=== PATIENT | male | born 1965 | race Caucasian/White ===

== ENCOUNTER 2022-01-20 07:43 | Outpatient (REF) | payer MEDICAID, SELFPAY ==
--- NOTE | 2022-01-20 07:58 | EEG_ITS ---
The waking background activity consists of a moderate voltage, 7 hertz, diffuse theta intermixed with low voltage fast frequencies anteriorly. Photic stimulation is without activation. Hyperventilation was omitted. No sleep stages identified. No focal, lateralizing, or paroxysmal discharges seen. IMPRESSION: This is an abnormal EEG due to mild diffuse background slowing consistent with a diffuse encephalopathic process. No epileptiform discharges or focal abnormalities are seen. MD GARRET Conley/CAIO / [id number]
== END 2022-01-20 07:44 | disposition home or self-care (01) ==
LOC: HO.NEURO 07:43
PROVIDERS: PCP Hospitalist; Visit Provider Hospitalist
DX: S06.5X9S Traumatic subdural hemorrhage with loss of consciousness of unspecified duration, sequela (principal); S06.2X9S Diffuse traumatic brain injury with loss of consciousness of unspecified duration, sequela
CPT/HCPCS: 95816

== ENCOUNTER 2023-03-09 11:24 | Outpatient (AMB) | payer OTHER, SELFPAY ==
--- NOTE | 2023-03-09 11:26 | MHC.OFFVIS ---
Intake Vital Signs 03/09/23 11:28 Height 5 ft 11 in Weight 231 lb 7.766 oz BMI 32.3 BP 108/68 Blood Pressure Location Lt brachial Position Sitting Pulse 62 Intake Visit Reasons: Colonoscopy Screening Intake Note: Raymond presents in the office as a new patient colonoscopy screening. CC: He is not having any concerns today just nervous for the colonoscopy. Allergies No Known Allergies Allergy (Verified 03/09/23 11:28) HPI Colonoscopy Screening HPI Details 57 year old? 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 Patient is here from [facility] accompanied by staff. Patient was sent to us by his PCP.? This is his first colonoscopy screening.? Patient denies any gastrointestinal symptoms in the past or at present.? Patient is alert and oriented for the most part. Able to answer questions. Denies any personal or family history of gastrointestinal disease, colon polyps, or cancer.? Denies history of difficulty with sedation or anesthesia in the past.? Negative for history of sleep apnea.? Denies any history of cardiac, renal, pulmonary, or hepatic disease.?? No history of infectious? diseases like hepatitis A, B, C, HIV or tuberculosis.? Patient is not on any anticoagulation therapy. COUNT INCLUDES [facility] Medical History (Updated 03/09/23 @ 14:22 by Zakia Monreal [facility]) Traumatic subdural hematoma with loss of consciousness BPH (benign prostatic hyperplasia) Hypothyroidism (acquired) Schizophrenia Diffuse traumatic brain injury Social History (Updated 03/09/23 @ 11:29 by DAYTON Mayorga) Household Members: None and Other Alcohol intake: current Alcohol intake frequency: does not drink Tobacco use type: Cigarette Cigarette Packs Per Day: 0.5 Use of substances other than those prescribed or required for medical reasons: No Review of Systems Const Denies weight gain and Denies weight loss ENT Reports no additional complaints, Denies dysphagia and Denies odynophagia Card Reports no additional complaints Resp Reports no additional complaints GI Denies abdominal pain, Denies belching, Denies melena, Denies bloating, Denies change in bowel habits, Denies dysphagia, Denies excessive flatus, Denies dyspepsia, Denies heartburn, Denies diarrhea, Denies loose stools, Denies nausea, Denies odynophagia and Denies vomiting Reports no additional complaints Musc Reports no additional complaints Neuro Reports no additional complaints Psych Reports no additional complaints Endo Reports no additional complaints Physical Exam Vital Signs: Last Vital Signs Pulse 62 03/09/23 11:28 BP 108/68 03/09/23 11:28 BMI result Body Mass Index 32.3 Const General: healthy appearing, no acute distress and well developed Nutritional Appearance: well nourished Orientation/consciousness: oriented to person and oriented to place Limitations: behavioral limitations HEENT Head: Yes normal to inspection, Yes normocephalic and Yes atraumatic Face and sinus: Yes normal facial exam Mouth: Normal oral and palatal mucosa present Throat: Yes posterior oropharynx normal, Yes tonsils normal and Yes uvula midline Eyes General: appearance normal, both eyes and all related structures Neck Neck: Yes normal visual inspection, Yes full ROM and Yes trachea midline Thyroid: Thyroid normal Resp Effort & Inspection: normal respiratory effort, able to speak in complete sentences, no tracheal deviation and symmetric chest movement Auscultation: clear to auscultation bilaterally Cardio Rate: regular rate Heart sounds: S1 normal heart sound present and S2 normal heart sound present GI Inspection: Yes normal to inspection, No distended and Yes obesity Palpation (GI): Soft to palpation, not firm, nontender and No hepatosplenomegaly present Auscultation: normal bowel sounds General: Yes no CVA tenderness Back/Spine/Pelvis Back: no CVA tenderness Skin General skin exam: elasticity normal, turgor normal and dry skin Neuro General: oriented to person and oriented to place Psych Appearance: grossly normal Mental Status: mental status grossly normal Speech and movement: Clear speech present Assessment & Plan Assessment & Plan (1) Screen for colon cancer: Code(s): Z12.11 - Encounter for screening for malignant neoplasm of colon Plan: Patient denies any GI, cardiac or respiratory symptoms.? Denies any issues with anesthesia in the past.? Denies any history of sleep apnea.? No history infectious diseases in the past or present.? Not on any anticoagulation therapy.? No family or personal history of colon cancer or polyps.? Patient denies melena, hematochezia, unintentional weight loss or ribbon like stools.? Discussed at length the pre-procedure,? prep, diet & medications as well as what to expect prior, during and after the procedure.?? Stressed the importance of good bowel prep. ?Recommended the use of Vaseline or Calmoseptine OTC & baby wipes with bowel movements to promote comfort.? ?Patient verbalizes understanding and agrees to plan of care.? He was given the opportunity to ask questions and all questions answered.? We will see him after the procedure.? Medications: New polyethylene glycol 3350 (Miralax) As directed by gastroenterology department at [facility] 238 grams PO ONCE 238 grams 0RF Z12.11 - Encounter for screening for malignant neoplasm of colon bisacodyl (Dulcolax (bisacodyl)) take 2 tabs at noon the day before your colonoscopy 10 mg (2 x 5 mg) PO ONCE 1 day 2 tabs 0RF Z12.11 - Encounter for screening for malignant neoplasm of colon Coding Level of Care Code New Pt Level 3 (24190) Diagnoses Screen for colon cancer Z12.11 Time Spent (min) 40 Comment 30 minutes spent with patient and additional 10 minutes spent reviewing his records
[2023-03-09 11:28] VITALS: BP 108/68; PULSE 62; BMI 32.3
== END 2023-03-09 12:52 | disposition home or self-care (01) ==
PROVIDERS: PCP Hospitalist; Visit Provider Nurse Practitioner Family
DX: Z12.11 Encounter for screening for malignant neoplasm of colon (principal); Z01.818 Encounter for other preprocedural examination
CPT/HCPCS: 99203

== ENCOUNTER → 2023-03-09 11:24 | Outpatient (BNVA) | payer MEDICAID, SELFPAY | PROVIDERS: PCP Hospitalist; Visit Provider Nurse Practitioner Family | DX: Z01.818 Encounter for other preprocedural examination (principal) | CPT/HCPCS: 99202 ==

== ENCOUNTER 2023-06-16 06:27 | Day surgery (SDC) | payer MEDICAID, SELFPAY ==
[2023-06-14 12:56] VITALS: BMI 32.2
--- NOTE | 2023-06-15 11:49 | HO.ANESPROP2 ---
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, schizophrenia [facility] Past Medical History Medical History Personal history of COVID-19 Presbyopia Dysphagia Zygomatic fracture, left side, sequela Zygomatic fracture, right side, sequela Opioid abuse Insomnia Constipation Traumatic subdural hematoma with loss of consciousness BPH (benign prostatic hyperplasia) Hypothyroidism (acquired) Schizophrenia Diffuse traumatic brain injury Social History Social History Household Members: None and Other Alcohol intake: current Alcohol intake frequency: former alcohol drinker Patient Tobacco Use Status: Former Tobacco user Tobacco use type: Cigarette Cigarette Packs Per Day: 0.5 Are you DNR?: No Advance Directives: No Advance Directives Information Provided: Yes Nutrition Risks: No Nutritional Risk Meds Allergies Allergy/AdvReac Type Severity Reaction Status Date / Time No Known Allergies Allergy Verified 03/09/23 11:28 Home Medications Medication Instructions Recorded Confirmed Last Taken Type acetaminophen 325 mg tablet 325 mg PO QID PRN Pain 03/09/23 06/14/23 Unknown History benztropine 1 mg tablet 1 mg PO BEDTIME 03/09/23 06/14/23 Unknown History clonazepam 0.5 mg tablet 0.5 mg PO BID 03/09/23 06/14/23 Unknown History clozapine 25 mg tablet 75 mg PO BEDTIME 03/09/23 06/14/23 Unknown History ibuprofen 600 mg tablet 600 mg PO Q6H PRN Back Pain 03/09/23 06/14/23 Unknown History lactulose 10 gram/15 mL oral 30 ml PO BID 03/09/23 06/14/23 Unknown History solution propranolol 20 mg tablet 20 mg PO DAILY 03/09/23 06/14/23 Unknown History divalproex 250 mg tablet,extended 250 mg PO DAILY 06/14/23 06/14/23 Unknown History release 24 hr divalproex 500 mg tablet,extended 500 mg PO BEDTIME 06/14/23 06/14/23 Unknown History release 24 hr docusate sodium 100 mg capsule 100 mg PO DAILY 06/14/23 06/14/23 Unknown History guaifenesin 200 mg/5 mL oral liquid 400 mg PO Q4H PRN Congestion 06/14/23 06/14/23 Unknown History levothyroxine 50 mcg tablet 50 mcg PO DAILY 06/14/23 06/14/23 Unknown History lithium carbonate 300 mg tablet 300 mg PO BID 06/14/23 06/14/23 Unknown History polyethylene glycol 3350 17 238 g PO ONCE 06/14/23 06/14/23 Unknown History gram/dose oral powder (Miralax) sennosides 8.6 mg tablet (senna) 8.6 mg PO DAILY PRN Constipation 06/14/23 06/14/23 Unknown History sodium phosphates 19 gram-[address] DAILY PRN Constipation 06/14/23 06/14/23 Unknown History gram/118 mL enema (Fleet Enema) tamsulosin 0.4 mg capsule 0.4 mg PO BEDTIME 06/14/23 06/14/23 Unknown History Exam Height,Weight and Vital Signs: Height 5 ft 11 in Weight 104.78 kg Assessment and Plan Assessment Anesthesia Assessment: Chart Reviewed Documented by User: Caron Lemon MD 06/16/23 07:46 PMF[facility] Past Medical History Medical History Personal history of COVID-19 Presbyopia Dysphagia Zygomatic fracture, left side, sequela Zygomatic fracture, right side, sequela Opioid abuse Insomnia Constipation Traumatic subdural hematoma with loss of consciousness BPH (benign prostatic hyperplasia) Hypothyroidism (acquired) Schizophrenia Diffuse traumatic brain injury Family History Family history of problems with anesthesia: No Surgical History History of Problems with Anesthesia: Yes Social History Social History Household Members: None and Other Alcohol intake: current Alcohol intake frequency: former alcohol drinker Patient Tobacco Use Status: Former Tobacco user Tobacco use type: Cigarette Cigarette Packs Per Day: 0.5 Are you DNR?: No Advance Directives: No Advance Directives Information Provided: Yes Nutrition Risks: No Nutritional Risk Meds Allergies Allergy/AdvReac Type Severity Reaction Status Date / Time No Known Allergies Allergy Verified 03/09/23 11:28 Home Medications Medication Instructions Recorded Confirmed Last Taken Type acetaminophen 325 mg tablet 325 mg PO QID PRN Pain 03/09/23 06/14/23 Unknown History benztropine 1 mg tablet 1 mg PO BEDTIME 03/09/23 06/14/23 Unknown History clonazepam 0.5 mg tablet 0.5 mg PO BID 03/09/23 06/14/23 Unknown History clozapine 25 mg tablet 75 mg PO BEDTIME 03/09/23 06/14/23 Unknown History ibuprofen 600 mg tablet 600 mg PO Q6H PRN Back Pain 03/09/23 06/14/23 Unknown History lactulose 10 gram/15 mL oral 30 ml PO BID 03/09/23 06/14/23 Unknown History solution propranolol 20 mg tablet 20 mg PO DAILY 03/09/23 06/14/23 Unknown History divalproex 250 mg tablet,extended 250 mg PO DAILY 06/14/23 06/14/23 Unknown History release 24 hr divalproex 500 mg tablet,extended 500 mg PO BEDTIME 06/14/23 06/14/23 Unknown History release 24 hr docusate sodium 100 mg capsule 100 mg PO DAILY 06/14/23 06/14/23 Unknown History guaifenesin 200 mg/5 mL oral liquid 400 mg PO Q4H PRN Congestion 06/14/23 06/14/23 Unknown History levothyroxine 50 mcg tablet 50 mcg PO DAILY 06/14/23 06/14/23 Unknown History lithium carbonate 300 mg tablet 300 mg PO BID 06/14/23 06/14/23 Unknown History polyethylene glycol 3350 17 238 g PO ONCE 06/14/23 06/14/23 Unknown History gram/dose oral powder (Miralax) sennosides 8.6 mg tablet (senna) 8.6 mg PO DAILY PRN Constipation 06/14/23 06/14/23 Unknown History sodium phosphates 19 gram-[address] DAILY PRN Constipation 06/14/23 06/14/23 Unknown History gram/118 mL enema (Fleet Enema) tamsulosin 0.4 mg capsule 0.4 mg PO BEDTIME 06/14/23 06/14/23 Unknown History Exam Airway Mallampati Class: III TM Dist: <=3cm Neck ROM: Limited Heart: rrr Lungs: cta Assessment and Plan Assessment Anesthesia Assessment: Anesthesia Plan Discussed (telephone consent) Final Anesthetic Review Family History of Problems with Anesthesia: No History of Problems with Anesthesia: Yes NPO: Yes ASA Class: III Final Preanesthetic Review: No Changes in Pt Med Stat, Meds/Allgs Chart Reviewed, Consent Obtained/Reviewed and Anes Risks/Benef Reviewed Patient Risk: Intermediate Procedure Risk: Low Anesthetic Plan Anesthetic Plan: MAC: Disposition: Standard PACU Documented by User: Sneha Emery MD 06/16/23 09:05 [facility] Past Medical History Medical History Personal history of COVID-19 Presbyopia Dysphagia Zygomatic fracture, left side, sequela Zygomatic fracture, right side, sequela Opioid abuse Insomnia Constipation Traumatic subdural hematoma with loss of consciousness BPH (benign prostatic hyperplasia) Hypothyroidism (acquired) Schizophrenia Diffuse traumatic brain injury Social History Social History Household Members: None and Other Alcohol intake: current Alcohol intake frequency: former alcohol drinker Patient Tobacco Use Status: Former Tobacco user Tobacco use type: Cigarette Cigarette Packs Per Day: 0.5 Are you DNR?: No Advance Directives: No Advance Directives Information Provided: Yes Nutrition Risks: No Nutritional Risk Meds Allergies Allergy/AdvReac Type Severity Reaction Status Date / Time No Known Allergies Allergy Verified 03/09/23 11:28 Home Medications Medication Instructions Recorded Confirmed Last Taken Type acetaminophen 325 mg tablet 325 mg PO QID PRN Pain 03/09/23 06/14/23 Unknown History benztropine 1 mg tablet 1 mg PO BEDTIME 03/09/23 06/14/23 Unknown History clonazepam 0.5 mg tablet 0.5 mg PO BID 03/09/23 06/14/23 Unknown History clozapine 25 mg tablet 75 mg PO BEDTIME 03/09/23 06/14/23 Unknown History ibuprofen 600 mg tablet 600 mg PO Q6H PRN Back Pain 03/09/23 06/14/23 Unknown History lactulose 10 gram/15 mL oral 30 ml PO BID 03/09/23 06/14/23 Unknown History solution propranolol 20 mg tablet 20 mg PO DAILY 03/09/23 06/14/23 Unknown History divalproex 250 mg tablet,extended 250 mg PO DAILY 06/14/23 06/14/23 Unknown History release 24 hr divalproex 500 mg tablet,extended 500 mg PO BEDTIME 06/14/23 06/14/23 Unknown History release 24 hr docusate sodium 100 mg capsule 100 mg PO DAILY 06/14/23 06/14/23 Unknown History guaifenesin 200 mg/5 mL oral liquid 400 mg PO Q4H PRN Congestion 06/14/23 06/14/23 Unknown History levothyroxine 50 mcg tablet 50 mcg PO DAILY 06/14/23 06/14/23 Unknown History lithium carbonate 300 mg tablet 300 mg PO BID 06/14/23 06/14/23 Unknown History polyethylene glycol 3350 17 238 g PO ONCE 06/14/23 06/14/23 Unknown History gram/dose oral powder (Miralax) sennosides 8.6 mg tablet (senna) 8.6 mg PO DAILY PRN Constipation 06/14/23 06/14/23 Unknown History sodium phosphates 19 gram-[address] DAILY PRN Constipation 06/14/23 06/14/23 Unknown History gram/118 mL enema (Fleet Enema) tamsulosin 0.4 mg capsule 0.4 mg PO BEDTIME 06/14/23 06/14/23 Unknown History Exam Airway Denture: Upper and Lower
--- NOTE | 2023-06-16 06:54 | P.HPSUR_ITS ---
Pre-Procedural Eval Section A Date of Service: 06/16/23 Section B Chief Complaint: screening Relevant Family History (Specify if Yes): No Relevant Social History: Tobacco Use Present Medications: see Short Stay Collaborative assessment Medical History: Significant History (Traumatic subdural hematoma with loss of consciousness BPH (benign prostatic hyperplasia) Hypothyroidism (acquired) Schizophrenia Diffuse traumatic brain injury) History of Previous Operations: No relevant previous surgery Allergies: Allergies Allergy/AdvReac Type Severity Reaction Status Date / Time No Known Allergies Allergy Verified 03/09/23 11:28 Review of Systems Sugical H&P ROS: Negative: Constitution, Cardiovascular, Respiratory, Neurological, Psychiatric, Hem-Onc, Allergic/Immunologic, Gastrointestinal, Genitourinary, Musculoskeletal, Integumentary, Endocrine and Eyes/Ea rs/Nose/Throat Exam Surgical H&P Exam: Normal: HEENT, Normal: Heart, Normal: Lungs, Normal: Extremities, Normal: Abdomen, Normal: Skin and Normal: Neurological Plan Diagnosis/Plan: Unchanged I have reviewed the history and physical and performed a pertinent physical examination on my patient. No changes have occurred unless specified. Time Spent With Patient Time: Total time managing care of this patient today ____ minutes.
[2023-06-16 07:05] VITALS: BP 136/76; PULSE 76; RESP 20; TEMP 36.3; O2SAT 97
[2023-06-16 07:22] VITALS: BMI 29.4
[2023-06-16] MEDS: Lactated Ringers 1,000 ML 100 ML IVCONT (07:38)
--- NOTE | 2023-06-16 08:58 | W.PM.OPN ---
Operative Note Operative Note Date of Service: 06/16/23 Narrative: Operative Information Procedure Description: Colonoscopy Indication: screening Anesthesia: MAC COLONOSCOPY Instrument: Olympus variable stiffness ADULT scope 190L Colonoscopy Monitoring: Vital signs and clinical assessment, continuous EKG monitoring, Pulse oximetry, Carbon Dioxide monitoring and blood pressure monitoring were done throughout the procedure. Colon withdrawal time was 7 minutes. Procedure: The patient was placed in the left lateral decubitis position and pre-procedure medications were administered. After a digital rectal examination of the ano-rectum, the video colonoscope was inserted into the rectum and advanced through the colon to the cecum/TI. The colonoscope was slowly withdrawn in a retrograde panoramic fashion and the colon mucosa was carefully examined including a retroflexed view of the rectum. Findings and interventions are described below. Procedure Difficulty: v difficult--appears to have right inguinal hernia and scope was looping--external hemorrhoid noted Findings: Terminal Ileum-not reached Cecum:not reached Ascending Colon: distal --normal Transverse Colon - 6-8 mm sessile polyp removed with cold snare Descending Colon: moderate diverticulosis Sigmoid Colon: moderate severe diverticulosis- 10 mm sessile polyp removed with cold snare Rectum: Retroflexion with small internal hemorrhoids, grade 1 Anorectum - normal Colon preparation: Gillett Bowel Preparation Scale Right colon; 2 Transverse colon: 2 Left colon; 2 (0 = Unprepared colon segment with mucosa not seen due to solid stool that cannot be cleared. 1 = Portion of mucosa of the colon segment seen, but other areas of the colon segment not well seen due to staining, residual stool and/or opaque liquid. 2 = Minor amount of residual staining, small fragments of stool and/or opaque liquid, but mucosa of colon segment seen well. 3 = Entire mucosa of colon segment seen well with no residual staining, small fragments of stool or opaque liquid) Impression and Post Procedure Diagnosis: incomplete colonoscopy external hemorrhoid polyps internal hemorrhoids diverticular disease Plan: High fiber diet leaflet Avoid straining at stool, epsom salts and sitz bath, anusol supps or cream Repeat Colonoscopy in 6-12 months or earlier if clinically indicated--refer to surgery for hernia assessment Above findings were reviewed with the patient and relevant handouts were provided if indicated.
[2023-06-16 09:51] VITALS: BP 97/63; PULSE 67; RESP 16; TEMP 36.1; O2SAT 96
[2023-06-16 10:07] VITALS: BP 126/87; PULSE 75; RESP 18; TEMP 36.1; O2SAT 97
== END 2023-06-16 10:36 | disposition home or self-care (01) ==
PROVIDERS: PCP Hospitalist; Visit Provider Internal Medicine Gastroenterology
PROC: 0DJD8ZZ Inspection of Lower Intestinal Tract, Via Natural or Artificial Opening Endoscopic (ICD-10-PCS; CPT 45378; principal; 2023-06-16 09:20)
DX: Z12.11 Encounter for screening for malignant neoplasm of colon (principal); D12.5 Benign neoplasm of sigmoid colon; K63.5 Polyp of colon; K57.30 Diverticulosis of large intestine without perforation or abscess without bleeding; K64.0 First degree hemorrhoids; K64.4 Residual hemorrhoidal skin tags; K40.90 Unilateral inguinal hernia, without obstruction or gangrene, not specified as recurrent; N40.0 Benign prostatic hyperplasia without lower urinary tract symptoms; Z87.820 Personal history of traumatic brain injury; F20.9 Schizophrenia, unspecified; E03.9 Hypothyroidism, unspecified; Z79.899 Other long term (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; Z79.1 Long term (current) use of non-steroidal anti-inflammatories (NSAID); Z86.16 Personal history of COVID-19; Z87.19 Personal history of other diseases of the digestive system
CPT/HCPCS: 45385; 88305; J2704

== ENCOUNTER → 2023-06-16 06:27 | Outpatient (BNV) | payer OTHER, SELFPAY | PROVIDERS: PCP Hospitalist; Visit Provider Internal Medicine Gastroenterology | DX: Z12.11 Encounter for screening for malignant neoplasm of colon (principal); D12.3 Benign neoplasm of transverse colon; D12.5 Benign neoplasm of sigmoid colon; K57.30 Diverticulosis of large intestine without perforation or abscess without bleeding; K64.0 First degree hemorrhoids; Z91.198 Patient's noncompliance with other medical treatment and regimen for other reason | CPT/HCPCS: 45385 ==

== ENCOUNTER 2023-06-30 09:40 | Outpatient (AMB) | payer OTHER, SELFPAY ==
--- NOTE | 2023-06-30 09:48 | MHC.OFFVIS ---
Intake Vital Signs 06/30/23 09:49 Height 5 ft 11 in Weight 208 lb BMI 29.0 BP 95/56 L Blood Pressure Location Lt brachial Position Sitting Pulse 64 Intake Visit Reasons: S/p colon Intake Note: Raymond presents in the office as a follow up colonoscopy. CC: He states that he does not remember having a colonoscopy. 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 Denies any issues with anesthesia in the past.? Denies any history of sleep apnea.? No history infectious diseases in the past or present.? Not on any anticoagulation therapy.? No family or personal history of colon cancer or polyps.? Patient denies melena, hematochezia, unintentional weight loss or ribbon like stools.? Discussed at length the pre-procedure,? prep, diet & medications as well as what to expect prior, during and after the procedure.?? Stressed the importance of good bowel prep. ?Recommended the use of Vaseline or Calmoseptine OTC & baby wipes with bowel movements to promote comfort.? ?Patient verbalizes understanding and agrees to plan of care.? He was given the opportunity to ask questions and all questions answered.? We will see him after the procedure.? Plan Medications New polyethylene glycol 3350 (Miralax) As directed by gastroenterology department at [facility] 238 grams PO ONCE 238 grams 0RF Z12.11 bisacodyl (Dulcolax (bisacodyl)) take 2 tabs at noon the day before your colonoscopy 10 mg (2 x 5 mg) PO ONCE 1 day 2 tabs 0RF Z12.11 COLONOSCOPY Findings: Terminal Ileum-not reached Cecum:not reached Ascending Colon: distal --normal Transverse Colon - 6-8 mm sessile polyp removed with cold snare Descending Colon: moderate diverticulosis Sigmoid Colon: moderate severe diverticulosis- 10 mm sessile polyp removed with cold snare Rectum: Retroflexion with small internal hemorrhoids, grade 1 Anorectum - normal Colon preparation: [place] Bowel Preparation Scale Right colon; 2 Transverse colon: 2 Left colon; 2 (0 = Unprepared colon segment with mucosa not seen due to solid stool that cannot be cleared. 1 = Portion of mucosa of the colon segment seen, but other areas of the colon segment not well seen due to staining, residual stool and/or opaque liquid. 2 = Minor amount of residual staining, small fragments of stool and/or opaque liquid, but mucosa of colon segment seen well. 3 = Entire mucosa of colon segment seen well with no residual staining, small fragments of stool or opaque liquid) Impression and Post Procedure Diagnosis: incomplete colonoscopy external hemorrhoid polyps internal hemorrhoids diverticular disease Plan: High fiber diet leaflet Avoid straining at stool, epsom salts and sitz bath, anusol supps or cream Repeat Colonoscopy in 6-12 months or earlier if clinically indicated--refer to surgery for hernia assessment PATHOLOGY RESULTS: Diagnosis A. Colon, transverse, polypectomy: Small fragments of food; no colonic epithelium identified. B. Colon, sigmoid, polypectomy: Tubular adenoma; negative for high-grade dysplasia or carcinoma TODAY'S VISIT: Patient is here today for follow-up and to discuss colonoscopy results. Patient denies any ill effects from the prep, anesthesia or procedure itself. Patient is from [facility] and is accompanied by staff. Patient is able to answer questions, however during the visit he is talking about government and conspiracy. Colonoscopy results and biopsy results as well as recommendation discussed with patient. As mentioned above unable to reach cecum due to possible right inguinal hernia. Patient was referred to surgery and has an appointment on July 14.. Patient denies any melena, hematochezia, unintentional weight loss or ribbon like stools. Patient reports that he is moving his bowels well without any issues. Denies any dyspepsia, dysphagia or odynophagia. No GI concerns today is [facility] Medical History (Updated 06/30/23 @ 17:26 by VASU AlvaradoP-BC) Tubular adenoma Personal history of COVID-19 Presbyopia Dysphagia Zygomatic fracture, left side, sequela Zygomatic fracture, right side, sequela Opioid abuse Insomnia Constipation Traumatic subdural hematoma with loss of consciousness BPH (benign prostatic hyperplasia) Hypothyroidism (acquired) Schizophrenia Diffuse traumatic brain injury Surgical History (Updated 06/30/23 @ 09:50 by DAYTON Mayorga) Hx of colonoscopy Social History Household Members: None and Other Alcohol intake: current Alcohol intake frequency: former alcohol drinker Patient Tobacco Use Status: Former Tobacco user Tobacco use type: Cigarette Cigarette Packs Per Day: 0.5 Review of Systems Const Denies weight gain and Denies weight loss ENT Reports no additional complaints, Denies dysphagia and Denies odynophagia Card Reports no additional complaints Resp Reports no additional complaints GI Denies abdominal pain, Denies belching, Denies melena, Denies bloating, Denies change in bowel habits, Denies dysphagia, Denies excessive flatus, Denies dyspepsia, Denies heartburn, Denies diarrhea, Denies loose stools, Denies nausea, Denies odynophagia and Denies vomiting Reports no additional complaints Musc Reports no additional complaints Neuro Reports no additional complaints Psych Reports no additional complaints Endo Reports no additional complaints Physical Exam Vital Signs: Last Vital Signs Pulse 64 06/30/23 09:49 BP 95/56 L 06/30/23 09:49 BMI result Body Mass Index 29.0 Const General: healthy appearing, no acute distress and well developed Nutritional Appearance: well nourished Orientation/consciousness: oriented to person Limitations: behavioral limitations HEENT Head: Yes normal to inspection, Yes normocephalic and Yes atraumatic Face and sinus: Yes normal facial exam Mouth: Normal oral and palatal mucosa present Throat: Yes posterior oropharynx normal, Yes tonsils normal and Yes uvula midline Eyes General: appearance normal, both eyes and all related structures Neck Neck: Yes normal visual inspection, Yes full ROM and Yes trachea midline Thyroid: Thyroid normal Resp Effort & Inspection: normal respiratory effort, able to speak in complete sentences, no tracheal deviation and symmetric chest movement Auscultation: clear to auscultation bilaterally Cardio Rate: regular rate GI Inspection: Yes normal to inspection, No distended and Yes obesity Palpation (GI): Soft to palpation, not firm, nontender and No hepatosplenomegaly present Auscultation: normal bowel sounds General: Yes no CVA tenderness Back/Spine/Pelvis Back: no CVA tenderness Skin General skin exam: elasticity normal, turgor normal and dry skin Neuro General: oriented to person Psych Appearance: grossly normal Speech and movement: Clear speech present Assessment & Plan Assessment & Plan (1) Hernia: Code(s): K46.9 - Unspecified abdominal hernia without obstruction or gangrene (2) Hemorrhoid: Code(s): K64.9 - Unspecified hemorrhoids Qualifiers: Hemorrhoid type: unspecified Qualified Code(s): K64.9 - Unspecified hemorrhoids (3) Tubular adenoma: Code(s): D36.9 - Benign neoplasm, unspecified site (4) Status post colonoscopy: Code(s): Z98.890 - Other specified postprocedural states Plan Tubular adenoma found. Incomplete colonoscopy due to possible right inguinal hernia. Patient has appointment with Dr. Tony on July 14. Recommendation was made for patient to return for colorectal screening 6-12 months. Patient will need to have surgery done before going for colonoscopy. Recommendations send with staff to call our office after hernia repair when he feels better so we can discuss going for another colonoscopy to check right side of the colon. Thank you for allowing me to participate in his care Coding Level of Care Code Est Pt Level 3 (56177) Diagnoses Hernia K46.9 Hemorrhoids, unspecified hemorrhoid type K64.9 Hemorrhoid type: unspecified Tubular adenoma D36.9 Status post colonoscopy Z98.890 Time Spent (min) 25 Comment 15 minutes spent with patient and additional 10 minutes spent reviewing his records
[2023-06-30 09:49] VITALS: BP 95/56; PULSE 64; BMI 29.0
== END 2023-06-30 10:47 | disposition home or self-care (01) ==
PROVIDERS: PCP Hospitalist; Visit Provider Nurse Practitioner Family
DX: K46.9 Unspecified abdominal hernia without obstruction or gangrene (principal); K64.9 Unspecified hemorrhoids; D36.9 Benign neoplasm, unspecified site; Z98.890 Other specified postprocedural states
CPT/HCPCS: 99213

== ENCOUNTER → 2023-06-30 09:40 | Outpatient (BNVA) | payer MEDICAID, SELFPAY | PROVIDERS: PCP Hospitalist; Visit Provider Nurse Practitioner Family | DX: K64.9 Unspecified hemorrhoids (principal); K46.9 Unspecified abdominal hernia without obstruction or gangrene; D36.9 Benign neoplasm, unspecified site; Z98.890 Other specified postprocedural states | CPT/HCPCS: 99212 ==

== ENCOUNTER 2023-07-14 10:51 | Outpatient (AMB) | payer OTHER, SELFPAY ==
[2023-07-14 10:52] VITALS: BP 134/80; PULSE 68; BMI 29.6
--- NOTE | 2023-07-14 10:52 | MHC.OFFVIS ---
Intake Vital Signs 07/14/23 10:52 Height 5 ft 11 in Weight 212 lb BMI 29.6 BP 134/80 Blood Pressure Location Rt brachial Position Sitting Pulse 68 Intake Visit Reasons: RIH Intake Note: This patient presents for an assessment for right inguinal hernia. Patient c/o; reports no bulge, reports no pain. 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 Accompanied by: Other Relationship Allergies No Known Allergies Allergy (Verified 07/14/23 11:02) Medication List - Last Reconciled 07/14/23 by Westley Tony MD acetaminophen 325 mg PO QID PRN benztropine 1 mg PO BEDTIME bisacodyl (Dulcolax (bisacodyl)) 10 mg (2 x 5 mg) PO ONCE 1 day clonazepam 0.5 mg PO BID clozapine 75 mg PO BEDTIME divalproex ER 250 mg PO DAILY divalproex ER 500 mg PO BEDTIME docusate sodium 100 mg PO DAILY guaifenesin 400 mg PO Q4H PRN ibuprofen 600 mg PO Q6H PRN lactulose 30 mL PO BID levothyroxine 50 mcg PO DAILY lithium carbonate 300 mg PO BID polyethylene glycol 3350 (Miralax) 238 grams PO ONCE propranolol 20 mg PO DAILY sennosides (senna) 8.6 mg PO DAILY PRN sodium phosphates 19-7 gram/118 mL (Fleet Enema) 118 mL [place] DAILY PRN tamsulosin 0.4 mg PO BEDTIME HPI RIH HPI Details 57-year-old male referred for a right inguinal hernia as well as hemorrhoid issues. He has a resident of [facility]. The patient is not a good historian. He has a history of traumatic brain injury and schizophrenia so he does not really provide any significant details. He does state that he felt that he is hemorrhoids were swollen about a month ago. He denies any problems with his left groin. He denies any GI complaints. [facility] Medical History Right groin mass Tubular adenoma Personal history of COVID-19 Presbyopia Dysphagia Zygomatic fracture, left side, sequela Zygomatic fracture, right side, sequela Opioid abuse Insomnia Constipation Traumatic subdural hematoma with loss of consciousness BPH (benign prostatic hyperplasia) Hypothyroidism (acquired) Schizophrenia Diffuse traumatic brain injury Surgical History Hx of colonoscopy Social History Household Members: None and Other Alcohol intake: current Alcohol intake frequency: former alcohol drinker Patient Tobacco Use Status: Former Tobacco user Tobacco use type: Cigarette Cigarette Packs Per Day: 0.5 Review of Systems Const Denies chills and Denies fever(s) Eyes Denies blurry vision Card Denies chest pain, Denies dyspnea and Denies dyspnea on exertion Resp Denies cough, Denies dyspnea and Denies dyspnea on exertion GI Denies hematochezia and Denies change in bowel habits Denies hematuria and Denies difficulty urinating Musc Denies back pain and Denies limited range of motion Neuro Details: Has traumatic brain injury Denies focal weakness and Denies convulsions Psych Details: Known schizophrenia Denies depression and Denies mood swings Physical Exam Const General: comfortable and no acute distress Orientation/consciousness: patient oriented x3 Neck Neck: Yes no lymphadenopathy Resp Auscultation: clear to auscultation bilaterally Cardio Rhythm: regular rhythm GI Other: Partially reducible mass left groin all the way to the scrotum on the left, nontender Rectal exam - small external hemorrhoid on the left, nontender, nonthrombosed Palpation (GI): Soft to palpation, nontender and no guarding Neuro General: patient oriented x3 Assessment & Plan Assessment & Plan (1) Right groin mass: Code(s): R19.09 - Other intra-abdominal and pelvic swelling, mass and lump Plan: He has a partially reducible mass on the left groin all the way to the left scrotum. This appears to be consistent with an inguinal hernia. I am going to order a CT scan to define this so as to allow as to evaluate for surgical approach He says that this does not bother him at all. He denies any pain or tenderness. (2) Hemorrhoid: Code(s): K64.9 - Unspecified hemorrhoids Qualifiers: Hemorrhoid type: unspecified Qualified Code(s): K64.9 - Unspecified hemorrhoids Plan: Exam shows a small external hemorrhoid on the right. He says that this did seem like this was swollen a month ago. He denies any problems at this time. He denies any symptoms. I had not recommend any intervention for this at this time. Orders: Orders CT abdomen pelvis wo IV con Today R19.09 - Other intra-abdominal and pelvic swelling, mass and lump Coding Level of Care Code New Pt Level 3 (19751) Diagnoses Right groin mass R19.09 Hemorrhoids, unspecified hemorrhoid type K64.9 Hemorrhoid type: unspecified
== END 2023-07-14 11:12 | disposition home or self-care (01) ==
PROVIDERS: PCP Hospitalist; Referring Provider Internal Medicine Gastroenterology; Visit Provider Surgery
DX: R19.09 Other intra-abdominal and pelvic swelling, mass and lump (principal); K64.9 Unspecified hemorrhoids
CPT/HCPCS: 99203

== ENCOUNTER → 2023-07-14 10:51 | Outpatient (BNVA) | payer MEDICAID, SELFPAY | PROVIDERS: PCP Hospitalist; Referring Provider Internal Medicine Gastroenterology; Visit Provider Surgery | DX: R19.09 Other intra-abdominal and pelvic swelling, mass and lump (principal); K64.4 Residual hemorrhoidal skin tags | CPT/HCPCS: 99202 ==

== ENCOUNTER 2023-08-20 12:56 | Outpatient (REF) | payer OTHER, SELFPAY ==
--- NOTE | ~2023-08-20 | CT_ITS ---
EXAMINATION: CT ABDOMEN AND PELVIS WITHOUT CONTRAST CLINICAL INFORMATION: Other intra-abdominal and pelvic swelling, mass and lump. COMPARISON: None available. TECHNIQUE: Multidetector volumetric imaging was performed from the superior aspect of the liver through the pubic symphysis. Sagittal and coronal reformatted images were obtained on the technologist's workstation. This CT examination was performed using dose optimization techniques as appropriate, variously including the following: *Automated exposure control *Adjustment of mA and/or kV according to patient size (this includes techniques or standardized protocols for targeted exams where dose is matched to indication/reason for exam; i.e. extremities or head) *Use of iterative reconstruction technique DLP: 612 mGy-cm FINDINGS: LUNG BASES: The visualized lung bases are unremarkable. LIVER, GALLBLADDER, AND BILIARY TREE: The liver is normal in size, shape, and attenuation. No focal hepatic lesion or biliary ductal dilatation is present. The gallbladder is unremarkable with no evidence of radiopaque gallstones, gallbladder wall thickening, or obvious pericholecystic inflammatory changes. PANCREAS: Unremarkable. SPLEEN: Unremarkable. ADRENAL GLANDS: Unremarkable. KIDNEYS AND URETERS: The kidneys are normal in size, shape, and attenuation. No hydronephrosis, hydroureter, or calculi seen. A benign left upper pole 4.1 cm Bosniak class I renal cyst is noted which requires no additional imaging or followup. No solid renal masses are seen. BLADDER: Unremarkable. GASTROINTESTINAL TRACT: Diverticular changes are present in the colon without evidence of diverticulitis. The proximal sigmoid is within a left inguinal hernia (see below). The small and large bowel are otherwise unremarkable. The appendix is unremarkable. ABDOMINAL WALL: A left inguinal hernia is present. Nonobstructed sigmoid colon is present in the left inguinal hernia. LYMPH NODES: No retroperitoneal lymphadenopathy. VASCULAR: Unremarkable. PELVIC VISCERA: There is mild BPH. Seminal vesicles appear normal. OSSEOUS STRUCTURES: Mild degenerative changes are present in the hips, left greater than right. Degenerative changes are also present in the lower thoracic spine. CT/CT abdomen pelvis wo IV con IMPRESSION: 1. Left inguinal hernia containing nonobstructed sigmoid colon. 2. Incidental note made of colonic diverticulosis, mild BPH and degenerative changes in the hips and spine. Fleischner guidelines were followed.
== END 2023-08-20 12:57 | disposition home or self-care (01) ==
LOC: HO.CT 12:56
PROVIDERS: PCP Hospitalist; Visit Provider Surgery
DX: R19.09 Other intra-abdominal and pelvic swelling, mass and lump (principal)
CPT/HCPCS: 74176

== ENCOUNTER 2023-09-08 09:21 | Outpatient (AMB) | payer OTHER, SELFPAY ==
[2023-09-08 09:27] VITALS: BP 136/75; PULSE 80; BMI 29.8
--- NOTE | 2023-09-08 09:27 | MHC.OFFVIS ---
Intake Vital Signs 09/08/23 09:27 Height 5 ft 11 in Weight 214 lb BMI 29.8 BP 136/75 Blood Pressure Location Rt brachial Position Sitting Pulse 80 Intake Visit Reasons: Discuss CT scan results Intake Note: This patient presents to discuss CT scan results. Patient c/o; reports no changes since last visit. 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: No Accompanied by: ЕЛЕНА Lake Allergies No Known Allergies Allergy (Verified 09/08/23 09:29) Medication List - Last Reconciled 09/08/23 by Westley Tony MD acetaminophen 325 mg PO QID PRN benztropine 1 mg PO BEDTIME bisacodyl (Dulcolax (bisacodyl)) 10 mg (2 x 5 mg) PO ONCE 1 day clonazepam 0.5 mg PO BID clozapine 75 mg PO BEDTIME divalproex ER 250 mg PO DAILY divalproex ER 500 mg PO BEDTIME docusate sodium 100 mg PO DAILY guaifenesin 400 mg PO Q4H PRN ibuprofen 600 mg PO Q6H PRN lactulose 30 mL PO BID levothyroxine 50 mcg PO DAILY lithium carbonate 300 mg PO BID polyethylene glycol 3350 (Miralax) 238 grams PO ONCE propranolol 20 mg PO DAILY sennosides (senna) 8.6 mg PO DAILY PRN sodium phosphates 19-7 gram/118 mL (Fleet Enema) 118 mL [place] DAILY PRN tamsulosin 0.4 mg PO BEDTIME HPI Discuss CT scan results HPI Details 57-year-old male here for follow-up for a left inguin al hernia. I woul d seen him last [facility] 2023 for a l eft inguinal mass consistent with an inguinal hernia. I had sent him fo r a CT scan to def ine this hernia as these appeared to have bowel loops involved. He curr ently denies pain on the hernia. He is a a resident o f [facility]. The patient is not a good his joaquin. He has a history of traumat ic brain injury an d schizophrenia so he does not reall y provide any sign ificant details. He denies any GI complaints. [facility] Medical History (Updated 09/08/23 @ 09:40 by Westley Tony MD) Left inguinal hernia Right groin mass Tubular adenoma Personal history of COVID-19 Presbyopia Dysphagia Zygomatic fracture, left side, sequela Zygomatic fracture, right side, sequela Opioid abuse Insomnia Constipation Traumatic subdural hematoma with loss of consciousness BPH (benign prostatic hyperplasia) Hypothyroidism (acquired) Schizophrenia Diffuse traumatic brain injury Surgical History Hx of colonoscopy Social History Household Members: None and Other Alcohol intake: current Alcohol intake frequency: former alcohol drinker Patient Tobacco Use Status: Former Tobacco user Tobacco use type: Cigarette Cigarette Packs Per Day: 0.5 Review of Systems Const Denies chills and Denies fever(s) Card Denies chest pain, Denies dyspnea and Denies dyspnea on exertion Resp Denies cough, Denies dyspnea and Denies dyspnea on exertion GI Denies hematochezia and Denies change in bowel habits Denies hematuria and Denies difficulty urinating Musc Denies back pain and Denies limited range of motion Neuro Denies focal weakness and Denies convulsions Psych Denies depression and Denies mood swings Physical Exam Vital Signs: Last Vital Signs Pulse 80 09/08/23 09:27 BP 136/75 09/08/23 09:27 BMI result Body Mass Index 29.8 Const General: comfortable and no acute distress Orientation/consciousness: patient oriented x3 Neck Neck: Yes no lymphadenopathy Resp Auscultation: clear to auscultation bilaterally Cardio Rhythm: regular rhythm GI Other: Large left inguinal hernia extended the scrotum, but reducible, mildly tender Palpation (GI): Soft to palpation, nontender and no guarding Neuro General: patient oriented x3 Assessment & Plan Assessment & Plan (1) Left inguinal hernia: Code(s): K40.90 - Unilateral inguinal hernia, without obstruction or gangrene, not specified as recurrent Plan: He has a large left inguinal hernia extending to the scrotum on examination. This reveals a loop of sigmoid involved with the hernia on CT scan. The hernia is actually at least partially reducible on examination . I explained to him the technique of repair of the left inguinal hernia with mesh. I reviewed the risks including but not limited to bleeding, infections, bowel injury, recurrence, postop pain, as well as the benefits and alternatives. However he does appear to have significant cognitive deficiency so he does not seem to have the capability to understand the procedure. I will therefore discuss this option of repair of the left inguinal hernia with his primary care physician Dr. Vega as well as his conservator civil attorney Sandoval Kumar. There is no palpable hernia on the right groin. Coding Level of Care Code Est Pt Level 3 (65754) Diagnoses Left inguinal hernia K40.90
== END 2023-09-08 09:36 | disposition home or self-care (01) ==
PROVIDERS: PCP Hospitalist; Visit Provider Surgery
DX: K40.90 Unilateral inguinal hernia, without obstruction or gangrene, not specified as recurrent (principal)
CPT/HCPCS: 99213

== ENCOUNTER → 2023-09-08 09:21 | Outpatient (BNVA) | payer OTHER, SELFPAY | PROVIDERS: PCP Hospitalist; Visit Provider Surgery | DX: K40.90 Unilateral inguinal hernia, without obstruction or gangrene, not specified as recurrent (principal) | CPT/HCPCS: 99212 ==

== ENCOUNTER 2023-11-02 05:56 | Day surgery (SDC) | payer OTHER, SELFPAY ==
[2023-10-29 14:01] VITALS: BMI 29.8
[2023-11-02] VITALS (9 sets, daily range): BP systolic 113–138; BP diastolic 73–90; PULSE 67–81; RESP 10–17; TEMP 36.5–36.8; O2SAT 94–98; BMI 29.5
[2023-11-02] MEDS: Lactated Ringers 1,000 ML 100 ML IVCONT (06:44)
--- NOTE | 2023-11-02 07:20 | P.CONAN_ITS ---
Documented by User: Claudia Jonas NP 10/29/23 14:17 HPI - Anesthesia Eval Consult details Narrative: 58yo M for Left Hernia Lap Inguinal Reducible with Mesh TBI - [facility] Active Problems Active Problems: All Active Problems Hernia (Acute) Hemorrhoid (Acute) Left inguinal hernia (Acute) Right groin mass (Acute) Tubular adenoma (Acute) Past Medical History Medical History (Updated 09/08/23 @ 09:40 by Westley Tony MD) Resides in nursing home facility Left inguinal hernia Right groin mass Tubular adenoma Personal history of COVID-19 Presbyopia Dysphagia Zygomatic fracture, left side, sequela Zygomatic fracture, right side, sequela Opioid abuse Insomnia Constipation Traumatic subdural hematoma with loss of consciousness BPH (benign prostatic hyperplasia) Hypothyroidism (acquired) Schizophrenia Diffuse traumatic brain injury Family History Family history of problems with anesthesia: No Surgical History Surgical History (Updated 10/29/23 @ 12:16 by Teagan Hubbard RN) Hx of colonoscopy History of Problems with Anesthesia: Yes Social History Social History (Updated 10/29/23 @ 12:45 by Teagan Hubbard RN) Household Members: Other Household Members Other:: [facility] One resident Housing Other:: as above noted Alcohol intake: current Alcohol intake frequency: former alcohol drinker Patient Tobacco Use Status: Current everyday Tobacco user Tobacco use type: Cigarette Cigarette Packs Per Day: 0.5 Cigarettes Per Day: 4 Are you DNR?: No Advance Directives: Yes (conservatorship documentation from [facility]) Advance Directives Information Provided: Yes Advance Directives on File: Yes Advance Directives Date on File: 10/29/23 Meds Allergies Allergy/AdvReac Type Severity Reaction Status Date / Time No Known Allergies Allergy Verified 09/08/23 09:29 Home Medications ?Medication ?Instructions ?Recorded ?Confirmed ?Last Taken ?Type acetaminophen 325 mg tablet 325 mg PO QID PRN Pain 03/09/23 10/29/23 Unknown History benztropine 1 mg tablet 1 mg PO BEDTIME 03/09/23 10/29/23 Unknown History clonazepam 0.5 mg tablet 0.5 mg PO BID 03/09/23 10/29/23 Unknown History clozapine 25 mg tablet 75 mg PO BEDTIME 03/09/23 10/29/23 Unknown History ibuprofen 600 mg tablet 600 mg PO Q6H PRN Back Pain 03/09/23 10/29/23 Unknown History lactulose 10 gram/15 mL oral 30 ml PO BID 03/09/23 10/29/23 Unknown History solution propranolol 20 mg tablet 20 mg PO DAILY 03/09/23 10/29/23 Unknown History divalproex 250 mg tablet,extended 250 mg PO DAILY 06/14/23 10/29/23 Unknown History release 24 hr divalproex 500 mg tablet,extended 500 mg PO BEDTIME 06/14/23 10/29/23 Unknown History release 24 hr docusate sodium 100 mg capsule 100 mg PO DAILY 06/14/23 10/29/23 Unknown History guaifenesin 200 mg/5 mL oral liquid 400 mg PO Q4H PRN Congestion 06/14/23 10/29/23 Unknown History levothyroxine 50 mcg tablet 50 mcg PO DAILY 06/14/23 10/29/23 Unknown History lithium carbonate 300 mg tablet 300 mg PO BID 06/14/23 10/29/23 Unknown History polyethylene glycol 3350 17 238 g PO ONCE 06/14/23 10/29/23 Unknown History gram/dose oral powder (Miralax) sennosides 8.6 mg tablet (senna) 8.6 mg PO DAILY PRN Constipation 06/14/23 10/29/23 Unknown History sodium phosphates 19 gram-7 118 ml AL DAILY PRN Constipation 06/14/23 10/29/23 Unknown History gram/118 mL enema (Fleet Enema) tamsulosin 0.4 mg capsule 0.4 mg PO BEDTIME 06/14/23 10/29/23 Unknown History Exam Height,Weight and Vital Signs: Height 5 ft 11 in Weight 97.069 kg Assessment and Plan Assessment Anesthesia Assessment: Chart Reviewed Final Anesthetic Review Family History of Problems with Anesthesia: No History of Problems with Anesthesia: Yes Documented by User: Joana Parnell DO 11/02/23 07:33 [facility] Past Medical History Medical History (Updated 09/08/23 @ 09:40 by Westley Tony MD) Resides in nursing home facility Left inguinal hernia Right groin mass Tubular adenoma Personal history of COVID-19 Presbyopia Dysphagia Zygomatic fracture, left side, sequela Zygomatic fracture, right side, sequela Opioid abuse Insomnia Constipation Traumatic subdural hematoma with loss of consciousness BPH (benign prostatic hyperplasia) Hypothyroidism (acquired) Schizophrenia Diffuse traumatic brain injury Family History Family history of problems with anesthesia: No Surgical History Surgical History (Updated 10/29/23 @ 12:16 by Teagan Hubbard RN) Hx of colonoscopy History of Problems with Anesthesia: No Social History Social History (Updated 10/29/23 @ 12:45 by Teagan Hubbard RN) Household Members: Other Household Members Other:: [facility] One resident Housing Other:: as above noted Alcohol intake: current Alcohol intake frequency: former alcohol drinker Patient Tobacco Use Status: Current everyday Tobacco user Tobacco use type: Cigarette Cigarette Packs Per Day: 0.5 Cigarettes Per Day: 4 Are you DNR?: No Advance Directives: Yes (conservatorship documentation from [facility]) Advance Directives Information Provided: Yes Advance Directives on File: Yes Advance Directives Date on File: 10/29/23 Meds Allergies Allergy/AdvReac Type Severity Reaction Status Date / Time No Known Allergies Allergy Verified 09/08/23 09:29 Home Medications ?Medication ?Instructions ?Recorded ?Confirmed ?Last Taken ?Type acetaminophen 325 mg tablet 325 mg PO QID PRN Pain 03/09/23 10/29/23 Unknown History benztropine 1 mg tablet 1 mg PO BEDTIME 03/09/23 10/29/23 Unknown History clonazepam 0.5 mg tablet 0.5 mg PO BID 03/09/23 10/29/23 Unknown History clozapine 25 mg tablet 75 mg PO BEDTIME 03/09/23 10/29/23 Unknown History ibuprofen 600 mg tablet 600 mg PO Q6H PRN Back Pain 03/09/23 10/29/23 Unknown History lactulose 10 gram/15 mL oral 30 ml PO BID 03/09/23 10/29/23 Unknown History solution propranolol 20 mg tablet 20 mg PO DAILY 03/09/23 10/29/23 Unknown History divalproex 250 mg tablet,extended 250 mg PO DAILY 06/14/23 10/29/23 Unknown History release 24 hr divalproex 500 mg tablet,extended 500 mg PO BEDTIME 06/14/23 10/29/23 Unknown History release 24 hr docusate sodium 100 mg capsule 100 mg PO DAILY 06/14/23 10/29/23 Unknown History guaifenesin 200 mg/5 mL oral liquid 400 mg PO Q4H PRN Congestion 06/14/23 10/29/23 Unknown History levothyroxine 50 mcg tablet 50 mcg PO DAILY 06/14/23 10/29/23 Unknown History lithium carbonate 300 mg tablet 300 mg PO BID 06/14/23 10/29/23 Unknown History polyethylene glycol 3350 17 238 g PO ONCE 06/14/23 10/29/23 Unknown History gram/dose oral powder (Miralax) sennosides 8.6 mg tablet (senna) 8.6 mg PO DAILY PRN Constipation 06/14/23 10/29/23 Unknown History sodium phosphates 19 gram-7 118 ml AL DAILY PRN Constipation 06/14/23 10/29/23 Unknown History gram/118 mL enema (Fleet Enema) tamsulosin 0.4 mg capsule 0.4 mg PO BEDTIME 06/14/23 10/29/23 Unknown History Exam Exam Date and Time: November 02, 2023 0720 Height,Weight and Vital Signs: Height 5 ft 11 in Weight 97.069 kg Height 5 ft 11 in Weight 95.935 kg Vital Signs Temperature 97.7 F 11/02/23 06:25 Pulse Rate 77 11/02/23 06:25 Respiratory Rate 16 11/02/23 06:25 Blood Pressure 113/78 11/02/23 06:25 Pulse Oximetry 94 11/02/23 06:25 Oxygen Delivery Method Room Air 11/02/23 06:25 Temperature 97.7 F 11/02/23 06:25 Pulse Rate 77 11/02/23 06:25 Respiratory Rate 16 11/02/23 06:25 Blood Pressure 113/78 11/02/23 06:25 Pulse Oximetry 94 11/02/23 06:25 Oxygen Delivery Method Room Air 11/02/23 06:25 Airway Mallampati Class: II (small mouth opening) TM Dist: >3cm Denture: Upper and Lower Heart: S1S2 Lungs: CTAB Assessment and Plan Assessment Anesthesia Assessment: Anesthesia Plan Discussed and Chart Reviewed Final Anesthetic Review Family History of Problems with Anesthesia: No History of Problems with Anesthesia: No NPO: Yes ASA Class: III Final Preanesthetic Review: No Changes in Pt Med Stat, Meds/Allgs Chart Reviewed, Consent Obtained/Reviewed and Anes Risks/Benef Reviewed Patient Risk: Low Procedure Risk: Low Anesthetic Plan Anesthetic Plan: GA and Agree w/ Assess. and Plan Disposition: Standard PACU
--- NOTE | 2023-11-02 07:38 | MHC.SHP ---
Pre-Procedural Eval Section A - 24 Hr Update-Section A only Date of Service: 11/02/23 Section B - Complete if H&P > 30 days Chief Complaint: Unilateral inguinal hernia, without obstruction or Details of Present Illness: LIH reducible Relevant Family History (Specify if Yes): No Relevant Social History: None Present Medications: see Short Stay Collaborative assessment Medical History: Significant History (TBI, schzophreniam, high BMI) History of Previous Operations: Relevant previous surgery/procedure and date(s) Allergies: Allergies Allergy/AdvReac Type Severity Reaction Status Date / Time No Known Allergies Allergy Verified 09/08/23 09:29 Review of Systems Sugical H&P ROS: Negative: Constitution, Cardiovascular, Respiratory, Psychiatric, Hem-Onc, Allergic/Immunologic, Gastrointestinal, Genitourinary, Musculoskeletal, Integumentary, Endocrine and Eyes/Ears/Nose/Throat and Yes, Specify: Neurological (cognitive deficit) Exam Surgical H&P Exam: Normal: HEENT, Normal: Heart, Normal: Lungs, Normal: Extremities, Normal: Skin and Normal: Neurological and Significant Findings: Abdomen (LIH) Plan Diagnosis/Plan: Unchanged I have reviewed the history and physical and performed a pertinent physical examination on my patient. No changes have occurred unless specified. Time Spent With Patient Time: Total time managing care of this patient today ____ minutes.
--- NOTE | 2023-11-02 08:33 | P.OP_ITS ---
Operative Note Operative Note Date of Service: 11/02/23 Narrative: Preop diagnosis: Chronically incarcerated partially reducible left inguinal hernia Postop diagnosis: The same, with sigmoid colon incarcerated in the hernia Procedure: Repair of a chronically incarcerated left inguinal hernia with mesh, reduction of incarcerated sigmoid colon with extensive lysis of adhesions Surgeon: Westley Tony MD personnel security assistant: SOCORRO Corey The patient is a 58-year-old male with traumatic brain injury and schizophrenia, here today for repair of a chronically incarcerated left inguinal hernia. This is only partially reducible. This involves loops of sigmoid colon on the CT scan. Consent was given by his conservator immigration attorney Sandoval Kumar The patient was brought to the operating room and placed supine under general anesthesia via LMA. The left groin was prepped and draped in the usual sterile fashion. A surgical time-out was done. The patient received cefazolin 2 g IV preoperatively . The planned line of incision was infiltrated with lidocaine 1%. I made a gen erous incision on the left inguinal hernia along an imaginary line from anterior superior spine to the pubic ramus using blade 15. This carried down with electrocautery through the full-thickness of the skin subcutaneous fat until I was able to visualize the external oblique aponeurosis and the external ring. The hernia was visualized. I opened up the external oblique aponeurosis using electrocautery to expose the entire ring. Hemostats were applied on the divided edges of the aponeurosis. There was note of a large hernia containing a loop of sigmoid colon. I had to do extensive lysis of adhesions to separate this from the sac. This part of the procedure took some time until eventually is able to do this entire loop of sigmoid through the internal ring. I was able to identify the vas deferens and the accompanying vessels. A Lo drain was placed around the spermatic cord for retraction. I had to do more lysis of adhesions to separate the cord contents from the sigmoid colon. The testicle was also noted within the canal and I was able to pushes down back into the scrotum I then reinforced the large internal ring with an extra-large plug. The plug was secured with Prolene 2 sutures using the inner leaves of the plug to the shelving edge of the inguinal meant laterally, then they earlier oblique superiorly and medially. I reinforced the floor of the canal with a keyhole mesh. The tails of the mesh were passed around the cord at the level of the internal ring and were secured together with Prolene 2 sutures. The mesh was laid flat on the floor. This was secured with Prolene 2 sutures to the shelving edge of the inguinal meant laterally, the internal oblique superiorly medially as well as the pubic ramus inferomedially We observed for hemostasis. Once hemostasis was confirmed, we irrigated copiously I closed the external oblique aponeurosis with running Polysorb 2-0 stitch to re-create the external ring. The subcutaneous layer was reapposed with Polysorb 3-0 sutures. The skin was closed with a running Polysorb 4-0 subcuticular stitch. The area was infiltrated with Marcaine 0.5% for postop analgesia Dressings were applied and the procedure was completed The patient tolerated procedure well. There were no immediate complications. Initial and final counts of sponges and instruments were correct. Estimated blood loss was about 25 cc The patient was extubated without difficulty and transferred to the recovery room with stable vital signs.
[2023-11-02] MEDS: fentaNYL citrate/PF 100 MCG/2 ML VIAL 50 MCG IVPUSH (09:07)
[2023-11-02] MEDS: oxyCODONE HCl Immed Release 5 MG TABLET PO (09:17)
== END 2023-11-02 10:36 | disposition home or self-care (01) ==
PROVIDERS: PCP Hospitalist; Visit Provider Surgery
PROC: (CPT 49507; principal; 2023-11-02 07:30)
DX: K40.30 Unilateral inguinal hernia, with obstruction, without gangrene, not specified as recurrent (principal); K66.0 Peritoneal adhesions (postprocedural) (postinfection); F20.9 Schizophrenia, unspecified; Z87.820 Personal history of traumatic brain injury; G47.00 Insomnia, unspecified; R13.10 Dysphagia, unspecified; H52.4 Presbyopia; N40.0 Benign prostatic hyperplasia without lower urinary tract symptoms; Z79.1 Long term (current) use of non-steroidal anti-inflammatories (NSAID); Z79.899 Other long term (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; F11.10 Opioid abuse, uncomplicated; F17.210 Nicotine dependence, cigarettes, uncomplicated
CPT/HCPCS: 49507; 49999; C1781; J0131; J0690; J1100; J1885; J2405; J2704; J2795; J3010

== ENCOUNTER → 2023-11-02 05:56 | Outpatient (BNV) | payer OTHER, SELFPAY | PROVIDERS: PCP Hospitalist; Visit Provider Surgery | DX: K40.30 Unilateral inguinal hernia, with obstruction, without gangrene, not specified as recurrent (principal) | CPT/HCPCS: 49507 ==

== ENCOUNTER 2023-11-15 10:15 | Outpatient (AMB) | payer OTHER, SELFPAY ==
--- NOTE | 2023-11-15 10:19 | MHC.OFFVIS ---
Vital Signs 11/15/23 10:28 Height 5 ft 11 in Weight 213 lb BMI 29.7 BP 138/74 Blood Pressure Location Lt brachial Position Sitting Pulse 74 Intake Visit Reasons: S/P LIH w/mesh Intake Note: Patient is seen in office for post op assessment post left inguinal hernia repair. Pt c/o: admits to sore and tender in the area Scaffold Erector Required: No Accompanied by: Other Relationship Allergies No Known Allergies Allergy (Verified 11/15/23 10:26) HPI HPI S/P LIH w/mesh: Details: He underwent repair and reduction of a chronically incarcerated left inguinal hernia containing a loop of sigmoid colon, with mesh last 11/02/2023. He tolerated the procedure well. He currently denies significant complaints. He has a senior living resident. [facility] Medical History Resides in halfway facility Left inguinal hernia Right groin mass Tubular adenoma Personal history of COVID-19 Presbyopia Dysphagia Zygomatic fracture, left side, sequela Zygomatic fracture, right side, sequela Opioid abuse Insomnia Constipation Traumatic subdural hematoma with loss of consciousness BPH (benign prostatic hyperplasia) Hypothyroidism (acquired) Schizophrenia Diffuse traumatic brain injury Surgical History (Updated 11/15/23 @ 10:28 by DAYTON Trotter) Hx of left inguinal hernia repair (11/02/23) Hx of colonoscopy Social History Household Members: Other Household Members Other:: [facility] Housing Other:: as above noted Alcohol intake: current Alcohol intake frequency: former alcohol drinker Comment: counts correct Patient Tobacco Use Status: Current everyday Tobacco user Tobacco use type: Cigarette Cigarette Packs Per Day: 0.5 Cigarettes Per Day: 4 Advance Directives Date on File: 10/29/23 Review of Systems Const Denies chills and Denies fever(s) Card Denies chest pain GI Denies abdominal pain Physical Exam Vital Signs: Last Vital Signs Pulse 74 11/15/23 10:28 BP 138/74 11/15/23 10:28 BMI result Body Mass Index 29.7 Const General: comfortable and no acute distress Resp Effort & Inspection: normal respiratory effort Cardio Rate: regular rate GI Other: Left inguinal hernia repair site is well healed, not infected, repair intact Palpation (GI): Soft to palpation, not firm and no guarding Assessment & Plan Assessment & Plan (1) Left inguinal hernia: Code(s): K40.90 - Unilateral inguinal hernia, without obstruction or gangrene, not specified as recurrent Category: Medical Plan: Status post repair with mesh. He is doing well. The incision appears well healed and the repair site is intact. I advised him to avoid lifting anything more than 15 lb for another month. He can otherwise follow up on a p.r.n. basis. Coding Level of Care Code Global (53564) Diagnoses Left inguinal hernia K40.90
[2023-11-15 10:28] VITALS: BP 138/74; PULSE 74; BMI 29.7
== END 2023-11-15 10:37 | disposition home or self-care (01) ==
PROVIDERS: PCP Hospitalist; Visit Provider Surgery
DX: K40.90 Unilateral inguinal hernia, without obstruction or gangrene, not specified as recurrent (principal)
CPT/HCPCS: 99024

== ENCOUNTER → 2023-11-15 10:15 | Outpatient (BNVA) | payer OTHER, SELFPAY | PROVIDERS: PCP Hospitalist; Visit Provider Surgery | DX: Z09 Encounter for follow-up examination after completed treatment for conditions other than malignant neoplasm (principal); Z87.19 Personal history of other diseases of the digestive system | CPT/HCPCS: 99212 ==

== ENCOUNTER 2023-12-15 09:02 | Outpatient (AMB) | payer OTHER, SELFPAY ==
--- NOTE | 2023-12-15 09:02 | A.OFFVIS_ITS ---
Vital Signs 12/15/23 09:03 Height 5 ft 11 in Weight 205 lb 6 oz BMI 28.6 Intake Visit Reasons: enlarged left testical Intake Note: This patient presents for a follow-up assessment for swelling of the left testicle, Hx left inguinal hernia repair 11/02/2023. Patient c/o; reports swelling left testicle. Orthodontic Assistant Required: No Accompanied by: WASTE BALER Allergies No Known Allergies Allergy (Verified 12/15/23 09:09) HPI HPI enlarged left testical: Details: He had undergone preop very large left inguinal hernia with reduction of chronically incarcerated sigmoid colon last 11/02/2023. He tolerated the procedure well. I had seen him for postop visit last November 14 and the repair site appeared to be well healed and intact. He has had no new complaints. He says he feels well overall. [facility], [facility] Medical History Resides in alf facility Left inguinal hernia Right groin mass Tubular adenoma Personal history of COVID-19 Presbyopia Dysphagia Zygomatic fracture, left side, sequela Zygomatic fracture, right side, sequela Opioid abuse Insomnia Constipation Traumatic subdural hematoma with loss of consciousness BPH (benign prostatic hyperplasia) Hypothyroidism (acquired) Schizophrenia Diffuse traumatic brain injury Surgical History Hx of left inguinal hernia repair (11/02/23) Hx of colonoscopy Social History Household Members: Other Household Members Other:: [facility] Housing Other:: as above noted Alcohol intake: current Alcohol intake frequency: former alcohol drinker Comment: counts correct Patient Tobacco Use Status: Current everyday Tobacco user Tobacco use type: Cigarette Cigarette Packs Per Day: 0.5 Cigarettes Per Day: 4 Advance Directives Date on File: 10/29/23 Review of Systems Const Denies chills and Denies fever(s) Resp Denies cough GI Denies abdominal pain Physical Exam Vital Signs: BMI result Body Mass Index 29.8 Const General: comfortable and no acute distress GI Other: Left inguinal hernia repair site is well healed, not infected, repair site intact, no scrotal mass Assessment & Plan Assessment & Plan (1) Left inguinal hernia: Code(s): K40.90 - Unilateral inguinal hernia, without obstruction or gangrene, not specified as recurrent Category: Medical Plan: Status post repair with mesh. He is doing very well. The repair site is int act. The incisions well healed. He can return to regular level of activities. He can follow up on a p.r.n. basis. Coding Level of Care Code Global (76401) Diagnoses Left inguinal hernia K40.90
[2023-12-15 09:03] VITALS: BMI 28.6
== END 2023-12-15 09:13 | disposition home or self-care (01) ==
PROVIDERS: PCP Hospitalist; Referring Provider Hospitalist; Visit Provider Surgery
DX: K40.90 Unilateral inguinal hernia, without obstruction or gangrene, not specified as recurrent (principal)
CPT/HCPCS: 99024

== ENCOUNTER → 2023-12-15 09:02 | Outpatient (BNVA) | payer OTHER, SELFPAY | PROVIDERS: PCP Hospitalist; Referring Provider Hospitalist; Visit Provider Surgery | DX: Z09 Encounter for follow-up examination after completed treatment for conditions other than malignant neoplasm (principal); Z87.19 Personal history of other diseases of the digestive system | CPT/HCPCS: 99212 ==

== ENCOUNTER 2024-03-22 08:45 | Outpatient (AMB) | payer OTHER, SELFPAY ==
--- NOTE | 2024-03-22 08:48 | MHC.OFFVIS ---
Intake Visit Reasons: Facility req'd FUV. Intake Note: Raymond presents in office today for a scheduled FUV to discuss repeat colonoscopy CC; Raymond requires repeat colo due to polypectomy during last procedure. Prep was adequate (2 throughout). 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 Incomplete colonoscopy due to possible right inguinal hernia. Patient has appointment with Dr. Tony on July 14. Recommendation was made for patient to return for colorectal screening 6-12 months. Patient will need to have surgery done before going for colonoscopy. Recommendations send with staff to call our office after hernia repair when he feels better so we can discuss going for another colonoscopy to check right side of the colon. TODAY'S VISIT Patient presents in the office today to discuss prep. Patient is accompanied by staff from [facility]. Patient had hernia repair done by Dr. Tony back in October. Recently patient reports that he has been feeling well denies any issues. Last colonoscopy suboptimal prep, unable to visualize right side of the colon and recommendation was made for patient to return for colonoscopy again. We will schedule the colonoscopy today. Patient denies any issues with anesthesia in the past. No anticoagulation medication. No history of sleep apnea. Patient denies any cardiac or respiratory symptoms. Reports that he is moving his bowels better now that he is taking laxatives at nursing home ? [facility] Medical History Pain at surgical site Resides in long term facility Left inguinal hernia Right groin mass Tubular adenoma Personal history of COVID-19 Presbyopia Dysphagia Zygomatic fracture, left side, sequela Zygomatic fracture, right side, sequela Opioid abuse Insomnia Constipation Traumatic subdural hematoma with loss of consciousness BPH (benign prostatic hyperplasia) Hypothyroidism (acquired) Schizophrenia Diffuse traumatic brain injury Surgical History Hx of left inguinal hernia repair (11/02/23) Hx of colonoscopy Social History Household Members: Other Household Members Other:: [facility] Housing Other:: as above noted Alcohol intake: current Alcohol intake frequency: former alcohol drinker Comment: counts correct Patient Tobacco Use Status: Current everyday Tobacco user Tobacco use type: Cigarette Cigarette Packs Per Day: 0.5 Cigarettes Per Day: 4 Advance Directives Date on File: 10/29/23 Review of Systems Const Denies weight gain and Denies weight loss ENT Reports no additional complaints, Denies dysphagia and Denies odynophagia Card Reports no additional complaints Resp Reports no additional complaints GI Denies abdominal pain, Denies belching, Denies melena, Denies bloating, Denies change in bowel habits, Denies dysphagia, Denies excessive flatus, Denies dyspepsia, Denies heartburn, Denies diarrhea, Denies loose stools, Denies nausea, Denies odynophagia and Denies vomiting Reports no additional complaints Musc Reports no additional complaints Neuro Reports no additional complaints Psych Reports no additional complaints Endo Reports no additional complaints Physical Exam Const General: healthy appearing, no acute distress and well developed Nutritional Appearance: well nourished Orientation/consciousness: oriented to person Limitations: behavioral limitations Resp Effort & Inspection: normal respiratory effort, able to speak in complete sentences, no tracheal deviation and symmetric chest movement Auscultation: clear to auscultation bilaterally Cardio Rate: regular rate GI Inspection: Yes normal to inspection, No distended and Yes obesity Palpation (GI): Soft to palpation, not firm, nontender and No hepatosplenomegaly present Auscultation: normal bowel sounds General: Yes no CVA tenderness Back/Spine/Pelvis Back: no CVA tenderness Skin General skin exam: elasticity normal, turgor normal and dry skin Neuro General: oriented to person Psych Appearance: grossly normal Assessment & Plan Assessment & Plan (1) Hernia: Code(s): K46.9 - Unspecified abdominal hernia without obstruction or gangrene Category: Medical (2) Hemorrhoid: Code(s): K64.9 - Unspecified hemorrhoids Category: Medical Qualifiers: Hemorrhoid type: unspecified Qualified Code(s): K64.9 - Unspecified hemorrhoids (3) Tubular adenoma: Code(s): D36.9 - Benign neoplasm, unspecified site Category: Medical (4) Screen for colon cancer: Code(s): Z12.11 - Encounter for screening for malignant neoplasm of colon Plan What to expect before during and after procedure discussed with patient and staff. Staff will share this with nurses who take care of him on the unit. Patient had suboptimal prep last procedure, we will have him take Dulcolax tablets 1 week before procedure with 4 tablets day before procedure followed by split MiraLax prep. I will see patient after the procedure, sooner on as needed basis. Thank you for allowing me to participate in his care Medications: New bisacodyl (Dulcolax (bisacodyl)) Start taking 2 tablet every night 7 days before the procedure and 1 day before procedure take 4 tablets at noon time followed by MiraLax prep 10 mg (2 x 5 mg) PO BEDTIME 16 tabs 0RF Z12.11 - Encounter for screening for malignant neoplasm of colon polyethylene glycol 3350 (Miralax) As directed by gastroenterology department at [facility] 238 grams PO ONCE 238 grams 0RF Z12.11 - Encounter for screening for malignant neoplasm of colon Coding Level of Care Code Est Pt Level 3 (13384) Diagnoses Hernia K46.9 Hemorrhoids, unspecified hemorrhoid type K64.9 Hemorrhoid type: unspecified Tubular adenoma D36.9 Screen for colon cancer Z12.11 Time Spent (min) 25 Comment 15 minutes spent with patient and additional 10 minutes spent reviewing his records
== END 2024-03-22 10:31 | disposition home or self-care (01) ==
PROVIDERS: PCP Hospitalist; Visit Provider Nurse Practitioner Family
DX: K46.9 Unspecified abdominal hernia without obstruction or gangrene (principal); K64.9 Unspecified hemorrhoids; D36.9 Benign neoplasm, unspecified site; Z12.11 Encounter for screening for malignant neoplasm of colon
CPT/HCPCS: 99213

== ENCOUNTER → 2024-03-22 08:45 | Outpatient (BNVA) | payer OTHER, SELFPAY | PROVIDERS: PCP Hospitalist; Visit Provider Nurse Practitioner Family | DX: G89.18 Other acute postprocedural pain (principal); K46.9 Unspecified abdominal hernia without obstruction or gangrene; K64.9 Unspecified hemorrhoids; D36.9 Benign neoplasm, unspecified site | CPT/HCPCS: 99212 ==

== ENCOUNTER 2024-03-22 09:08 | Outpatient (AMB) | payer OTHER, SELFPAY ==
--- NOTE | 2024-03-22 09:10 | A.OFFVIS_ITS ---
Vital Signs 03/22/24 09:16 Height 5 ft 11 in Weight 205 lb 0.478 oz BMI 28.6 BP 130/74 Blood Pressure Location Lt brachial Position Sitting Pulse 104 H Intake Visit Reasons: pain in surgery site Intake Note: Patient is seen in office for follow up visit, pain in surgery site. 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: No Accompanied by: Other Relationship Allergies No Known Allergies Allergy (Verified 03/22/24 09:23) Medication List - Last Reconciled 03/22/24 by Westley Tony MD acetaminophen 325 mg PO QID PRN benztropine 1 mg PO BEDTIME bisacodyl (Dulcolax (bisacodyl)) 10 mg (2 x 5 mg) PO ONCE 1 day clonazepam 0.5 mg PO BID clozapine 100 mg PO DAILY clozapine 50 mg PO BEDTIME divalproex ER 500 mg PO BEDTIME docusate sodium 100 mg PO DAILY guaifenesin 400 mg PO Q4H PRN ibuprofen 600 mg PO Q6H PRN lactulose 30 mL PO BID levothyroxine 50 mcg PO DAILY lithium carbonate ER 450 mg PO DAILY metoprolol succinate ER 25 mg PO DAILY polyethylene glycol 3350 (Miralax) 238 grams PO ONCE propranolol 20 mg PO DAILY quetiapine ER 50 mg PO BEDTIME sennosides (senna) 8.6 mg PO DAILY PRN sodium phosphates 19-7 gram/118 mL (Fleet Enema) 118 mL [place] DAILY PRN tamsulosin 0.4 mg PO BEDTIME HPI HPI pain in surgery site: Details: He is here for reported pain on his inguinal hernia repair site. He had undergone left inguinal hernia repair with mesh last Oct, 2023. He says that he just needs pain medications for some pain on the hernia repair site. He currently denies any pain. He has good oral intake. He was supposed to see GI as well today so he has to see me for pain meds. [facility] Medical History (Updated 03/22/24 @ 09:23 by Westley Tony MD) Pain at surgical site Resides in long term facility Left inguinal hernia Right groin mass Tubular adenoma Personal history of COVID-19 Presbyopia Dysphagia Zygomatic fracture, left side, sequela Zygomatic fracture, right side, sequela Opioid abuse Insomnia Constipation Traumatic subdural hematoma with loss of consciousness BPH (benign prostatic hyperplasia) Hypothyroidism (acquired) Schizophrenia Diffuse traumatic brain injury Surgical History Hx of left inguinal hernia repair (11/02/23) Hx of colonoscopy Social History Household Members: Other Household Members Other:: [facility] Housing Other:: as above noted Alcohol intake: current Alcohol intake frequency: former alcohol drinker Comment: counts correct Patient Tobacco Use Status: Current everyday Tobacco user Tobacco use type: Cigarette Cigarette Packs Per Day: 0.5 Cigarettes Per Day: 4 Advance Directives Date on File: 10/29/23 Review of Systems Const Denies chills and Denies fever(s) Card Denies chest pain GI Denies vomiting Physical Exam Vital Signs: Last Vital Signs Pulse 104 H 03/22/24 09:16 BP 130/74 03/22/24 09:16 BMI result Body Mass Index 28.6 Const General: comfortable and no acute distress Resp Effort & Inspection: normal respiratory effort GI Other: Left inguinal hernia repair site intact, no tenderness at this time Palpation (GI): Soft to palpation, not firm, nontender and no guarding Assessment & Plan Assessment & Plan (1) Pain at surgical site: Code(s): G89.18 - Other acute postprocedural pain Category: Medical Plan: He describes occasional pain on the hernia repair site on the left groin. Exam does not reveal any mass. There was no evidence of any recurrence He says that he just needs some pain medications. I will refill his pain meds. He can follow up on a p.r.n. basis. Coding Level of Care Code Est Pt Level 2 (55794) Diagnoses Pain at surgical site G89.18
[2024-03-22 09:16] VITALS: BP 130/74; PULSE 104; BMI 28.6
== END 2024-03-22 09:29 | disposition home or self-care (01) ==
LOC: HO.HGS 09:08
PROVIDERS: PCP Hospitalist; Visit Provider Surgery
DX: G89.18 Other acute postprocedural pain (principal)
CPT/HCPCS: 99212

== ENCOUNTER → 2024-07-25 08:17 | Day surgery (SDC) | payer OTHER, SELFPAY ==
--- NOTE | 2024-07-24 13:40 | P.CONAN_ITS ---
HPI - Anesthesia Eval Consult details Narrative: 58yo M for Colonoscopy s/p Left Hernia Lap Inguinal Reducible with Mesh 10/2023 with GA-LMA 5 TBI - [facility] Active Problems Active Problems: All Active Problems Pain at surgical site (Acute) Hernia (Acute) Hemorrhoid (Acute) Left inguinal hernia (Acute) Right groin mass (Acute) Tubular adenoma (Acute) Past Medical History Medical History Pain at surgical site Resides in assisted facility Left inguinal hernia Right groin mass Tubular adenoma Personal history of COVID-19 Presbyopia Dysphagia Zygomatic fracture, left side, sequela Zygomatic fracture, right side, sequela Opioid abuse Insomnia Constipation Traumatic subdural hematoma with loss of consciousness BPH (benign prostatic hyperplasia) Hypothyroidism (acquired) Schizophrenia Diffuse traumatic brain injury Family History Family history of problems with anesthesia: No Surgical History Surgical History Hx of left inguinal hernia repair (11/02/23) Hx of colonoscopy History of Problems with Anesthesia: No Social History Social History Household Members: Other Household Members Other:: [facility] Housing Other:: as above noted Alcohol intake: current Alcohol intake frequency: former alcohol drinker Comment: counts correct Patient Tobacco Use Status: Current everyday Tobacco user Tobacco use type: Cigarette Cigarette Packs Per Day: 0.5 Cigarettes Per Day: 4 Advance Directives Date on File: 10/29/23 Meds Allergies Allergy/AdvReac Type Severity Reaction Status Date / Time No Known Allergies Allergy Verified 03/22/24 09:44 Home Medications ?Medication ?Instructions ?Recorded ?Confirmed ?Last Taken ?Type acetaminophen 325 mg tablet 325 mg PO QID PRN Pain 03/09/23 10/29/23 Unknown History benztropine 1 mg tablet 1 mg PO BEDTIME 03/09/23 10/29/23 Unknown History clonazepam 0.5 mg tablet 0.5 mg PO BID 03/09/23 03/22/24 Unknown History ibuprofen 600 mg tablet 600 mg PO Q6H PRN Back Pain 03/09/23 03/22/24 Unknown History lactulose 10 gram/15 mL oral 30 ml PO BID 03/09/23 03/22/24 Unknown History solution propranolol 20 mg tablet 20 mg PO DAILY 03/09/23 10/29/23 Unknown History divalproex 500 mg tablet,extended 500 mg PO BEDTIME 06/14/23 03/22/24 Unknown History release 24 hr docusate sodium 100 mg capsule 100 mg PO DAILY 06/14/23 03/22/24 Unknown History guaifenesin 200 mg/5 mL oral liquid 400 mg PO Q4H PRN Congestion 06/14/23 03/22/24 Unknown History levothyroxine 50 mcg tablet 50 mcg PO DAILY 06/14/23 10/29/23 Unknown History polyethylene glycol 3350 17 238 g PO ONCE 06/14/23 03/22/24 Unknown History gram/dose oral powder (Miralax) sennosides 8.6 mg tablet (senna) 8.6 mg PO DAILY PRN Constipation 06/14/23 03/22/24 Unknown History sodium phosphates 19 gram-7 118 ml MD DAILY PRN Constipation 06/14/23 03/22/24 Unknown History gram/118 mL enema (Fleet Enema) tamsulosin 0.4 mg capsule 0.4 mg PO BEDTIME 06/14/23 03/22/24 Unknown History metoprolol succinate 25 mg 25 mg PO DAILY 11/15/23 03/22/24 Unknown History tablet,extended release 24 hr clozapine 100 mg tablet 100 mg PO DAILY 03/22/24 03/22/24 Unknown History clozapine 50 mg tablet 50 mg PO BEDTIME 03/22/24 Unknown History lithium carbonate 450 mg 450 mg PO DAILY 03/22/24 Unknown History tablet,extended release quetiapine 50 mg tablet,extended 50 mg PO BEDTIME 03/22/24 Unknown History release 24 hr Assessment and Plan Assessment Anesthesia Assessment: Chart Reviewed Final Anesthetic Review Family History of Problems with Anesthesia: No History of Problems with Anesthesia: No
--- OUTSIDE RECORDS SUMMARY | 2024-07-25 08:40 | XMS_ITS | Clinical Summary ---
Author Organization [facility] Address [address] [place] [id number] Care Team Providers Care Extrusion Bender Name Role Phone Ronald Webster MD Primary Care Provider [phone]- [phone] Allergies No known active allergies Medications Medication Sig Dispensed Refills Start Date End Date Status risperiDONE (RisperDAL) 4 MG tablet Take 3 mg by mouth 2 (two) times a day. 0 05/06/2017 Active propranolol (INDERAL) 20 MG tablet Take 20 mg by mouth 2 (two) times a day. 0 12/05/2020 Active divalproex (DEPAKOTE) 500 MG 24 hr tablet Take 750 mg by mouth 2 (two) times a day. 0 12/05/2020 Active benztropine (COGENTIN) 0.5 MG tablet Take 0.5 mg by mouth 2 (two) times a day. 0 Active polyethylene glycol (MIRALAX) 17 g packet Take 17 g by mouth daily. 14 each 0 07/09/2021 Active docusate sodium (COLACE) 50 MG/5ML liquid Take 10 mL (100 mg total) by mouth daily. 100 mL 0 07/09/2021 Active benztropine (COGENTIN) 1 MG tablet Take 1 tablet (1 mg total) by mouth every night at bedtime. 30 tablet 0 07/08/2021 Active divalproex (DEPAKOTE) [address] tablet Take 1 tablet (500 mg total) by mouth 3 (three) times a day. 60 tablet 0 07/08/2021 Active propranolol (INDERAL) 20 MG tablet Take 1 tablet (20 mg total) by mouth daily. 90 tablet 0 07/09/2021 Active QUEtiapine (SEROquel XR) 300 MG 24 hr tablet Take 1 tablet (300 mg total) by mouth every evening. 30 tablet 0 07/08/2021 Active ipratropium-albutero l (DUO-NEB) 0.5-2.5 mg/mL nebulizer Inhale 3 mL into the lungs every 6 (six) hours as needed. 360 mL 0 07/08/2021 Active clonazePAM (KlonoPIN) 0.5 MG tablet Take 1 tablet (0.5 mg total) by mouth 2 (two) times a day. 60 tablet 0 07/08/2021 Active tamsulosin (FLOMAX) 0.4 MG CAPS Take 1 capsule (0.4 mg total) by mouth daily. 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 07/27/2016 Noncompliance with medication regimen 07/27/2016 Paranoid delusion 01/06/2016 Schizoaffective disorder, bipolar type 6 Noncompliance with medication regimen 01/06/2016 Resolved Problems Problem Noted Date Diagnosed Date Resolved Date Hypokalemia 07/27/2016 07/29/2016 Immunizations Name Administration Dates Next Due Adacel (Tdap) 04/12/2021 Covid-19 (Pfizer) Dilution Required 07/14/2021 Social History Tobacco Use Types Packs/Day Years Used Date Smoking Tobacco: Former Cigarettes 1 Q uit: 07/29/2013 Smokeless Tobacco: Former Tobacco Cessation:Counseling Given: Yes Alcohol Use Standard Drinks/Week Comments No 0 (1 standard drink = 0.6 oz pur e alcohol) Sex and Gender Information Value Date Recorded Sex Assigned at Male 05/15/2019 8:58 PM EST Gender Identity Not on file Sexual Orientation Not on file Job Start Date Occupation Industry Not on file Not on file Not on file Last Filed Vital Signs Vital Sign Reading Time Taken Comments Blood Pressure 113/82 08/12/2021 10:31 AM EST Pulse 79 08/12/2021 10:15 AM EST Temperature 37 ??C (98.6 ??F) 03/17/2022 12:18 PM EDT Respiratory Rate 17 08/12/2021 10:15 AM EST Oxygen Saturation 96% 08/12/2021 10:15 AM EST Inhaled Oxygen Concentration - - Weight 84.4 kg (186 lb) 2021 5:00 AM EST Height 177.8 cm (5' 10 ) 04/12/2021 6:00 PM EDT Body Mass Index 26.69 04/12/2021 6:00 PM EDT Plan of Treatment Health Maintenance Due Date Last Done Comments Hepatitis B Vaccines (1 of 3 - 3-dose series) 1965 Hepatitis C Screening 1965 Depression Screening 1977 BMI Counseling 1983 Preventative Health Evaluation 1983 Colon Cancer Screening (Colonoscopy) 2010 Shingrix-Zoster Vaccine (1 of 2) 2015 COVID-19 Vaccine (2 - 2023-2 5 season) 2024 07/14/2021 Influenza Vaccine (#1) 2024 DTap / Tdap / Td (2 - Td or Tdap) 04/12/2031 021 Pneumococcal Vaccine Aged Out No long er eligible based on patient's age to complete this topic RSV Ped < 20 months Aged Out No longe r eligible based on patient's age to complete this topic Advance Directives For more information, please contact: [phone] Documents on File Type Date Recorded Patient Communication Instructor Expl anation Advance Directive and Living Will 08/10/2016 Advance Directive and Living Will 01/15/2016 Latest Code Status on File Code Status Date Activated Date Inactivated Comments Full Code 04/12/2021 5:33 PM 08/12/2021 5:38 PM This code status was ascertained in the following way: . Code Status History Code Status Date Activated Date Inactivated Comments Full Code 07/27/2016 10:55 PM 2016 10:45 PM This code status was ascertained in the following way: per unit protocol. Full Code 01/06/2016 10:11 PM 01/13/2016 9:51 PM This code status was ascertained in the following way: per unit protocol. Care Teams Extrusion Bender Relationship Specialty Start Date End Date Ronald Webster MD [address] [facility] [address] [facility] [place] [address] PCP - General Paleologist 04/12/21
--- OUTSIDE RECORDS SUMMARY | 2024-07-25 08:40 | XMS_ITS | Encounter Summary ---
Author Organization [facility] Address [address] [place] [address] Care Team Providers Care Tooling Specialist Name Role Phone Ronald Webster MD Primary Care Provider +1- [phone] Encounter Details Date Type Department Care Team (Late st Contact Info) Description 06/08/2024 Lab Requisition [facility] - Main Lab [address] [place] [address] Abisai Vega MD [address] [place] [address] [address] [place] Other rodent exterminator (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 Social History Tobacco Use Types Packs/Day Years Used Date Smoking Tobacco: Former Cigarettes Q uit: 07/29/2013 Smokeless Tobacco: Former Alcohol Use Standard Drinks/Week Comments No 0 (1 standard drink = 0.6 oz pur e alcohol) Sex and Gender Information Value Date Recorded Sex Assigned at Not on file Gender Identity Not on file Sexual Orientation Not on file documented as of this encounter Plan of Treatment Not on file documented as of this encounter Procedures Procedure Name Priority Date/Time Associated Diagnosis Comments CBC WITH AUTO DIFFERENTIAL Routine 06/08/2024 5:07 AM EST Other rodent exterminator (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 CBC AND DIFFERENTIAL Routine 06/08/2024 5:07 AM EST Other [facility] (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 documented in this encounter Results * (ABNORMAL) CBC auto differential (06/08/2024 5:07 AM EST) WBC 6.6 4.8 - 10.8 K/[facility] LAB HEMETOLOGY METHOD 06/08/2024 6:33 AM EST [facility] RBC 4.60 4.50 - 5.50 M/[facility] LAB HEMETOLOGY METHOD 06/08/2024 6:33 AM [facility] Hemoglobin 14.0 13.5 - 17.5 g/dL LAB HEMETOLOGY METHOD 06/08/2024 6:33 AM [facility] Hematocrit 42.0 42.0 - 54.0 % LAB HEMETOLOGY METHOD 06/08/2024 6:33 AM [facility] MCV 92.3 79.0 - 98.0 FL LAB HEMETOLOGY METHOD 06/08/2024 6:33 AM [facility] MCH 30.8 27.0 - 32.0 pcg LAB HEMETOLOGY METHOD 06/08/2024 6:33 AM [facility] MCHC 33.3 32.0 - 37.0 g/dL LAB HEMETOLOGY METHOD 06/08/2024 6:33 AM [facility] RDW 12.7 11.0 - 15.0 % LAB HEMETOLOGY METHOD 06/08/2024 6:33 AM [facility] Platelets 255 130 - 400 K/mcL LAB HEMETOLOGY METHOD 06/08/2024 6:33 AM [facility] MPV 9.7 7.0 - 11.0 FL LAB HEMETOLOGY METHOD 06/08/2024 6:33 AM [facility] NRBC 0.0 <1.0 % LAB HEMETOLOGY METHOD 06/08/2024 6:33 AM [facility] NRBC Absolute 0.00 <0.10 K/mcL LAB HEMETOLOGY METHOD 06/08/2024 6:33 AM [facility] Neutrophils Relative 56.4 % LAB HEMETOLOGY METHOD 06/08/2024 6:33 AM [facility] Lymphocytes Relative 25.9 % LAB HEMETOLOGY METHOD 06/08/2024 6:33 AM [facility] Monocytes Relative 12.1 % LAB HEMETOLOGY METHOD 06/08/2024 6:33 AM EST [facility] Eosinophils Relative 4.2 % LAB HEMETOLOGY METHOD 06/08/2024 6:33 AM [facility] Basophils Relative 0.8 % LAB HEMETOLOGY METHOD 06/08/2024 6:33 AM [facility] Immature Granulocytes Relative 0.6 % LAB HEMETOLOGY METHOD 06/08/2024 6:33 AM EST [facility] Neutrophils Absolute 3.71 1.50 - 7.00 K/mcL LAB HEMETOLOGY METHOD 06/08/2024 6:33 AM [facility] Lymphocytes Absolute 1.71 1.00 - 5.00 K/mcL LAB HEMETOLOGY METHOD 06/08/2024 6:33 AM [facility] Monocytes Absolute 0.80 0.20 - 1.00 K/mcL LAB HEMETOLOGY METHOD 06/08/2024 6:33 AM EST [facility] Eosinophils Absolute 0.28 0.00 - 0.50 K/mcL LAB HEMETOLOGY METHOD 06/08/2024 6:33 AM EST [facility] Basophils Absolute 0.05 0.00 - 0.20 K/mcL LAB HEMETOLOGY METHOD 06/08/2024 6:33 AM [facility] Immature Granulocytes Absolute 0.04(H) 0.00 - 0.03 K/mcL LAB HEMETOLOGY METHOD 06/08/2024 6:33 AM [facility] Blood Venous blood specimen / Unknown 06/08/2024 5:07 AM EST 06/08/2024 5:47 AM EST Abisai Vega MD LAB BLOOD ORDERABLES [facility] [address] [place] [address], documented in this encounter Visit Diagnoses Diagnosis Other [facility] (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 documented in this encounter Care Teams Tooling Specialist Relationship Specialty Start Date End Date Ronald Webster MD [address] [place] [address] PCP - General Social Director 04/12/21 documented as of this encounter
--- OUTSIDE RECORDS SUMMARY | 2024-07-25 08:40 | XMS_ITS | Encounter Summary ---
Author Organization [facility] Address [address] [place] [address] Care Team Providers Care Delivery Coordinator Name Role Phone Ronald Webster MD Primary Care Provider [phone]- [phone] Encounter Details Date Type Department Care Team (Late st Contact Info) Description 06/15/2024 Lab Requisition [facility] - Main Lab [address] [place] [address] Abisai Vega MD [address] [place] [address] [address] [place] Other rn long term care (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 Social History Tobacco Use [...] Diagnosis Comments CBC WITH AUTO DIFFERENTIAL Routine 06/15/2024 7:05 AM EST Other rn long term care (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 CBC AND DIFFERENTIAL Routine 06/15/2024 7:05 AM EST Other senior care (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 documented in this encounter Results * (ABNORMAL) CBC auto differential (06/15/2024 7:05 AM EST) WBC 7.6 4.8 - 10.8 K/[facility] LAB HEMETOLOGY METHOD 06/15/2024 7:56 AM EST [facility] LAB RBC 4.60 4.50 - 5.50 M/[facility] LAB HEMETOLOGY METHOD 06/15/2024 7:56 AM [facility] LAB Hemoglobin 14.1 13.5 - 17.5 g/dL LAB HEMETOLOGY METHOD 06/15/2024 7:56 AM [facility] LAB Hematocrit 42.8 42.0 - 54.0 % LAB HEMETOLOGY METHOD 06/15/2024 7:56 AM [facility] LAB MCV 92.2 79.0 - 98.0 FL LAB HEMETOLOGY METHOD 06/15/2024 7:56 AM [facility] LAB MCH 30.4 27.0 - 32.0 pcg LAB HEMETOLOGY METHOD 06/15/2024 7:56 AM [facility] LAB MCHC 32.9 32.0 - 37.0 g/dL LAB HEMETOLOGY METHOD 06/15/2024 7:56 AM [facility] LAB RDW 12.8 11.0 - 15.0 % LAB HEMETOLOGY METHOD 06/15/2024 7:56 AM [facility] LAB Platelets 257 130 - 400 K/mcL LAB HEMETOLOGY METHOD 06/15/2024 7:56 AM [facility] LAB MPV 9.6 7.0 - 11.0 FL LAB HEMETOLOGY METHOD 06/15/2024 7:56 AM [facility] LAB NRBC 0.0 <1.0 % LAB HEMETOLOGY METHOD 06/15/2024 7:56 AM [facility] LAB NRBC Absolute 0.00 <0.10 K/mcL LAB HEMETOLOGY METHOD 06/15/2024 7:56 AM [facility] LAB Neutrophils Relative 63.0 % LAB HEMETOLOGY METHOD 06/15/2024 7:56 AM [facility] LAB Lymphocytes Relative 20.8 % LAB HEMETOLOGY METHOD 06/15/2024 7:56 AM [facility] LAB Monocytes Relative 12.4 % LAB HEMETOLOGY METHOD 06/15/2024 7:56 AM EST [facility] LAB Eosinophils Relative 2.4 % LAB HEMETOLOGY METHOD 06/15/2024 7:56 AM EST [facility] LAB Basophils Relative 0.7 % LAB HEMETOLOGY METHOD 06/15/2024 7:56 AM [facility] LAB Immature Granulocytes Relative 0.7 % LAB HEMETOLOGY METHOD 06/15/2024 7:56 AM EST [facility] LAB Neutrophils Absolute 4.79 1.50 - 7.00 K/mcL LAB HEMETOLOGY METHOD 06/15/2024 7:56 AM [facility] LAB Lymphocytes Absolute 1.58 1.00 - 5.00 K/mcL LAB HEMETOLOGY METHOD 06/15/2024 7:56 AM [facility] LAB Monocytes Absolute 0.94 0.20 - 1.00 K/mcL LAB HEMETOLOGY METHOD 06/15/2024 7:56 AM EST [facility] LAB Eosinophils Absolute 0.18 0.00 - 0.50 K/mcL LAB HEMETOLOGY METHOD 06/15/2024 7:56 AM EST [facility] LAB Basophils Absolute 0.05 0.00 - 0.20 K/mcL LAB HEMETOLOGY METHOD 06/15/2024 7:56 AM [facility] LAB Immature Granulocytes Absolute 0.05(H) 0.00 - 0.03 K/mcL LAB HEMETOLOGY METHOD 06/15/2024 7:56 AM [facility] LAB Blood Venous blood specimen / Unknown 06/15/2024 7:05 AM EST 06/15/2024 7:41 AM EST Abisai Vega MD LAB BLOOD ORDERABLES [facility] LAB [address] [place] [address], documented in this encounter Visit Diagnoses Diagnosis Other senior care (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 documented in this encounter Care Teams Delivery Coordinator Relationship Specialty Start Date End Date Ronald Webster MD [address] [place] [address] PCP - General Metal Trim Erector 04/12/21 documented as of this encounter
--- OUTSIDE RECORDS SUMMARY | 2024-07-25 08:40 | XMS_ITS | Encounter Summary ---
Author Organization [facility] Address [address] [place] [address] Care Team Providers Care Appointment Coordinator Name Role Phone Ronald Webster MD Primary Care Provider [phone]- [phone] Encounter Details Date Type Department Care Team (Late st Contact Info) Description 05/22/2024 Lab Requisition [facility] - Main Lab [address] [place] [address] Abisai Vega MD [address] [place] [address] [address] [place], [place] Other salvage determiner (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 Social History Tobacco Use [...] Diagnosis Comments CBC WITH AUTO DIFFERENTIAL Routine 05/22/2024 6:55 AM EST Other salvage determiner (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 CBC AND DIFFERENTIAL Routine 05/22/2024 6:55 AM EST Other mcfp (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 documented in this encounter Results * (ABNORMAL) CBC auto differential (05/22/2024 6:55 AM EST) WBC 7.6 4.8 - 10.8 K/[facility] LAB HEMETOLOGY METHOD 05/22/2024 7:40 AM EST [facility] LAB RBC 4.70 4.50 - 5.50 M/[facility] LAB HEMETOLOGY METHOD 05/22/2024 7:40 AM [facility] LAB Hemoglobin 14.6 13.5 - 17.5 g/dL LAB HEMETOLOGY METHOD 05/22/2024 7:40 AM [facility] LAB Hematocrit 43.8 42.0 - 54.0 % LAB HEMETOLOGY METHOD 05/22/2024 7:40 AM [facility] LAB MCV 93.2 79.0 - 98.0 FL LAB HEMETOLOGY METHOD 05/22/2024 7:40 AM [facility] LAB MCH 31.1 27.0 - 32.0 pcg LAB HEMETOLOGY METHOD 05/22/2024 7:40 AM [facility] LAB MCHC 33.3 32.0 - 37.0 g/dL LAB HEMETOLOGY METHOD 05/22/2024 7:40 AM [facility] LAB RDW 12.7 11.0 - 15.0 % LAB HEMETOLOGY METHOD 05/22/2024 7:40 AM [facility] LAB Platelets 267 130 - 400 K/mcL LAB HEMETOLOGY METHOD 05/22/2024 7:40 AM [facility] LAB MPV 9.4 7.0 - 11.0 FL LAB HEMETOLOGY METHOD 05/22/2024 7:40 AM [facility] LAB NRBC 0.0 <1.0 % LAB HEMETOLOGY METHOD 05/22/2024 7:40 AM [facility] LAB NRBC Absolute 0.00 <0.10 K/mcL LAB HEMETOLOGY METHOD 05/22/2024 7:40 AM [facility] LAB Neutrophils Relative 55.3 % LAB HEMETOLOGY METHOD 05/22/2024 7:40 AM [facility] LAB Lymphocytes Relative 25.4 % LAB HEMETOLOGY METHOD 05/22/2024 7:40 AM [facility] LAB Monocytes Relative 15.5 % LAB HEMETOLOGY METHOD 05/22/2024 7:40 AM EST [facility] LAB Eosinophils Relative 2.5 % LAB HEMETOLOGY METHOD 05/22/2024 7:40 AM EST [facility] LAB Basophils Relative 0.5 % LAB HEMETOLOGY METHOD 05/22/2024 7:40 AM [facility] LAB Immature Granulocytes Relative 0.8 % LAB HEMETOLOGY METHOD 05/22/2024 7:40 AM EST [facility] LAB Neutrophils Absolute 4.19 1.50 - 7.00 K/mcL LAB HEMETOLOGY METHOD 05/22/2024 7:40 AM EST [facility] LAB Lymphocytes Absolute 1.93 1.00 - 5.00 K/mcL LAB HEMETOLOGY METHOD 05/22/2024 7:40 AM [facility] LAB Monocytes Absolute 1.18(H) 0.20 - 1.00 K/mcL LAB HEMETOLOGY METHOD 05/22/2024 7:40 AM EST [facility] LAB Eosinophils Absolute 0.19 0.00 - 0.50 K/mcL LAB HEMETOLOGY METHOD 05/22/2024 7:40 AM EST [facility] LAB Basophils Absolute 0.04 0.00 - 0.20 K/mcL LAB HEMETOLOGY METHOD 05/22/2024 7:40 AM [facility] LAB Immature Granulocytes Absolute 0.06(H) 0.00 - 0.03 K/mcL LAB HEMETOLOGY METHOD 05/22/2024 7:40 AM EST [facility] LAB Blood Venous blood specimen / Unknown 05/22/2024 6:55 AM EST 05/22/2024 7:26 AM EST Abisai Vega MD LAB BLOOD ORDERABLES [facility] LAB [address] [place] [address], documented in this encounter Visit Diagnoses Diagnosis Other mcfp (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 documented in this encounter Care Teams Appointment Coordinator Relationship Specialty Start Date End Date Ronald Webster MD [address] [place] [address] PCP - General Precast Worker 04/12/21 documented as of this encounter
--- OUTSIDE RECORDS SUMMARY | 2024-07-25 08:40 | XMS_ITS | Encounter Summary ---
Author Organization [facility] Address [address] [place] [address] Care Team Providers Care Sprinkler Helper Name Role Phone Ronald Webster MD Primary Care Provider [phone]- [phone] Encounter Details Date Type Department Care Team (Late st Contact Info) Description 05/16/2024 Lab Requisition [facility] - Main Lab [address] [facility] [employer] [place] [address] Abisai Vega MD [address] [place] [address] [address] [place], [place] Diffuse traumatic brain injury with loss of consciousness of unspecified duration, initial encounter (CMS/HCC); Schizophrenia, unspecified (CMS/HCC) Social History Tobacco Use Types Packs/Day Years [...] Procedure Name Priority Date/Time Associated Diagnosis Comments CLOZAPINE Routine 05/16/2024 6:45 AM EST Diffuse traumatic brain injury with loss of consciousness of unspecified duration, initial encounter (CMS/HCC) Schizophrenia, unspecified (CMS/HCC) CBC WITH AUTO DIFFERENTIAL Routine 05/16/2024 6:45 AM EST Diffuse traumatic brain injury with loss of consciousness of unspecified duration, initial encounter (CMS/HCC) Schizophrenia, unspecified (CMS/HCC) CBC AND DIFFERENTIAL Routine 05/16/2024 6:45 AM EST Diffuse traumatic brain injury with loss of consciousness of unspecified duration, initial encounter (CMS/HCC) Schizophrenia, unspecified (CMS/HCC) COMPREHENSIVE METABOLIC PANEL Routine 05/16/2024 6:45 AM EST Diffuse traumatic brain injury with loss of consciousness of unspecified duration, initial encounter (CMS/HCC) Schizophrenia, unspecified (CMS/HCC) documented in this encounter Results * (ABNORMAL) CBC auto differential (05/16/2024 6:45 AM EST) WBC 9.6 4.8 - 10.8 K/mcL LAB HEMETOLOGY METHOD 05/16/2024 8:27 AM [facility] LAB RBC 4.60 4.50 - 5.50 M/mcL LAB HEMETOLOGY METHOD 05/16/2024 8:27 AM [facility] LAB Hemoglobin 14.2 13.5 - 17.5 g/dL LAB HEMETOLOGY METHOD 05/16/2024 8:27 AM [facility] LAB Hematocrit 43.1 42.0 - 54.0 % LAB HEMETOLOGY METHOD 05/16/2024 8:27 AM [facility] LAB MCV 93.7 79.0 - 98.0 FL LAB HEMETOLOGY METHOD 05/16/2024 8:27 AM [facility] LAB MCH 30.9 27.0 - 32.0 pcg LAB HEMETOLOGY METHOD 05/16/2024 8:27 AM [facility] LAB MCHC 32.9 32.0 - 37.0 g/dL LAB HEMETOLOGY METHOD 05/16/2024 8:27 AM [facility] LAB RDW 12.9 11.0 - 15.0 % LAB HEMETOLOGY METHOD 05/16/2024 8:27 AM [facility] LAB Platelets 227 130 - 400 K/mcL LAB HEMETOLOGY METHOD 05/16/2024 8:27 AM [facility] LAB MPV 9.9 7.0 - 11.0 FL LAB HEMETOLOGY METHOD 05/16/2024 8:27 AM [facility] LAB NRBC 0.0 <1.0 % LAB HEMETOLOGY METHOD 05/16/2024 8:27 AM [facility] LAB NRBC Absolute 0.00 <0.10 K/mcL LAB HEMETOLOGY METHOD 05/16/2024 8:27 AM [facility] LAB Neutrophils Relative 68.4 % LAB HEMETOLOGY METHOD 05/16/2024 8:27 AM [facility] LAB Lymphocytes Relative 16.8 % LAB HEMETOLOGY METHOD 05/16/2024 8:27 AM [facility] LAB Monocytes Relative 12.0 % LAB HEMETOLOGY METHOD 05/16/2024 8:27 AM [facility] LAB Eosinophils Relative 1.7 % LAB HEMETOLOGY METHOD 05/16/2024 8:27 AM [facility] LAB Basophils Relative 0.3 % LAB HEMETOLOGY METHOD 05/16/2024 8:27 AM [facility] LAB Immature Granulocytes Relative 0.8 % LAB HEMETOLOGY METHOD 05/16/2024 8:27 AM [facility] LAB Neutrophils Absolute 6.54 1.50 - 7.00 K/mcL LAB HEMETOLOGY METHOD 05/16/2024 8:27 AM [facility] LAB Lymphocytes Absolute 1.61 1.00 - 5.00 K/mcL LAB HEMETOLOGY METHOD 05/16/2024 8:27 AM [facility] LAB Monocytes Absolute 1.15(H) 0.20 - 1.00 K/mcL LAB HEMETOLOGY METHOD 05/16/2024 8:27 AM [facility] LAB Eosinophils Absolute 0.16 0.00 - 0.50 K/mcL LAB HEMETOLOGY METHOD 05/16/2024 8:27 AM [facility] LAB Basophils Absolute 0.03 0.00 - 0.20 K/mcL LAB HEMETOLOGY METHOD 05/16/2024 8:27 AM EST [facility] LAB Immature Granulocytes Absolute 0.08(H) 0.00 - 0.03 K/mcL LAB HEMETOLOGY METHOD 05/16/2024 8:27 AM EST [facility] LAB Blood Venous blood specimen / Unknown 05/16/2024 6:45 AM EST 05/16/2024 7:53 AM EST Abisai Vega MD LAB BLOOD ORDERABLES [facility] LAB [address] [place] [address], * (ABNORMAL) Clozapine (05/16/2024 6:45 AM EST) Clozapine 264 200 - 700 ng/mL 05/18/2024 9:05 AM EST [facility] LAB Comment:Clozapine (Clozaril) toxic level: >1000 ng/mL Norclozapine 132(L) 200 - 700 ng/mL 05/18/2024 9:05 AM EST [facility] LAB Comment: For Refractory Schizophrenia, at least 350 ng/mL of Clozapine should be achieved to evaluate efficacy. After response is achieved, reduce dose to minimum level needed to maintain remission. Seizure activity may occur with Clozapine levels over 600 ng/mL, but is unusual below 1000 ng/mL. The biological activity of Clozapine metabolites is not fully known. Typically, Norclozapine concentrations are similar to those of the parent Clozapine (+/- 50%). If applicable, any drug confirmation testing reported here was developed and the performance characteristics determined by [facility]. This confirmation testing has not been cleared or approved by the FDA. The laboratory is regulated under CLIA as qualified to perform high-complexity testing. This test is used for patient testing purposes. It should not be regarded as investigational or for research. Test performed at [facility], [address] , [place], [place] ??[address] ? [phone] Rosalie Villalba MD, PhD - Retail Coordinator Blood Venous blood specimen / Unknown 05/16/2024 6:45 AM EST 05/16/2024 7:53 AM EST Abisai Vega MD LAB BLOOD ORDERABLES [place] [address] * (ABNORMAL) Comprehensive metabolic panel (05/16/2024 6:45 AM EST) Sodium 143 133 - 145 mmol/L LAB CHEMISTRY METHOD 05/16/2024 8:36 AM [facility] LAB Potassium 4.4 3.5 - 5.5 mmol/L LAB CHEMISTRY METHOD 05/16/2024 8:36 AM [facility] LAB Chloride 109 96 - 110 mmol/L LAB CHEMISTRY METHOD 05/16/2024 8:36 AM [facility] LAB CO2 30 21 - 32 mmol/L LAB CHEMISTRY METHOD 05/16/2024 8:36 AM [facility] LAB Anion Gap 4 3 - 11 LAB CHEMISTRY METHOD 05/16/2024 8:36 AM [facility] LAB Glucose 83 70 - 100 mg/dL LAB CHEMISTRY METHOD 05/16/2024 8:36 AM [facility] LAB BUN 20 5 - 25 mg/dL LAB CHEMISTRY METHOD 05/16/2024 8:36 AM [facility] LAB Creatinine 0.67(L) 0.70 - 1.30 mg/dL LAB CHEMISTRY METHOD 05/16/2024 8:36 AM [facility] LAB eGFR 108 >=60 mL/min/1. 73m2 LAB CHEMISTRY METHOD 05/16/2024 8:36 AM [facility] LAB Comment:Calculation based on the??Chronic Kidney Disease Epidemiology Collaboration (CKD-EPI) equation refit??without adjustment for race. BUN/Creatinine Ratio 29.9 LAB CHEMISTRY METHOD 05/16/2024 8:36 AM [facility] LAB Calcium 8.7 8.5 - 10.5 mg/dL LAB CHEMISTRY METHOD 05/16/2024 8:36 AM [facility] LAB AST (SGOT) 19 10 - 42 unit/L LAB CHEMISTRY METHOD 05/16/2024 8:36 AM [facility] LAB ALT (SGPT) 34 10 - 60 unit/L LAB CHEMISTRY METHOD 05/16/2024 8:36 AM [facility] LAB Alkaline Phosphatase 91 42 - 121 unit/L LAB CHEMISTRY METHOD 05/16/2024 8:36 AM [facility] LAB Total Protein 5.9(L) 6.0 - 8.0 g/dL LAB CHEMISTRY METHOD 05/16/2024 8:36 AM [facility] LAB Albumin 3.2 3.2 - 5.0 g/dL LAB CHEMISTRY METHOD 05/16/2024 8:36 AM [facility] LAB Total Bilirubin 0.6 0.0 - 1.4 mg/dL LAB CHEMISTRY METHOD 05/16/2024 8:36 AM [facility] LAB Blood Venous blood specimen / Unknown 05/16/2024 6:45 AM EST 05/16/2024 7:53 AM EST Abisai Vega MD LAB BLOOD ORDERABLES [facility] LAB [address] [place] [address], documented in this encounter Visit Diagnoses Diagnosis Diffuse traumatic brain injury with loss of consciousness of unspecified duration, initial encounter (CMS/HCC) Schizophrenia, unspecified (CMS/HCC) documented in this encounter Care Teams Sprinkler Helper Relationship Specialty Start Date End Date Ronald Webster MD [address] [place] [address] PCP - General Foiling Machine Adjuster 04/12/21 documented as of this encounter
--- OUTSIDE RECORDS SUMMARY | 2024-07-25 08:40 | XMS_ITS | Encounter Summary ---
Author Organization [facility] Address [address] [place] [address] Care Team Providers Care Sales Representative Public Utilities Name Role Phone Ronald Webster MD Primary Care Provider [phone] Encounter Details Date Type Department Care Team (Late st Contact Info) Description 06/05/[address] [facility] - Main Lab [address] [facility] [place] [address] Abisai Vega MD [address] [place] [address] [address] [place], [place] Other digital media intern (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 Social History Tobacco Use [...] Priority Date/Time Associated Diagnosis Comments CLOZAPINE Routine 06/05/2024 7:25 AM EST Other retirement (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 CBC WITH AUTO DIFFERENTIAL Routine 06/05/2024 7:25 AM EST Other retirement (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 CLONAZEPAM LEVEL Routine 06/05/2024 7:25 AM EST Other retirement (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 CBC AND DIFFERENTIAL Routine 06/05/2024 7:25 AM EST Other retirement (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 AMMONIA Routine 06/05/2024 7:25 AM EST Other retirement (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 VALPROIC ACID LEVEL, TOTAL Routine 06/05/2024 7:25 AM EST Other digital media intern (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 COMPREHENSIVE METABOLIC PANEL Routine 06/05/2024 7:25 AM EST Other retirement (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 documented in this encounter Results * CBC auto differential (06/05/2024 7:25 AM EST) WBC 5.8 4.8 - 10.8 K/mcL LAB HEMETOLOGY METHOD 06/05/2024 9:22 AM [facility] RBC 4.60 4.50 - 5.50 M/mcL LAB HEMETOLOGY METHOD 06/05/2024 9:22 AM [facility] Hemoglobin 14.1 13.5 - 17.5 g/dL LAB HEMETOLOGY METHOD 06/05/2024 9:22 AM [facility] Hematocrit 42.8 42.0 - 54.0 % LAB HEMETOLOGY METHOD 06/05/2024 9:22 AM [facility] MCV 92.6 79.0 - 98.0 FL LAB HEMETOLOGY METHOD 06/05/2024 9:22 AM [facility] MCH 30.5 27.0 - 32.0 pcg LAB HEMETOLOGY METHOD 06/05/2024 9:22 AM [facility] MCHC 32.9 32.0 - 37.0 g/dL LAB HEMETOLOGY METHOD 06/05/2024 9:22 AM [facility] RDW 12.7 11.0 - 15.0 % LAB HEMETOLOGY METHOD 06/05/2024 9:22 AM [facility] Platelets 204 130 - 400 K/mcL LAB HEMETOLOGY METHOD 06/05/2024 9:22 AM [facility] Comment:reviewed by slide MPV 10.5 7.0 - 11.0 FL LAB HEMETOLOGY METHOD 06/05/2024 9:22 AM [facility] NRBC 0.0 <1.0 % LAB HEMETOLOGY METHOD 06/05/2024 9:22 AM [facility] NRBC Absolute 0.00 <0.10 K/mcL LAB HEMETOLOGY METHOD 06/05/2024 9:22 AM [facility] Neutrophils Relative 66.2 % LAB HEMETOLOGY METHOD 06/05/2024 9:22 AM [facility] Lymphocytes Relative 20.8 % LAB HEMETOLOGY METHOD 06/05/2024 9:22 AM [facility] Monocytes Relative 10.7 % LAB HEMETOLOGY METHOD 06/05/2024 9:22 AM [facility] Eosinophils Relative 1.7 % LAB HEMETOLOGY METHOD 06/05/2024 9:22 AM [facility] Basophils Relative 0.3 % LAB HEMETOLOGY METHOD 06/05/2024 9:22 AM [facility] Immature Granulocytes Relative 0.3 % LAB HEMETOLOGY METHOD 06/05/2024 9:22 AM [facility] Neutrophils Absolute 3.84 1.50 - 7.00 K/mcL LAB HEMETOLOGY METHOD 06/05/2024 9:22 AM [facility] Lymphocytes Absolute 1.21 1.00 - 5.00 K/mcL LAB HEMETOLOGY METHOD 06/05/2024 9:22 AM [facility] Monocytes Absolute 0.62 0.20 - 1.00 K/mcL LAB HEMETOLOGY METHOD 06/05/2024 9:22 AM [facility] Eosinophils Absolute 0.10 0.00 - 0.50 K/mcL LAB HEMETOLOGY METHOD 06/05/2024 9:22 AM [facility] Basophils Absolute 0.02 0.00 - 0.20 K/mcL LAB HEMETOLOGY METHOD 06/05/2024 9:22 AM [facility] Immature Granulocytes Absolute 0.02 0.00 - 0.03 K/mcL LAB HEMETOLOGY METHOD 06/05/2024 9:22 AM EST [facility] Blood Venous blood specimen / Unknown 06/05/2024 7:25 AM EST 06/05/2024 8:00 AM EST Abisai Vega MD LAB BLOOD ORDERABLES Performing Organization Address City/[facility]/ZIP Co de Phone Number [facility] [address] [place] [address], * Clonazepam level (06/05/2024 7:25 AM EST) Clonazepam <10 15 - 60 ng/mL 06/07/2024 9:54 AM EST [facility] Comment: Clonazepam (Klonopin)toxic level: ??>80 ng/mL If applicable, any drug confirmation testing reported here was developed and the performance characteristics determined by [facility]. This confirmation testing has not been cleared or approved by the FDA. The laboratory is regulated under CLIA as qualified to perform high-complexity testing. This test is used for patient testing purposes. It should not be regarded as investigational or for research. Test performed at [facility], [address] , [place], [place] ??[address] ? [phone] Rosalie Villalba MD, PhD - Instrument Panel Assembler Blood Venous blood specimen / Unknown 06/05/2024 7:25 AM EST 06/05/2024 8:00 AM EST Abisai Vega MD LAB BLOOD ORDERABLES Performing Organization Address City/[facility]/ZIP Co de Phone Number [facility] [address] [place] [address] * Clozapine (06/05/2024 7:25 AM EST) Clozapine 506 200 - 700 ng/mL 06/07/2024 7:22 AM EST [facility] Comment:Clozapine (Clozaril) toxic level: >1000 ng/mL Norclozapine 214 200 - 700 ng/mL 06/07/2024 7:22 AM EST [facility] Comment: For Refractory Schizophrenia, at least [...] developed and the performance characteristics determined by [facility]. This confirmation testing has not been cleared or approved by the FDA. The laboratory is regulated under CLIA as qualified to perform high-complexity testing. This test is used for patient testing purposes. It should not be regarded as investigational or for research. Test performed at [facility], [address] , [place], [place] ??[address] ? [phone] Rosalie Villalba MD, PhD - Instrument Panel Assembler Blood Venous blood specimen / Unknown 06/05/2024 7:25 AM EST 06/05/2024 8:00 AM EST Abisai Vega MD LAB BLOOD ORDERABLES [facility] [address] [place] [place] [address] * (ABNORMAL) Ammonia (06/05/2024 7:25 AM EST) Ammonia 39(H) 11 - 35 mcmol/L LAB CHEMISTRY METHOD 06/05/2024 8:40 AM EST [facility] Blood Venous blood specimen / Unknown 06/05/2024 7:25 AM EST 06/05/2024 8:00 AM EST Abisai Vega MD LAB BLOOD ORDERABLES Performing Organization Address City/[facility]/ZIP Co de Phone Number [facility]) [facility] [address] [place] [address], * Valproic acid level, total (06/05/2024 7:25 AM EST) Pathologist [facility] Valproic Acid, Total 61 50 - 100 mcg/mL LAB CHEMISTRY METHOD 06/05/2024 8:55 AM [facility] Blood Venous blood specimen / Unknown 06/05/2024 7:25 AM EST 06/05/2024 8:00 AM EST Abisai Vega MD LAB BLOOD ORDERABLES [facility] [address] [place] [address], * Comprehensive metabolic panel (06/05/2024 7:25 AM EST) Pathologist [facility] Sodium 141 133 - 145 mmol/L LAB CHEMISTRY METHOD 06/05/2024 8:55 AM [facility] Potassium 4.3 3.5 - 5.5 mmol/L LAB CHEMISTRY METHOD 06/05/2024 8:55 AM [facility] Chloride 106 96 - 110 mmol/L LAB CHEMISTRY METHOD 06/05/2024 8:55 AM [facility] CO2 28 21 - 32 mmol/L LAB CHEMISTRY METHOD 06/05/2024 8:55 AM [facility] Anion Gap 7 3 - 11 LAB CHEMISTRY METHOD 06/05/2024 8:55 AM [facility] Glucose 88 70 - 100 mg/dL LAB CHEMISTRY METHOD 06/05/2024 8:55 AM [facility] BUN 18 5 - 25 mg/dL LAB CHEMISTRY METHOD 06/05/2024 8:55 AM [facility] Creatinine 0.72 0.70 - 1.30 mg/dL LAB CHEMISTRY METHOD 06/05/2024 8:55 AM [facility] eGFR 106 >=60 mL/min/1. 73m2 LAB CHEMISTRY METHOD 06/05/2024 8:55 AM [facility] Comment:Calculation based on the??Chronic Kidney Disease Epidemiology Collaboration (CKD-EPI) equation refit??without adjustment for race. BUN/Creatinine Ratio 25.0 LAB CHEMISTRY METHOD 06/05/2024 8:55 AM [facility] Calcium 9.0 8.5 - 10.5 mg/dL LAB CHEMISTRY METHOD 06/05/2024 8:55 AM [facility] AST (SGOT) 16 10 - 42 unit/L LAB CHEMISTRY METHOD 06/05/2024 8:55 AM [facility] ALT (SGPT) 19 10 - 60 unit/L LAB CHEMISTRY METHOD 06/05/2024 8:55 AM [facility] Alkaline Phosphatase 76 42 - 121 unit/L LAB CHEMISTRY METHOD 06/05/2024 8:55 AM [facility] Total Protein 6.1 6.0 - 8.0 g/dL LAB CHEMISTRY METHOD 06/05/2024 8:55 AM [facility] Albumin 3.3 3.2 - 5.0 g/dL LAB CHEMISTRY METHOD 06/05/2024 8:55 AM [facility] Total Bilirubin 0.8 0.0 - 1.4 mg/dL LAB CHEMISTRY METHOD 06/05/2024 8:55 AM [facility] Blood Venous blood specimen / Unknown 06/05/2024 7:25 AM EST 06/05/2024 8:00 AM EST Abisai Vega MD LAB BLOOD ORDERABLES [facility] [address] [place] [address], documented in this encounter Visit Diagnoses Diagnosis Other retirement (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 documented in this encounter Care Teams Sales Representative Public Utilities Relationship Specialty Start Date End Date Ronald Webster MD [address] [phone] (Work) PCP - General Sales Office Assistant 04/12/21 documented as of this encounter
--- OUTSIDE RECORDS SUMMARY | 2024-07-25 08:40 | XMS_ITS | Clinical Summary ---
Author Organization [address] Address [address] [place] [address] Phone Care Team Providers Care Dedenter Name Role Phone Ronald Webster MD Primary Care Provider [phone]- [phone] Encounters Date Type Department Care Team Description 07/24/[address] [facility] Lab [address] [place] [phone] Abisai Vega MD Hypothyroidism, unspecified; Schizophrenia, unspecified (CMS/HCC) 06/29/[address] [facility] Lab [address] [place] [phone] Abisai Vega MD Diffuse traumatic brain injury with loss of consciousness of unspecified duration, sequela (CMS/HCC) 06/27/[address] [facility] Lab [address] [place] [phone] Abisai Vega MD Diffuse traumatic brain injury with loss of consciousness of unspecified duration, sequela (CMS/HCC) 06/22/[address] [facility] Lab [address] [place] [phone] Abisai Vega MD Diffuse traumatic brain injury with loss of consciousness of unspecified duration, sequela (CMS/HCC); Diverticulitis of large intestine without perforation or abscess without bleeding 06/19/[address] [facility] Lab [address] [place] [phone] Abisai Vega MD Other longwall machine operator helper (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 06/15/[address] [facility] Lab [address] [place] [phone] Abisai Vega MD Other longwall machine operator helper (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 06/08/2024 [address] [facility] Lab [address] [place] [phone] Abisai Vega MD Other longwall machine operator helper (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 06/05/2024 Lab Requisition [facility] Main Lab [address] [place] [phone] Abisai Vega MD Other usp (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 06/02/2024 Lab Requisition [facility] Main Lab [address] [place] [phone] Abisai Vega MD Other usp (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 05/22/2024 Lab Requisition [facility] Lab [address] [place] [phone] Abisai Vega MD Other longwall machine operator helper (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 05/16/2024 Lab Requisition [facility] Main Lab [address] [place] [phone] Abisai Vega MD Diffuse traumatic brain injury with loss of consciousness of unspecified duration, initial encounter ([facility]); Schizophrenia, unspecified ([facility]) 05/05/2024 Lab Requisition [facility] Lab [address] [place] [phone] Abisai Vega MD Other usp (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 from Last 3 Months Surgical History Surgery Date Site/Laterality Comments OTHER SURGICAL HISTORY 2003 PROCEDURE:ORIF Left tibia Medical History Medical History Date Comments Schizophrenia ([facility]) DX:Schiz ophrenia ([facility]) 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 ([facility]) 07/27/2016 DX:Schizophrenia spectrum di sorder with psychotic disorder 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 determined ([facility]) Noncompliance with medication regimen 07/27/2016 DX:Noncompliance with medication regimen Hypokalemia 07/27/2016 DX:Hypokalemia Social History Tobacco Use Types Packs/Day Years Used Date Smoking Tobacco: Former Cigarettes Q uit: 07/29/2013 Smokeless Tobacco: Former Alcohol Use Standard Drinks/Week Comments No 0 (1 standard drink = 0.6 oz pur e alcohol) Sex and Gender Information Value Date Recorded Sex Assigned at Not on file Gender Identity Not on file Sexual Orientation Not on file Obstetrics History Plan of Treatment Health Maintenance Due Date Last Done Comments Hepatitis B Vaccines (1 of 3 - 19+ 3-dose series) 1984 Zoster Vaccines (1 of 2) 2015 Colorectal Cancer Screening: Colonoscopy 05/26/2022 Depression Screening 05/26/2022 HIV Screening 05/26/2022 Hepatitis C Screening 05/26/2022 Social Influencers of Health Screening 05/26/2022 COVID-19 Vaccine (2 - 2023-2 5 season) 2024 07/14/2021 Influenza Vaccine (#1) 2024 Cholesterol Screening (Lipid Panel) 06/29/2029 06/29/2024 DTaP,Tdap,and Td Vaccines (2 - Td or Tdap) 04/12/2031 04/12/2021 HIB Vaccines Aged Out No longer eligi ble based on patient's age to complete this topic HPV Vaccines Aged Out No longer eligi ble based on patient's age to complete this topic Hepatitis A Vaccines Aged Out No long er eligible based on patient's age to complete this topic IPV Vaccines Aged Out No longer eligi ble based on patient's age to complete this topic MMR Vaccines Aged Out No longer eligi ble based on patient's age to complete this topic Meningococcal ACWY Vaccine Aged Out N o longer eligible based on patient's age to complete this topic Pneumococcal Vaccine: Pediat rics (0 to 5 Years) and At-Risk Patients (6 to 64 Years) Aged Out No longer eligi ble based on patient's age to complete this topic RSV Immunization Patients Un mikel 20 months Aged Out No longer eligible b ased on patient's age to complete this topic Varicella Vaccines Aged Out No longer eligible based on patient's age to complete this topic Procedures Procedure Name Priority Date/Time Associated Diagnosis Comments CBC WITH AUTO DIFFERENTIAL Routine 07/24/2024 6:34 AM EST Hypothyroidism, unspecified Schizophrenia, unspecified (CMS/HCC) CBC AND DIFFERENTIAL Routine 07/24/2024 6:34 AM EST Hypothyroidism, unspecified Schizophrenia, unspecified (CMS/HCC) PROSTATE SPECIFIC ANTIGEN DIAGNOSTIC Routine 06/29/2024 6:36 AM EST Diffuse traumatic brain injury with loss of consciousness of unspecified duration, sequela (CMS/HCC) THYROXINE FREE Routine 06/29/2024 6:36 AM EST Diffuse traumatic brain injury with loss of consciousness of unspecified duration, sequela (CMS/HCC) LIPID PANEL WITH REFLEX TO DIRECT LDL Routine 06/29/2024 6:36 AM EST Diffuse traumatic brain injury with loss of consciousness of unspecified duration, sequela (CMS/HCC) CBC WITH AUTO DIFFERENTIAL Routine 06/27/2024 7:00 AM EST Diffuse traumatic brain injury with loss of consciousness of unspecified duration, sequela (CMS/HCC) CBC AND DIFFERENTIAL Routine 06/27/2024 7:00 AM EST Diffuse traumatic brain injury with loss of consciousness of unspecified duration, sequela (CMS/HCC) CBC WITH AUTO DIFFERENTIAL Routine 06/22/2024 6:38 AM EST Diffuse traumatic brain injury with loss of consciousness of unspecified duration, sequela (CMS/HCC) Diverticulitis of large intestine without perforation or abscess without bleeding CBC AND DIFFERENTIAL Routine 06/22/2024 6:38 AM EST Diffuse traumatic brain injury with loss of consciousness of unspecified duration, sequela (CMS/HCC) Diverticulitis of large intestine without perforation or abscess without bleeding CBC WITH AUTO DIFFERENTIAL Routine 06/19/2024 5:10 AM EST Other usp (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 CBC AND DIFFERENTIAL Routine 06/19/2024 5:10 AM EST Other usp (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 CBC WITH AUTO DIFFERENTIAL Routine 06/15/2024 7:05 AM EST Other longwall machine operator helper (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 CBC AND DIFFERENTIAL Routine 06/15/2024 7:05 AM EST Other longwall machine operator helper (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 CBC WITH AUTO DIFFERENTIAL Routine 06/08/2024 5:07 AM EST Other longwall machine operator helper (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 CBC AND DIFFERENTIAL Routine 06/08/2024 5:07 AM EST Other usp (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 CBC WITH AUTO DIFFERENTIAL Routine 06/05/2024 7:25 AM EST Other longwall machine operator helper (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 CLONAZEPAM LEVEL Routine 06/05/2024 7:25 AM EST Other longwall machine operator helper (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 CLOZAPINE Routine 06/05/2024 7:25 AM EST Other usp (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 AMMONIA Routine 06/05/2024 7:25 AM EST Other longwall machine operator helper (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 VALPROIC ACID LEVEL, TOTAL Routine 06/05/2024 7:25 AM EST Other longwall machine operator helper (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 COMPREHENSIVE METABOLIC PANEL Routine 06/05/2024 7:25 AM EST Other longwall machine operator helper (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 CBC AND DIFFERENTIAL Routine 06/05/2024 7:25 AM EST Other longwall machine operator helper (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 CBC WITH AUTO DIFFERENTIAL Routine 06/02/2024 5:40 AM EST Other usp (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 THYROXINE FREE Routine 06/02/2024 5:40 AM EST Other longwall machine operator helper (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 THYROID STIMULATING HORMONE Routine 06/02/2024 5:40 AM EST Other usp (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 CBC AND DIFFERENTIAL Routine 06/02/2024 5:40 AM EST Other usp (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 CBC WITH AUTO DIFFERENTIAL Routine 05/22/2024 6:55 AM EST Other usp (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 CBC AND DIFFERENTIAL Routine 05/22/2024 6:55 AM EST Other usp (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 CBC WITH AUTO DIFFERENTIAL Routine 05/16/2024 6:45 AM EST Diffuse traumatic brain injury with loss of consciousness of unspecified duration, initial encounter (CMS/HCC) Schizophrenia, unspecified (CMS/HCC) CLOZAPINE Routine 05/16/2024 6:45 AM EST Diffuse [...] unspecified (CMS/HCC) CBC WITH AUTO DIFFERENTIAL Routine 05/05/2024 4:50 AM EST Other longwall machine operator helper (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 CBC AND DIFFERENTIAL Routine 05/05/2024 4:50 AM EST Other usp (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 from Last 3 Months Results * (ABNORMAL) CBC auto differential (07/24/2024 6:34 AM EST) Only the most recent of11 resultswithin the time period is included. WBC 8.2 4.8 - 10.8 K/[facility] LAB HEMETOLOGY METHOD 07/24/2024 8:58 AM EST [facility] RBC 4.60 4.50 - 5.50 M/mcL LAB HEMETOLOGY METHOD 07/24/2024 8:58 AM EST [facility] Hemoglobin 13.9 13.5 - 17.5 g/dL LAB HEMETOLOGY METHOD 07/24/2024 8:58 AM [facility] Hematocrit 41.5(L) 42.0 - 54.0 % LAB HEMETOLOGY METHOD 07/24/2024 8:58 AM [facility] MCV 90.2 79.0 - 98.0 FL LAB HEMETOLOGY METHOD 07/24/2024 8:58 AM [facility] MCH 30.2 27.0 - 32.0 pcg LAB HEMETOLOGY METHOD 07/24/2024 8:58 AM [facility] MCHC 33.5 32.0 - 37.0 g/dL LAB HEMETOLOGY METHOD 07/24/2024 8:58 AM [facility] RDW 13.4 11.0 - 15.0 % LAB HEMETOLOGY METHOD 07/24/2024 8:58 AM [facility] Platelets 239 130 - 400 K/mcL LAB HEMETOLOGY METHOD 07/24/2024 8:58 AM [facility] MPV 9.5 7.0 - 11.0 FL LAB HEMETOLOGY METHOD 07/24/2024 8:58 AM [facility] NRBC 0.0 <1.0 % LAB HEMETOLOGY METHOD 07/24/2024 8:58 AM [facility] NRBC Absolute 0.00 <0.10 K/mcL LAB HEMETOLOGY METHOD 07/24/2024 8:58 AM [facility] Neutrophils Relative 62.8 % LAB HEMETOLOGY METHOD 07/24/2024 8:58 AM [facility] Lymphocytes Relative 20.1 % LAB HEMETOLOGY METHOD 07/24/2024 8:58 AM [facility] Monocytes Relative 14.6 % LAB HEMETOLOGY METHOD 07/24/2024 8:58 AM [facility] Eosinophils Relative 1.7 % LAB HEMETOLOGY METHOD 07/24/2024 8:58 AM EST [facility] Basophils Relative 0.4 % LAB HEMETOLOGY METHOD 07/24/2024 8:58 AM [facility] Immature Granulocytes Relative 0.4 % LAB HEMETOLOGY METHOD 07/24/2024 8:58 AM [facility] Neutrophils Absolute 5.16 1.50 - 7.00 K/mcL LAB HEMETOLOGY METHOD 07/24/2024 8:58 AM [facility] Lymphocytes Absolute 1.65 1.00 - 5.00 K/mcL LAB HEMETOLOGY METHOD 07/24/2024 8:58 AM [facility] Monocytes Absolute 1.20(H) 0.20 - 1.00 K/mcL LAB HEMETOLOGY METHOD 07/24/2024 8:58 AM [facility] Eosinophils Absolute 0.14 0.00 - 0.50 K/mcL LAB HEMETOLOGY METHOD 07/24/2024 8:58 AM [facility] Basophils Absolute 0.03 0.00 - 0.20 K/mcL LAB HEMETOLOGY METHOD 07/24/2024 8:58 AM [facility] Immature Granulocytes Absolute 0.03 0.00 - 0.03 K/mcL LAB HEMETOLOGY METHOD 07/24/2024 8:58 AM [facility] Blood Venous blood specimen / Unknown 07/24/2024 6:34 AM EST 07/24/2024 8:19 AM EST Abisai Vega MD LAB BLOOD ORDERABLES [facility] [address] [place] [address], * (ABNORMAL) Lipid panel with reflex to direct LDL (06/29/2024 6:36 AM EST) Cholesterol 150 0 - 200 mg/dL LAB CHEMISTRY METHOD 06/29/2024 8:02 AM [facility] Triglycerides 188(H) 0 - 150 mg/dL LAB CHEMISTRY METHOD 06/29/2024 8:02 AM [facility] HDL 39(L) >=40 mg/dL LAB CHEMISTRY METHOD 06/29/2024 8:02 AM [facility] LDL Calculated 73 0 - 100 mg/dL LAB CHEMISTRY METHOD 06/29/2024 8:02 AM [facility] VLDL Cholesterol Naun 37.6 mg/dL LAB CHEMISTRY METHOD 06/29/2024 8:02 AM [facility] Non HDL Chol. (LDL+VLDL) 111 <145 mg/dL LAB CHEMISTRY METHOD 06/29/2024 8:02 AM [facility] Chol/HDL Ratio 3.8 0.0 - 4.4 LAB CHEMISTRY METHOD 06/29/2024 8:02 AM [facility] Blood Venous blood specimen / Unknown 06/29/2024 6:36 AM EST 06/29/2024 7:23 AM EST Abisai Vega MD LAB BLOOD ORDERABLES [facility] [address] [place] [address], * Prostate specific antigen diagnostic (06/29/2024 6:36 AM EST) PSA 0.93 0.00 - 4.00 ng/mL LAB CHEMISTRY METHOD 06/29/2024 9:39 AM [facility] Blood Venous blood specimen / Unknown 06/29/2024 6:36 AM EST 06/29/2024 7:23 AM EST [facility] - 06/29/2024 9:39 AM EST The Siemens Advia Offeesaur Chemiluminescent Immunoassay is used. Results obtained with different assay methods or kits cannot be used interchangeably. Results cannot be interpreted as absolute evidence of the presence or absence of malignant disease. Abisai Vega MD LAB BLOOD ORDERABLES Performing Organization Address City/[facility]/ZIP Co de Phone Number [facility] [address] [place] [address], * Thyroxine free (06/29/2024 6:36 AM EST) Only the most recent of2 resultswithin the time period is included. Free T4 1.30 0.70 - 1.80 ng/dL LAB CHEMISTRY METHOD 06/29/2024 8:38 AM EST [facility] Blood Venous blood specimen / Unknown 06/29/2024 6:36 AM EST 06/29/2024 7:23 AM EST Abisai Vega MD LAB BLOOD ORDERABLES Performing Organization Address [facility] Co de Phone Number [facility] [address] [place] [address], * Clozapine (06/05/2024 7:25 AM EST) Only the most recent of2 resultswithin the time period is included. [facility] Clozapine 506 200 - 700 ng/mL 06/07/2024 7:22 AM EST [facility] Comment:Clozapine (Clozaril) toxic level: >1000 ng/mL Norclozapine 214 200 - 700 ng/mL 06/07/2024 7:22 AM EST [facility] Comment: For Refractory Schizophrenia, at least [...] developed and the performance characteristics determined by [facility]. This confirmation testing has not been cleared or approved by the FDA. The laboratory is regulated under CLIA as qualified to perform high-complexity testing. This test is used for patient testing purposes. It should not be regarded as investigational or for research. Test performed at [facility], [address] [place], [place] ??[address] ? [phone] Rosalie Villalba MD, PhD - Electrical Mechanical Technician Blood Venous blood specimen / Unknown 06/05/2024 7:25 AM EST 06/05/2024 8:00 AM EST Abisai Vega MD LAB BLOOD ORDERABLES Performing Organization Address [facility] Co de Phone Number [facility] [address] [place] [address] * Clonazepam level (06/05/2024 7:25 AM EST) Clonazepam <10 15 - 60 ng/mL 06/07/2024 9:54 AM EST [facility] Comment: Clonazepam (Klonopin)toxic level: ??>80 ng/mL If applicable, any drug confirmation testing reported here was developed and the performance characteristics determined by [facility]. This confirmation testing has not been cleared or approved by the FDA. The laboratory is regulated under CLIA as qualified to perform high-complexity testing. This test is used for patient testing purposes. It should not be regarded as investigational or for research. Test performed at [facility], [address] [place], [place] ??[address] ? [phone] Rosalie Villalba MD, PhD - Electrical Mechanical Technician Blood Venous blood specimen / Unknown 06/05/2024 7:25 AM EST 06/05/2024 8:00 AM EST Abisai Vega MD LAB BLOOD ORDERABLES Performing Organization Address [facility] Co de Phone Number [facility] [address], [place] [phone] * (ABNORMAL) Ammonia (06/05/2024 7:25 AM EST) Ammonia 39(H) 11 - 35 mcmol/L LAB CHEMISTRY METHOD 06/05/2024 8:40 AM EST [facility] Blood Venous blood specimen / Unknown 06/05/2024 7:25 AM EST 06/05/2024 8:00 AM EST Abisai Vega MD LAB BLOOD ORDERABLES Performing Organization Address [facility]/ZIP Co de Phone Number [facility] [address] [place] [address], * Valproic acid level, total (06/05/2024 7:25 AM EST) Pathologist [facility] Valproic Acid, Total 61 50 - 100 mcg/mL LAB CHEMISTRY METHOD 06/05/2024 8:55 AM [facility] Blood Venous blood specimen / Unknown 06/05/2024 7:25 AM EST 06/05/2024 8:00 AM EST Abisai Vega MD LAB BLOOD ORDERABLES Performing Organization Address [facility]/ZIP Co de Phone Number [facility] [address] [place] [address], [place] [phone] * Comprehensive metabolic panel (06/05/2024 7:25 AM EST) Only the most recent of2 resultswithin the time period is included. Pathologist [facility] Sodium 141 133 - 145 mmol/L LAB CHEMISTRY METHOD 06/05/2024 8:55 AM [facility] Potassium 4.3 3.5 - 5.5 mmol/L LAB CHEMISTRY METHOD 06/05/2024 8:55 AM [facility] Chloride 106 96 - 110 mmol/L LAB CHEMISTRY METHOD 06/05/2024 8:55 AM [facility] CO2 28 21 - 32 mmol/L LAB CHEMISTRY METHOD 06/05/2024 8:55 AM [facility] Anion Gap 7 3 - 11 LAB CHEMISTRY METHOD 06/05/2024 8:55 AM [facility] Glucose 88 70 - 100 mg/dL LAB CHEMISTRY METHOD 06/05/2024 8:55 AM [facility] BUN 18 5 - 25 mg/dL LAB CHEMISTRY METHOD 06/05/2024 8:55 AM [facility] Creatinine 0.72 0.70 - 1.30 mg/dL LAB CHEMISTRY METHOD 06/05/2024 8:55 AM [facility] eGFR 106 >=60 mL/min/1. 73m2 LAB CHEMISTRY METHOD 06/05/2024 8:55 AM [facility] Comment:Calculation based on the??Chronic Kidney Disease Epidemiology Collaboration (CKD-EPI) equation refit??without adjustment for race. BUN/Creatinine Ratio 25.0 LAB CHEMISTRY METHOD 06/05/2024 8:55 AM [facility] Calcium 9.0 8.5 - 10.5 mg/dL LAB CHEMISTRY METHOD 06/05/2024 8:55 AM [facility] AST (SGOT) 16 10 - 42 unit/L LAB CHEMISTRY METHOD 06/05/2024 8:55 AM [facility] ALT (SGPT) 19 10 - 60 unit/L LAB CHEMISTRY METHOD 06/05/2024 8:55 AM [facility] Alkaline Phosphatase 76 42 - 121 unit/L LAB CHEMISTRY METHOD 06/05/2024 8:55 AM [facility] Total Protein 6.1 6.0 - 8.0 g/dL LAB CHEMISTRY METHOD 06/05/2024 8:55 AM [facility] Albumin 3.3 3.2 - 5.0 g/dL LAB CHEMISTRY METHOD 06/05/2024 8:55 AM [facility] Total Bilirubin 0.8 0.0 - 1.4 mg/dL LAB CHEMISTRY METHOD 06/05/2024 8:55 AM [facility] Blood Venous blood specimen / Unknown 06/05/2024 7:25 AM EST 06/05/2024 8:00 AM EST Abisai Vega MD LAB BLOOD ORDERABLES Performing Organization Address City/[facility]/ZIP Co de Phone Number [facility] [address] [place] [address], [place] [phone] * Thyroid stimulating hormone (06/02/2024 5:40 AM EST) TSH 0.85 0.40 - 4.00 mcIU/mL LAB CHEMISTRY METHOD 06/02/2024 7:05 AM EST [facility] Blood Venous blood specimen / Unknown 06/02/2024 5:40 AM EST 06/02/2024 6:22 AM EST Abisai Vega MD LAB BLOOD ORDERABLES Performing Organization Address [facility]/ZIP Co de Phone Number [facility] [address] [place] [address], from Last 3 Months Advance Directives Documents on File Type Date Recorded Patient Private Branch Exchange Installer Expl anation Health Care Decision (hx) 08/16/2021 [employer] Care Teams Dedenter Relationship Specialty Start Date End Date Ronald Webster MD [address] [facility] [address] [place] [address] PCP - General Ssrs Report Developer 04/12/21
--- OUTSIDE RECORDS SUMMARY | 2024-07-25 08:40 | XMS_ITS | Encounter Summary ---
Author Organization [facility] Address [address] [place] [address] Care Team Providers Care Bow Repairer Custom Name Role Phone Ronald Webster MD Primary Care Provider +1- [phone] Encounter Details Date Type Department Care Team (Late st Contact Info) Description 06/02/2024 Lab Requisition [facility] - Main Lab [address] [facility] [place] [address] Abisai Vega MD [address] [place] [address] [address] [place], [place] Other remote computer terminal operator (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 Social History Tobacco Use [...] Diagnosis Comments CBC WITH AUTO DIFFERENTIAL Routine 06/02/2024 5:40 AM EST Other remote computer terminal operator (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 CBC AND DIFFERENTIAL Routine 06/02/2024 5:40 AM EST Other halfway (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 THYROID STIMULATING HORMONE Routine 06/02/2024 5:40 AM EST Other halfway (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 THYROXINE FREE Routine 06/02/2024 5:40 AM EST Other remote computer terminal operator (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 documented in this encounter Results * (ABNORMAL) CBC auto differential (06/02/2024 5:40 AM EST) WBC 4.5(L) 4.8 - 10.8 K/mcL LAB HEMETOLOGY METHOD 06/02/2024 6:36 AM [facility] LAB RBC 4.50 4.50 - 5.50 M/mcL LAB HEMETOLOGY METHOD 06/02/2024 6:36 AM [facility] LAB Hemoglobin 13.7 13.5 - 17.5 g/dL LAB HEMETOLOGY METHOD 06/02/2024 6:36 AM [facility] LAB Hematocrit 41.3(L) 42.0 - 54.0 % LAB HEMETOLOGY METHOD 06/02/2024 6:36 AM [facility] LAB MCV 92.6 79.0 - 98.0 FL LAB HEMETOLOGY METHOD 06/02/2024 6:36 AM [facility] LAB MCH 30.7 27.0 - 32.0 pcg LAB HEMETOLOGY METHOD 06/02/2024 6:36 AM [facility] LAB MCHC 33.2 32.0 - 37.0 g/dL LAB HEMETOLOGY METHOD 06/02/2024 6:36 AM [facility] LAB RDW 12.9 11.0 - 15.0 % LAB HEMETOLOGY METHOD 06/02/2024 6:36 AM [facility] LAB Platelets 243 130 - 400 K/mcL LAB HEMETOLOGY METHOD 06/02/2024 6:36 AM [facility] LAB MPV 9.9 7.0 - 11.0 FL LAB HEMETOLOGY METHOD 06/02/2024 6:36 AM [facility] LAB NRBC 0.0 <1.0 % LAB HEMETOLOGY METHOD 06/02/2024 6:36 AM [facility] LAB NRBC Absolute 0.00 <0.10 K/mcL LAB HEMETOLOGY METHOD 06/02/2024 6:36 AM [facility] LAB Neutrophils Relative 34.2 % LAB HEMETOLOGY METHOD 06/02/2024 6:36 AM [facility] LAB Lymphocytes Relative 41.5 % LAB HEMETOLOGY METHOD 06/02/2024 6:36 AM [facility] LAB Monocytes Relative 18.6 % LAB HEMETOLOGY METHOD 06/02/2024 6:36 AM [facility] LAB Eosinophils Relative 4.2 % LAB HEMETOLOGY METHOD 06/02/2024 6:36 AM [facility] LAB Basophils Relative 1.1 % LAB HEMETOLOGY METHOD 06/02/2024 6:36 AM [facility] LAB Immature Granulocytes Relative 0.4 % LAB HEMETOLOGY METHOD 06/02/2024 6:36 AM [facility] LAB Neutrophils Absolute 1.54 1.50 - 7.00 K/mcL LAB HEMETOLOGY METHOD 06/02/2024 6:36 AM [facility] LAB Lymphocytes Absolute 1.87 1.00 - 5.00 K/mcL LAB HEMETOLOGY METHOD 06/02/2024 6:36 AM [facility] LAB Monocytes Absolute 0.84 0.20 - 1.00 K/mcL LAB HEMETOLOGY METHOD 06/02/2024 6:36 AM [facility] LAB Eosinophils Absolute 0.19 0.00 - 0.50 K/mcL LAB HEMETOLOGY METHOD 06/02/2024 6:36 AM [facility] LAB Basophils Absolute 0.05 0.00 - 0.20 K/mcL LAB HEMETOLOGY METHOD 06/02/2024 6:36 AM [facility] LAB Immature Granulocytes Absolute 0.02 0.00 - 0.03 K/mcL LAB HEMETOLOGY METHOD 06/02/2024 6:36 AM [facility] LAB Blood Venous blood specimen / Unknown 06/02/2024 5:40 AM EST 06/02/2024 6:22 AM EST Abisai Vega MD LAB BLOOD ORDERABLES Performing Organization Address [facility] Co de Phone Number [facility] LAB [address] [place] [address], * Thyroxine free (06/02/2024 5:40 AM EST) Free T4 1.34 0.70 - 1.80 ng/dL LAB CHEMISTRY METHOD 06/02/2024 7:05 AM EST [facility] Blood Venous blood specimen / Unknown 06/02/2024 5:40 AM EST 06/02/2024 6:22 AM EST Abisai Vega MD LAB BLOOD ORDERABLES Performing Organization Address [facility] Co de Phone Number [facility] [address] [place] [address], [place] [phone] * Thyroid stimulating hormone (06/02/2024 5:40 AM EST) TSH 0.85 0.40 - 4.00 mcIU/mL LAB CHEMISTRY METHOD 06/02/2024 7:05 AM EST [facility] LAB Blood Venous blood specimen / Unknown 06/02/2024 5:40 AM EST 06/02/2024 6:22 AM EST Abisai Vega MD LAB BLOOD ORDERABLES Performing Organization Address [facility]/ZIP Co de Phone Number [facility] [address] [place] [address], [place] [phone] documented in this encounter Visit Diagnoses Diagnosis Other remote computer terminal operator (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 documented in this encounter Care Teams Bow Repairer Custom Relationship Specialty Start Date End Date Ronald Webster MD [address] [address] PCP - General Bi Lead 04/12/21 documented as of this encounter
--- OUTSIDE RECORDS SUMMARY | 2024-07-25 08:40 | XMS_ITS | Encounter Summary ---
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 Social History Tobacco Use [...] Diagnosis Comments CBC WITH AUTO DIFFERENTIAL Routine 05/05/2024 4:50 AM EST 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 CBC AND DIFFERENTIAL Routine 05/05/2024 4:50 AM EST Other residential (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 documented in this encounter Results * (ABNORMAL) CBC auto differential (05/05/2024 4:50 AM EST) WBC 7.5 4.8 - 10.8 K/[facility] LAB HEMETOLOGY METHOD 05/05/2024 7:26 AM EST [facility] LAB RBC 4.00(L) 4.50 - 5.50 M/[facility] LAB HEMETOLOGY METHOD 05/05/2024 7:26 AM [facility] LAB Hemoglobin 12.4(L) 13.5 - 17.5 g/dL LAB HEMETOLOGY METHOD 05/05/2024 7:26 AM [facility] LAB Hematocrit 38.0(L) 42.0 - 54.0 % LAB HEMETOLOGY METHOD 05/05/2024 7:26 AM [facility] LAB MCV 94.8 79.0 - 98.0 FL LAB HEMETOLOGY METHOD 05/05/2024 7:26 AM [facility] LAB MCH 30.9 27.0 - 32.0 pcg LAB HEMETOLOGY METHOD 05/05/2024 7:26 AM [facility] LAB MCHC 32.6 32.0 - 37.0 g/dL LAB HEMETOLOGY METHOD 05/05/2024 7:26 AM [facility] LAB RDW 12.7 11.0 - 15.0 % LAB HEMETOLOGY METHOD 05/05/2024 7:26 AM [facility] LAB Platelets 255 130 - 400 K/mcL LAB HEMETOLOGY METHOD 05/05/2024 7:26 AM [facility] LAB MPV 9.8 7.0 - 11.0 FL LAB HEMETOLOGY METHOD 05/05/2024 7:26 AM [facility] LAB NRBC 0.0 <1.0 % LAB HEMETOLOGY METHOD 05/05/2024 7:26 AM [facility] LAB NRBC Absolute 0.00 <0.10 K/mcL LAB HEMETOLOGY METHOD 05/05/2024 7:26 AM [facility] LAB Neutrophils Relative 50.7 % LAB HEMETOLOGY METHOD 05/05/2024 7:26 AM [facility] LAB Lymphocytes Relative 32.4 % LAB HEMETOLOGY METHOD 05/05/2024 7:26 AM [facility] LAB Monocytes Relative 13.7 % LAB HEMETOLOGY METHOD 05/05/2024 7:26 AM EST [facility] LAB Eosinophils Relative 2.1 % LAB HEMETOLOGY METHOD 05/05/2024 7:26 AM [facility] LAB Basophils Relative 0.7 % LAB HEMETOLOGY METHOD 05/05/2024 7:26 AM [facility] LAB Immature Granulocytes Relative 0.4 % LAB HEMETOLOGY METHOD 05/05/2024 7:26 AM EST [facility] LAB Neutrophils Absolute 3.78 1.50 - 7.00 K/mcL LAB HEMETOLOGY METHOD 05/05/2024 7:26 AM [facility] LAB Lymphocytes Absolute 2.42 1.00 - 5.00 K/mcL LAB HEMETOLOGY METHOD 05/05/2024 7:26 AM [facility] LAB Monocytes Absolute 1.02(H) 0.20 - 1.00 K/mcL LAB HEMETOLOGY METHOD 05/05/2024 7:26 AM EST [facility] LAB Eosinophils Absolute 0.16 0.00 - 0.50 K/mcL LAB HEMETOLOGY METHOD 05/05/2024 7:26 AM [facility] LAB Basophils Absolute 0.05 0.00 - 0.20 K/mcL LAB HEMETOLOGY METHOD 05/05/2024 7:26 AM [facility] LAB Immature Granulocytes Absolute 0.03 0.00 - 0.03 K/mcL LAB HEMETOLOGY METHOD 05/05/2024 7:26 AM [facility] LAB Blood Venous blood specimen / Unknown 05/05/2024 4:50 AM EST 05/05/2024 6:44 AM EST Abisai Vega MD LAB BLOOD ORDERABLES [facility] LAB [address] [place] [address], documented in this encounter Visit Diagnoses Diagnosis Other residential (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 documented in this encounter Care Teams Test Cell Technician Relationship Specialty Start Date End Date Ronald Webster MD [address] [address] PCP - General Interior Decorator Paperhanging 04/12/21 documented as of this encounter
--- OUTSIDE RECORDS SUMMARY | 2024-07-25 08:41 | XMS_ITS | Encounter Summary ---
Author Organization [facility] Address [address] [place] [address] Care Team Providers Care Foundry Patternmaker Name Role Phone Ronald Webster MD Primary Care Provider [phone]- [phone] Encounter Details Date Type Department Care Team (Late st Contact Info) Description 06/19/2024 Lab Requisition [facility] - Main Lab [address] [place] [address] Abisai Vega MD [address] [place] [address] [address] [place] Other long term acute care registered nurse (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 Social History Tobacco Use [...] Diagnosis Comments CBC WITH AUTO DIFFERENTIAL Routine 06/19/2024 5:10 AM EST Other long term acute care registered nurse (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 CBC AND DIFFERENTIAL Routine 06/19/2024 5:10 AM EST Other prison (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 documented in this encounter Results * (ABNORMAL) CBC auto differential (06/19/2024 5:10 AM EST) WBC 7.4 4.8 - 10.8 K/[facility] LAB HEMETOLOGY METHOD 06/19/2024 6:31 AM EST [facility] LAB RBC 4.50 4.50 - 5.50 M/[facility] LAB HEMETOLOGY METHOD 06/19/2024 6:31 AM [facility] LAB Hemoglobin 13.8 13.5 - 17.5 g/dL LAB HEMETOLOGY METHOD 06/19/2024 6:31 AM [facility] LAB Hematocrit 41.8(L) 42.0 - 54.0 % LAB HEMETOLOGY METHOD 06/19/2024 6:31 AM [facility] LAB MCV 92.1 79.0 - 98.0 FL LAB HEMETOLOGY METHOD 06/19/2024 6:31 AM [facility] LAB MCH 30.4 27.0 - 32.0 pcg LAB HEMETOLOGY METHOD 06/19/2024 6:31 AM [facility] LAB MCHC 33.0 32.0 - 37.0 g/dL LAB HEMETOLOGY METHOD 06/19/2024 6:31 AM [facility] LAB RDW 12.6 11.0 - 15.0 % LAB HEMETOLOGY METHOD 06/19/2024 6:31 AM [facility] LAB Platelets 254 130 - 400 K/mcL LAB HEMETOLOGY METHOD 06/19/2024 6:31 AM [facility] LAB MPV 9.5 7.0 - 11.0 FL LAB HEMETOLOGY METHOD 06/19/2024 6:31 AM [facility] LAB NRBC 0.0 <1.0 % LAB HEMETOLOGY METHOD 06/19/2024 6:31 AM [facility] LAB NRBC Absolute 0.00 <0.10 K/mcL LAB HEMETOLOGY METHOD 06/19/2024 6:31 AM [facility] LAB Neutrophils Relative 55.4 % LAB HEMETOLOGY METHOD 06/19/2024 6:31 AM [facility] LAB Lymphocytes Relative 26.8 % LAB HEMETOLOGY METHOD 06/19/2024 6:31 AM [facility] LAB Monocytes Relative 14.3 % LAB HEMETOLOGY METHOD 06/19/2024 6:31 AM EST [facility] LAB Eosinophils Relative 2.3 % LAB HEMETOLOGY METHOD 06/19/2024 6:31 AM [facility] LAB Basophils Relative 0.5 % LAB HEMETOLOGY METHOD 06/19/2024 6:31 AM [facility] LAB Immature Granulocytes Relative 0.7 % LAB HEMETOLOGY METHOD 06/19/2024 6:31 AM EST [facility] LAB Neutrophils Absolute 4.08 1.50 - 7.00 K/mcL LAB HEMETOLOGY METHOD 06/19/2024 6:31 AM EST [facility] LAB Lymphocytes Absolute 1.97 1.00 - 5.00 K/mcL LAB HEMETOLOGY METHOD 06/19/2024 6:31 AM [facility] LAB Monocytes Absolute 1.05(H) 0.20 - 1.00 K/mcL LAB HEMETOLOGY METHOD 06/19/2024 6:31 AM EST [facility] LAB Eosinophils Absolute 0.17 0.00 - 0.50 K/mcL LAB HEMETOLOGY METHOD 06/19/2024 6:31 AM EST [facility] LAB Basophils Absolute 0.04 0.00 - 0.20 K/mcL LAB HEMETOLOGY METHOD 06/19/2024 6:31 AM [facility] LAB Immature Granulocytes Absolute 0.05(H) 0.00 - 0.03 K/mcL LAB HEMETOLOGY METHOD 06/19/2024 6:31 AM EST [facility] LAB Blood Venous blood specimen / Unknown 06/19/2024 5:10 AM EST 06/19/2024 6:14 AM EST Abisai Vega MD LAB BLOOD ORDERABLES [facility] LAB [address] [place] [address], documented in this encounter Visit Diagnoses Diagnosis Other long term acute care registered nurse (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 documented in this encounter Care Teams Foundry Patternmaker Relationship Specialty Start Date End Date Ronald Webster MD [address] [address] PCP - General Refrigeration Engineer 04/12/21 documented as of this encounter
--- OUTSIDE RECORDS SUMMARY | 2024-07-25 08:41 | XMS_ITS | Encounter Summary ---
Author Organization [facility] Address [address] [place] [address] Care Team Providers Care Serology Teacher Name Role Phone Ronald Webster MD Primary Care Provider +1- [phone] Encounter Details Date Type Department Care Team (Late st Contact Info) Description 06/22/2024 Lab Requisition [facility] - Main Lab [address] [facility] [employer] [place] [address] Abisai Vega MD [address] [place] [address] [address] [place], [place] Diffuse traumatic brain injury with loss of consciousness of unspecified duration, sequela (CMS/HCC); Diverticulitis of large intestine without perforation or abscess without bleeding Social History Tobacco Use Types Packs/Day Years [...] Diagnosis Comments CBC WITH AUTO DIFFERENTIAL Routine 06/22/2024 6:38 AM EST Diffuse traumatic brain injury with loss of consciousness of unspecified duration, sequela (CMS/HCC) Diverticulitis of large intestine without perforation or abscess without bleeding CBC AND DIFFERENTIAL Routine 06/22/2024 6:38 AM EST Diffuse traumatic brain injury with loss of consciousness of unspecified duration, sequela (CMS/HCC) Diverticulitis of large intestine without perforation or abscess without bleeding documented in this encounter Results * (ABNORMAL) CBC auto differential (06/22/2024 6:38 AM EST) WBC 7.4 4.8 - 10.8 K/[facility] LAB HEMETOLOGY METHOD 06/22/2024 7:49 AM [facility] LAB RBC 4.80 4.50 - 5.50 M/[facility] LAB HEMETOLOGY METHOD 06/22/2024 7:49 AM [facility] LAB Hemoglobin 14.3 13.5 - 17.5 g/dL LAB HEMETOLOGY METHOD 06/22/2024 7:49 AM [facility] LAB Hematocrit 44.1 42.0 - 54.0 % LAB HEMETOLOGY METHOD 06/22/2024 7:49 AM [facility] LAB MCV 92.5 79.0 - 98.0 FL LAB HEMETOLOGY METHOD 06/22/2024 7:49 AM [facility] LAB MCH 30.0 27.0 - 32.0 pcg LAB HEMETOLOGY METHOD 06/22/2024 7:49 AM [facility] LAB MCHC 32.4 32.0 - 37.0 g/dL LAB HEMETOLOGY METHOD 06/22/2024 7:49 AM [facility] LAB RDW 12.7 11.0 - 15.0 % LAB HEMETOLOGY METHOD 06/22/2024 7:49 AM [facility] LAB Platelets 250 130 - 400 K/mcL LAB HEMETOLOGY METHOD 06/22/2024 7:49 AM [facility] LAB MPV 9.4 7.0 - 11.0 FL LAB HEMETOLOGY METHOD 06/22/2024 7:49 AM [facility] LAB NRBC 0.0 <1.0 % LAB HEMETOLOGY METHOD 06/22/2024 7:49 AM [facility] LAB NRBC Absolute 0.00 <0.10 K/mcL LAB HEMETOLOGY METHOD 06/22/2024 7:49 AM [facility] LAB Neutrophils Relative 60.2 % LAB HEMETOLOGY METHOD 06/22/2024 7:49 AM [facility] LAB Lymphocytes Relative 23.1 % LAB HEMETOLOGY METHOD 06/22/2024 7:49 AM [facility] LAB Monocytes Relative 13.4 % LAB HEMETOLOGY METHOD 06/22/2024 7:49 AM [facility] LAB Eosinophils Relative 2.4 % LAB HEMETOLOGY METHOD 06/22/2024 7:49 AM [facility] LAB Basophils Relative 0.4 % LAB HEMETOLOGY METHOD 06/22/2024 7:49 AM [facility] LAB Immature Granulocytes Relative 0.5 % LAB HEMETOLOGY METHOD 06/22/2024 7:49 AM [facility] LAB Neutrophils Absolute 4.47 1.50 - 7.00 K/mcL LAB HEMETOLOGY METHOD 06/22/2024 7:49 AM [facility] LAB Lymphocytes Absolute 1.72 1.00 - 5.00 K/mcL LAB HEMETOLOGY METHOD 06/22/2024 7:49 AM [facility] LAB Monocytes Absolute 1.00 0.20 - 1.00 K/mcL LAB HEMETOLOGY METHOD 06/22/2024 7:49 AM [facility] LAB Eosinophils Absolute 0.18 0.00 - 0.50 K/mcL LAB HEMETOLOGY METHOD 06/22/2024 7:49 AM [facility] LAB Basophils Absolute 0.03 0.00 - 0.20 K/mcL LAB HEMETOLOGY METHOD 06/22/2024 7:49 AM [facility] LAB Immature Granulocytes Absolute 0.04(H) 0.00 - 0.03 K/mcL LAB HEMETOLOGY METHOD 06/22/2024 7:49 AM [facility] LAB Blood Venous blood specimen / Unknown 06/22/2024 6:38 AM EST 06/22/2024 7:36 AM EST Abisai Snow MD LAB BLOOD ORDERABLES [facility] LAB [address] [place] [address], documented in this encounter Visit Diagnoses Diagnosis Diffuse traumatic brain injury with loss of consciousness of unspecified duration, sequela (CMS/HCC) Diverticulitis of large intestine without perforation or abscess without bleeding documented in this encounter Care Teams Serology Teacher Relationship Specialty Start Date End Date Ronald Webster MD [address] [facility] [address] [address] PCP - General Heat And Frost Insulator 04/12/21 documented as of this encounter
--- OUTSIDE RECORDS SUMMARY | 2024-07-25 08:41 | XMS_ITS | Encounter Summary ---
Author Organization [facility] Address [address] [place] [address] Care Team Providers Care Pressure Supervisor Name Role Phone Ronald Webster MD Primary Care Provider +1- [phone] Encounter Details Date Type Department Care Team (Late st Contact Info) Description 07/24/2024 Lab Requisition [facility] - Main Lab [address] [place] [address] Abisai Vega MD [address] [place] [address] [address] [place] Hypothyroidism, unspecified; Schizophrenia, unspecified (CMS/HCC) Social History Tobacco Use [...] AM EST Hypothyroidism, unspecified Schizophrenia, unspecified (CMS/HCC) documented in this encounter Results * (ABNORMAL) CBC auto differential (07/24/2024 6:34 AM EST) WBC 8.2 4.8 - 10.8 K/[facility] LAB HEMETOLOGY METHOD 07/24/2024 8:58 AM EST [facility] LAB RBC 4.60 4.50 - 5.50 M/mcL LAB HEMETOLOGY METHOD 07/24/2024 8:58 AM [facility] LAB Hemoglobin 13.9 13.5 - 17.5 g/dL LAB HEMETOLOGY METHOD 07/24/2024 8:58 AM [facility] LAB Hematocrit 41.5(L) 42.0 - 54.0 % LAB HEMETOLOGY METHOD 07/24/2024 8:58 AM [facility] LAB MCV 90.2 79.0 - 98.0 FL LAB HEMETOLOGY METHOD 07/24/2024 8:58 AM [facility] LAB MCH 30.2 27.0 - 32.0 pcg LAB HEMETOLOGY METHOD 07/24/2024 8:58 AM [facility] LAB MCHC 33.5 32.0 - 37.0 g/dL LAB HEMETOLOGY METHOD 07/24/2024 8:58 AM [facility] LAB RDW 13.4 11.0 - 15.0 % LAB HEMETOLOGY METHOD 07/24/2024 8:58 AM [facility] LAB Platelets 239 130 - 400 K/mcL LAB HEMETOLOGY METHOD 07/24/2024 8:58 AM [facility] LAB MPV 9.5 7.0 - 11.0 FL LAB HEMETOLOGY METHOD 07/24/2024 8:58 AM [facility] LAB NRBC 0.0 <1.0 % LAB HEMETOLOGY METHOD 07/24/2024 8:58 AM [facility] LAB NRBC Absolute 0.00 <0.10 K/mcL LAB HEMETOLOGY METHOD 07/24/2024 8:58 AM [facility] LAB Neutrophils Relative 62.8 % LAB HEMETOLOGY METHOD 07/24/2024 8:58 AM [facility] LAB Lymphocytes Relative 20.1 % LAB HEMETOLOGY METHOD 07/24/2024 8:58 AM [facility] LAB Monocytes Relative 14.6 % LAB HEMETOLOGY METHOD 07/24/2024 8:[address] [facility] LAB Eosinophils Relative 1.7 % LAB HEMETOLOGY METHOD 07/24/2024 8:58 AM [facility] LAB Basophils Relative 0.4 % LAB HEMETOLOGY METHOD 07/24/2024 8:58 AM [facility] LAB Immature Granulocytes Relative 0.4 % LAB HEMETOLOGY METHOD 07/24/2024 8:[address] [facility] LAB Neutrophils Absolute 5.16 1.50 - 7.00 K/mcL LAB HEMETOLOGY METHOD 07/24/2024 8:58 AM [facility] LAB Lymphocytes Absolute 1.65 1.00 - 5.00 K/mcL LAB HEMETOLOGY METHOD 07/24/2024 8:58 AM [facility] LAB Monocytes Absolute 1.20(H) 0.20 - 1.00 K/mcL LAB HEMETOLOGY METHOD 07/24/2024 8:[address] [facility] LAB Eosinophils Absolute 0.14 0.00 - 0.50 K/mcL LAB HEMETOLOGY METHOD 07/24/2024 8:58 AM [facility] LAB Basophils Absolute 0.03 0.00 - 0.20 K/mcL LAB HEMETOLOGY METHOD 07/24/2024 8:58 AM [facility] LAB Immature Granulocytes Absolute 0.03 0.00 - 0.03 K/mcL LAB HEMETOLOGY METHOD 07/24/2024 8:58 AM [facility] LAB Blood Venous blood specimen / Unknown 07/24/2024 6:34 AM EST 07/24/2024 8:19 AM EST Abisai Vega MD LAB BLOOD ORDERABLES [facility] LAB [address] [place] [address], documented in this encounter Visit Diagnoses Diagnosis Hypothyroidism, unspecified Schizophrenia, unspecified (CMS/HCC) documented in this encounter Care Teams Pressure Supervisor Relationship Specialty Start Date End Date Ronald Webster MD [address] [address] PCP - General Fourdrinier Tender 04/12/21 documented as of this encounter
--- OUTSIDE RECORDS SUMMARY | 2024-07-25 08:41 | XMS_ITS | Encounter Summary ---
Author Organization [facility] Address [address] [place] [address] Care Team Providers Care Finish Repair Worker Name Role Phone Ronald Webster MD Primary Care Provider [phone]- [phone] Encounter Details Date Type Department Care Team (Late st Contact Info) Description 06/27/2024 Lab Requisition [facility] - Main Lab [address] [facility] [place] [address] Abisai Vega MD [address] [place] [address] [address] [place], [place] Diffuse traumatic brain injury with loss of consciousness of unspecified duration, sequela (CMS/HCC) Social History Tobacco Use Types Packs/Day [...] Diagnosis Comments CBC WITH AUTO DIFFERENTIAL Routine 06/27/2024 7:00 AM EST Diffuse traumatic brain injury with loss of consciousness of unspecified duration, sequela (CMS/HCC) CBC AND DIFFERENTIAL Routine 06/27/2024 7:00 AM EST Diffuse traumatic brain injury with loss of consciousness of unspecified duration, sequela (CMS/HCC) documented in this encounter Results * (ABNORMAL) CBC auto differential (06/27/2024 7:00 AM EST) WBC 7.6 4.8 - 10.8 K/[facility] LAB HEMETOLOGY METHOD 06/27/2024 8:07 AM EST [facility] LAB RBC 4.70 4.50 - 5.50 M/mcL LAB HEMETOLOGY METHOD 06/27/2024 8:07 AM [facility] LAB Hemoglobin 14.3 13.5 - 17.5 g/dL LAB HEMETOLOGY METHOD 06/27/2024 8:07 AM [facility] LAB Hematocrit 43.5 42.0 - 54.0 % LAB HEMETOLOGY METHOD 06/27/2024 8:07 AM [facility] LAB MCV 93.3 79.0 - 98.0 FL LAB HEMETOLOGY METHOD 06/27/2024 8:07 AM [facility] LAB MCH 30.7 27.0 - 32.0 pcg LAB HEMETOLOGY METHOD 06/27/2024 8:07 AM [facility] LAB MCHC 32.9 32.0 - 37.0 g/dL LAB HEMETOLOGY METHOD 06/27/2024 8:07 AM [facility] LAB RDW 13.1 11.0 - 15.0 % LAB HEMETOLOGY METHOD 06/27/2024 8:07 AM [facility] LAB Platelets 228 130 - 400 K/mcL LAB HEMETOLOGY METHOD 06/27/2024 8:07 AM [facility] LAB MPV 9.8 7.0 - 11.0 FL LAB HEMETOLOGY METHOD 06/27/2024 8:07 AM [facility] LAB NRBC 0.0 <1.0 % LAB HEMETOLOGY METHOD 06/27/2024 8:07 AM [facility] LAB NRBC Absolute 0.00 <0.10 K/mcL LAB HEMETOLOGY METHOD 06/27/2024 8:07 AM [facility] LAB Neutrophils Relative 62.2 % LAB HEMETOLOGY METHOD 06/27/2024 8:07 AM [facility] LAB Lymphocytes Relative 20.9 % LAB HEMETOLOGY METHOD 06/27/2024 8:07 AM [facility] LAB Monocytes Relative 13.6 % LAB HEMETOLOGY METHOD 06/27/2024 8:07 AM [facility] LAB Eosinophils Relative 2.2 % LAB HEMETOLOGY METHOD 06/27/2024 8:07 AM [facility] LAB Basophils Relative 0.7 % LAB HEMETOLOGY METHOD 06/27/2024 8:07 AM [facility] LAB Immature Granulocytes Relative 0.4 % LAB HEMETOLOGY METHOD 06/27/2024 8:07 AM [facility] LAB Neutrophils Absolute 4.75 1.50 - 7.00 K/mcL LAB HEMETOLOGY METHOD 06/27/2024 8:07 AM [facility] LAB Lymphocytes Absolute 1.60 1.00 - 5.00 K/mcL LAB HEMETOLOGY METHOD 06/27/2024 8:07 AM [facility] LAB Monocytes Absolute 1.04(H) 0.20 - 1.00 K/mcL LAB HEMETOLOGY METHOD 06/27/2024 8:07 AM [facility] LAB Eosinophils Absolute 0.17 0.00 - 0.50 K/mcL LAB HEMETOLOGY METHOD 06/27/2024 8:07 AM [facility] LAB Basophils Absolute 0.05 0.00 - 0.20 K/mcL LAB HEMETOLOGY METHOD 06/27/2024 8:07 AM [facility] LAB Immature Granulocytes Absolute 0.03 0.00 - 0.03 K/mcL LAB HEMETOLOGY METHOD 06/27/2024 8:07 AM [facility] LAB Blood Venous blood specimen / Unknown 06/27/2024 7:00 AM EST 06/27/2024 7:57 AM EST Abisai Vega MD LAB BLOOD ORDERABLES [facility] LAB [address] [place] [address], documented in this encounter Visit Diagnoses Diagnosis Diffuse traumatic brain injury with loss of consciousness of unspecified duration, sequela (CMS/HCC) documented in this encounter Care Teams Finish Repair Worker Relationship Specialty Start Date End Date Ronald Webster MD [address] [place] [address] PCP - General Trauma Nurse 04/12/21 documented as of this encounter
--- OUTSIDE RECORDS SUMMARY | 2024-07-25 08:41 | XMS_ITS | Encounter Summary ---
Author Organization [facility] Address [address] [place] [address] Care Team Providers Care Solvent Station Attendant Name Role Phone Ronald Webster MD Primary Care Provider +1- [phone] Encounter Details Date Type Department Care Team (Late st Contact Info) Description 06/29/2024 Lab Requisition [facility] - Main Lab 299 [facility] [place] [address] Abisai Vega MD [address] [place] [address] [address] [place], [place] Diffuse traumatic brain injury with loss [...] Procedure Name Priority Date/Time Associated Diagnosis Comments LIPID PANEL WITH REFLEX TO DIRECT LDL Routine 06/29/2024 6:36 AM EST Diffuse traumatic brain injury with loss of consciousness of unspecified duration, sequela (CMS/HCC) PROSTATE SPECIFIC ANTIGEN DIAGNOSTIC Routine 06/29/2024 6:36 AM EST Diffuse traumatic brain injury with loss of consciousness of unspecified duration, sequela (CMS/HCC) THYROXINE FREE Routine 06/29/2024 6:36 AM EST Diffuse traumatic brain injury with loss of consciousness of unspecified duration, sequela (CMS/HCC) documented in this encounter Results * Prostate specific antigen diagnostic (06/29/2024 6:36 AM EST) [facility] PSA 0.93 0.00 - 4.00 ng/mL LAB CHEMISTRY METHOD 06/29/2024 9:39 AM EST [facility] Blood Venous blood specimen / Unknown 06/29/2024 6:36 AM EST 06/29/2024 7:23 AM EST Narrative [facility] - 06/29/2024 9:39 AM EST The Siemens Advia Centaur Chemiluminescent Immunoassay is used. Results obtained with different assay methods or kits cannot be used interchangeably. Results cannot be interpreted as absolute evidence of the presence or absence of malignant disease. Abisai Vega MD LAB BLOOD ORDERABLES Performing Organization Address [facility]/ZIP Co de Phone Number [facility] LAB [address] [place] [address], * Thyroxine free (06/29/2024 6:36 AM EST) [facility] Free T4 1.30 0.70 - 1.80 ng/dL LAB CHEMISTRY METHOD 06/29/2024 8:38 AM EST [facility] LAB Blood Venous blood specimen / Unknown 06/29/2024 6:36 AM EST 06/29/2024 7:23 AM EST Abisai Vega MD LAB BLOOD ORDERABLES Performing Organization Address City/[facility]/ZIP Co de Phone Number [facility] LAB [address] [place] [address], [place] [phone] * (ABNORMAL) Lipid panel with reflex to direct LDL (06/29/2024 6:36 AM EST) [facility] Cholesterol 150 0 - 200 mg/dL LAB CHEMISTRY METHOD 06/29/2024 8:02 AM EST [facility] LAB Triglycerides 188(H) 0 - 150 mg/dL LAB CHEMISTRY METHOD 06/29/2024 8:02 AM EST [facility] HDL 39(L) >=40 mg/dL LAB CHEMISTRY METHOD 06/29/2024 8:02 AM EST [facility] LDL Calculated 73 0 - 100 mg/dL LAB CHEMISTRY METHOD 06/29/2024 8:02 AM EST [facility] LAB VLDL Cholesterol Naun 37.6 mg/dL LAB CHEMISTRY METHOD 06/29/2024 8:02 AM [facility] LAB Non HDL Chol. (LDL+VLDL) 111 <145 mg/dL LAB CHEMISTRY METHOD 06/29/2024 8:02 AM [facility] LAB Chol/HDL Ratio 3.8 0.0 - 4.4 LAB CHEMISTRY METHOD 06/29/2024 8:02 AM [facility] LAB Blood Venous blood specimen / Unknown 06/29/2024 6:36 AM EST 06/29/2024 7:23 AM EST Abisai Vega MD LAB BLOOD ORDERABLES [facility] LAB [address] [place] [address], documented in this encounter Visit Diagnoses Diagnosis Diffuse traumatic brain injury with loss of consciousness of unspecified duration, sequela (CMS/HCC) documented in this encounter Care Teams Solvent Station Attendant Relationship Specialty Start Date End Date Ronald Webster MD [address] [place] [address] PCP - General Fitter Up 04/12/21 documented as of this encounter
== END ==
LOC: HO.SSS 08:18
PROVIDERS: PCP Hospitalist; Visit Provider Internal Medicine Gastroenterology
DX: Z12.11 Encounter for screening for malignant neoplasm of colon (principal); Z53.8 Procedure and treatment not carried out for other reasons; Z87.820 Personal history of traumatic brain injury

== ENCOUNTER 2024-11-16 22:28 | Inpatient (IN) | payer MEDICAID, SELFPAY ==
--- NOTE | ~2024-11-16 | CT_ITS ---
CLINICAL HISTORY: possible aspiration CT chest without contrast Comparison: None Findings: Heart size is normal. There is no pericardial effusion. Thoracic aorta is normal in diameter. There is a moderate sized hiatal hernia. There are no enlarged lymph nodes. There is mild bilateral gynecomastia. There is minimal dependent atelectasis. There is minimal scarring in the right upper lobe. Lungs appear otherwise clear. Trachea and central bronchi are widely patent. There is no acute fracture or suspicious lytic or sclerotic lesion. Limited images of the upper abdomen demonstrate no acute findings. There are couple bilateral renal cysts. IMPRESSION: No acute abnormality in the chest. This document has been electronically signed by: Navi Plummer MD on 11/17/2024 00:10:07
--- NOTE | ~2024-11-16 | CT_ITS ---
CLINICAL HISTORY: found unresponsive CT cervical spine without contrast Comparison: None Findings: Study is limited by motion artifact. The alignment of the cervical spine is normal. No fracture is seen. There is multilevel mild degenerative disc disease. There are multilevel mild and moderate neuroforaminal stenoses due to facet and uncovertebral joint osteoarthritis. IMPRESSION: Study is limited by motion artifact. No acute findings identified. This document has been electronically signed by: Navi Plummer MD on 11/16/2024 23:50:20
--- NOTE | ~2024-11-16 | CT_ITS ---
CLINICAL HISTORY: found on floor unresponsive CT head without contrast Comparison: None Findings: Study is mildly limited by streak artifact. There is no acute intracranial hemorrhage. Ventricles are within normal limits in size. No mass effect or midline shift is present. The buchanan-white matter differentiation appears normal. There is generalized cerebral atrophy. There is a small chronic infarct in the left temporal lobe. The visualized portions of the orbits, paranasal sinuses, and mastoids are unremarkable. No fractures are identified. IMPRESSION: 1. No acute intracranial abnormality. 2. Small chronic left temporal lobe infarct. This document has been electronically signed by: Navi Plummer MD on 11/16/2024 23:58:27
--- NOTE | 2024-11-16 22:37 | ECG_ITS ---
Test Reason : UNRESPONSIVE Blood Pressure : */* mmHG Vent. Rate : 95 BPM Atrial Rate : 95 BPM P-R Int : 184 ms QRS Dur : 88 ms QT Int : 390 ms P-R-T Axes : 58 41 36 degrees QTcB Int : 490 ms Sinus rhythm with occasional Premature ventricular complexes Prolonged QT Abnormal ECG No previous ECGs available Referred By: Leatha Wiley Electronically Signed By: Compa Gallegos
--- NOTE | 2024-11-16 22:40 | ED_ITS ---
HPI - General Adult General Chief complaint: Altered Mental Status Stated complaint: found unresponsive, soiled, hypotensive, alfred Time Seen by Provider: 11/16/24 22:30 Source: EMS Mode of arrival: EMS Limitations: altered mental status History of Present Illness ED Provider: Dr. Leatha Wiley HPI narrative: Patient comes to the emergency room via ambulance from [facility]. According to EMS, the patient was found unresponsive on the floor. according to the staff, he was covered in urine and vomit. The last time that the patient was seen well was probably 2 hours prior to arrival. According to the staff, the patient at baseline is alert, oriented, can interact, does not use oxygen. On arrival, patient only responds to painful stimuli. Patient is unable to give us any history. Per patient's documents, he is full code, he is not on any blood thinners. Related Data Home Medications ?Medication ?Instructions ?Recorded ?Confirmed acetaminophen 325 mg tablet 325 mg PO QID PRN Pain 03/09/23 10/29/23 benztropine 1 mg tablet 1 mg PO BEDTIME 03/09/23 10/29/23 clonazepam 0.5 mg tablet 0.5 mg PO BID 03/09/23 03/22/24 ibuprofen 600 mg tablet 600 mg PO Q6H PRN Back Pain 03/09/23 03/22/24 lactulose 10 gram/15 mL oral 30 ml PO BID 03/09/23 03/22/24 solution propranolol 20 mg tablet 20 mg PO DAILY 03/09/23 10/29/23 divalproex 500 mg tablet,extended 500 mg PO BEDTIME 06/14/23 03/22/24 release 24 hr docusate sodium 100 mg capsule 100 mg PO DAILY 06/14/23 03/22/24 guaifenesin 200 mg/5 mL oral liquid 400 mg PO Q4H PRN Congestion 06/14/23 03/22/24 levothyroxine 50 mcg tablet 50 mcg PO DAILY 06/14/23 10/29/23 polyethylene glycol 3350 17 238 g PO ONCE 06/14/23 03/22/24 gram/dose oral powder (Miralax) sennosides 8.6 mg tablet (senna) 8.6 mg PO DAILY PRN Constipation 06/14/23 03/22/24 sodium phosphates 19 gram-7 118 ml SD DAILY PRN Constipation 06/14/23 03/22/24 gram/118 mL enema (Fleet Enema) tamsulosin 0.4 mg capsule 0.4 mg PO BEDTIME 06/14/23 03/22/24 metoprolol succinate 25 mg 25 mg PO DAILY 11/15/23 03/22/24 tablet,extended release 24 hr clozapine 100 mg tablet 100 mg PO DAILY 03/22/24 03/22/24 clozapine 50 mg tablet 50 mg PO BEDTIME 03/22/24 lithium carbonate 450 mg 450 mg PO DAILY 03/22/24 tablet,extended release quetiapine 50 mg tablet,extended 50 mg PO BEDTIME 03/22/24 release 24 hr Previous Rx's ?Medication ?Instructions ?Recorded bisacodyl 5 mg tablet,delayed 10 mg (2 x 5 mg) PO ONCE 1 day #2 03/09/23 release (Dulcolax (bisacodyl)) tabs bisacodyl 5 mg tablet,delayed 10 mg (2 x 5 mg) PO BEDTIME #16 03/22/24 release (Dulcolax (bisacodyl)) tabs oxycodone-acetaminophen 5 mg-325 1 tab PO TID PRN pain #10 tabs 03/22/24 mg tablet (Percocet) polyethylene glycol 3350 17 238 g PO ONCE #238 grams 03/22/24 gram/dose oral powder (Miralax) bisacodyl 5 mg tablet,delayed 20 mg (4 x 5 mg) PO BEDTIME 11/02/24 release (Dulcolax (bisacodyl)) colonoscopy prep #16 tabs polyethylene glycol 3350 17 238 g PO ONCE 1 day #238 grams 11/02/24 gram/dose oral powder (Miralax) Allergies Allergy/AdvReac Type Severity Reaction Status Date / Time No Known Allergies Allergy Verified 11/16/24 23:00 Review of Systems 2 Review of Systems: Yes Unobtainable due to mental condition PMFSH Past Medical History Medical History Pain at surgical site Resides in care home facility Left inguinal hernia Right groin mass Tubular adenoma Personal history of COVID-19 Presbyopia Dysphagia Zygomatic fracture, left side, sequela Zygomatic fracture, right side, sequela Opioid abuse Insomnia Constipation Traumatic subdural hematoma with loss of consciousness BPH (benign prostatic hyperplasia) Hypothyroidism (acquired) Schizophrenia Diffuse traumatic brain injury Surgical History Hx of left inguinal hernia repair (11/02/23) Hx of colonoscopy Social History Social History Household Members: Other Household Members Other:: [facility] Housing Other:: as above noted Unable to assess alcohol history related to: Unable to respond Alcohol intake: current Alcohol intake frequency: former alcohol drinker Comment: counts correct Patient Tobacco Use Status: Current everyday Tobacco user Tobacco use type: Cigarette Cigarette Packs Per Day: 0.5 Cigarettes Per Day: 4 Use of substances other than those prescribed or required for medical reasons: Unable to respond Advance Directives Date on File: 10/29/23 Do you have a plan to hurt others: No Plan Physical Exam ED Vital Signs: Vital Signs - 24 hr 11/16/24 22:57 11/16/24 23:37 11/17/24 00:09 Temperature 95.8 F L Pulse Rate 92 90 87 Respiratory Rate 16 22 H 19 Blood Pressure 116/80 135/79 146/93 H Pulse Oximetry 95 95 97 Oxygen Delivery Method Room Air Room Air Room Air BMI result Body Mass Index 31.5 Const Other: Appearance: very altered, loudly snoring, covered in vomit Eyes: Pupils equal, round and reactive to light. ENT: Pharynx normal. Neck: Normal inspection. Neck supple. No lymph nodes noted. No crepitus CVS: Normal heart rate and rhythm. Pulses normal. Normal S1 and S2 Respiratory: No respiratory distress. Breath sounds normal. No Wheezing. No rales Abdomen: Soft and nontender. No rigidity. No distention. Skin: Skin whom to touch, dry. Normal skin color. Normal skin turgor. Extremities: No lower extremity edema. No Lacerations. No Rash Neuro: Unable to participating cranial nerve assessment. Patient reaches out to painful stimuli Psych: altered Course Course Course Narrative: patient is being prophylactically given IV fluids based on ideal weight of 55 kg, patient is obese. Also, empirically patient being treated with Zosyn, seems that the patient may have aspirated, patient was found unresponsive on the floor covered in vomit slowly, patient is waking up a little bit more. Moving extremities, opening and closing eyes. Medications Administered Discontinued Medications Generic Name Dose Route Start Last Admin Trade Name Belen PRN Reason Stop Dose Admin Sodium Chloride 2,000 mls @ 999 mls/hr 11/16/24 22:39 11/16/24 23:35 Ns IVCONT 11/17/24 00:39 999 mls/hr .Q2H1M ONE Administration Piperacillin Sod/Tazobactam 50 mls @ 100 mls/hr 11/16/24 22:41 11/17/24 00:07 Sod 3.375 gm/ Sodium Chloride IV 11/16/24 23:10 Infused ONCE ONE Infusion Medical Decision Making Medical Decision Making [facility] Narrative: my interpretation of EKG: sinus rhythm, heart rate 95, no ST segment depression or elevation, no T-wave inversion, QTC 490 My interpretation of labs: Patient's white blood cell count 9.4, hemoglobin 13.4, hematocrit 39.4, platelets 239, venous blood gases did not show any significant abnormality. TSH normal, troponin BNP normal . Serology test positive for COVID. Patient's oxygen saturation 97% on room air. urinalysis positive for UTI, patient does not have a Lopez catheter CT scans of the head , cervical spine and chest did not show any acute abnormality. Patient being admitted for COVID encephalopathy. Differential Diagnosis Differential Diagnoses: The differential diagnosis associated with the presentation includes ( UTI, community-acquired pneumonia, aspiration pneumonia, COVID, RSV, influenza, intracranial bleed) Admission/Observation Consideration of admission/observation: Escalation of care including admission/observation considered Consult Healthcare Provider Management of the patient was discussed with: Hospitalist Lab Data [facility] Lab Attestation statement: I reviewed the patient's lab results. 11/16/24 22:47 11/17/24 00:13 Labs: Lab Results 11/16/24 11/16/24 11/16/24 Range/Units 22:47 22:54 22:57 WBC 9.4 (4.8-10.8) X10*3/uL RBC 4.43 L (4.60-5.80) X10*6/uL Hgb 13.4 L (14.0-18.0) g/dl Hct 39.4 L (42.0-52.0) % MCV 88.9 (80.0-98.0) fL MCH 30.2 (27.0-33.0) pg MCHC 34.0 (31.0-36.0) g/dl RDW 14.2 (11.0-16.0) % Plt Count 239 (160-400) X10*3/uL MPV 9.4 (9.4-12.4) fL Immature Gran % (Auto) 0.2 (0.0-0.4) % Neut % (Auto) 71.4 (45-73) % Lymph % (Auto) 15.5 L (20-40) % [place] % (Auto) 11.9 H (2-11) % Eos % (Auto) 0.7 (0-4) % Baso % (Auto) 0.3 (0-2) % Lymph # (Auto) 1.5 (1.2-4.9) X10*3/uL [place] # (Auto) 1.1 (0.1-1.2) X10*3/uL Eos # (Auto) 0.1 (0.0-0.4) X10*3/uL Baso # (Auto) 0.0 (0.0-0.2) X10*3/uL Abs Immat Gran (auto) 0.02 (0.00-0.03) X10*3/uL Absolute Neuts (auto) 6.7 (2.0-8.3) x10*3/uL Absolute Nucleated RBC 0.000 (0.0-0.012) X10*3/uL Nucleated RBC % (auto) 0.0 (0.0-0.2) /100WBC VBG pH 7.41 (7.32-7.43) VBG pCO2 42 mmHg VBG pO2 49 mmHg VBG HCO3 27 H (22-26) mmol/L VBG O2 Saturation 80.0 % VBG Base Excess 2.2 mmol/L Sodium (135-145) mmol/L Potassium (3.3-5.1) mmol/L Chloride (96-108) mmol/L Carbon Dioxide (22-29) mmol/L Anion Gap (12-20) BUN (9-16) mg/dL Creatinine (0.5-1.4) mg/dL Estim Creat Clear Calc Estimated GFR Random Glucose (60-115) mg/dL Lactic Acid 1.8 (0.5-2.0) mmol/L Calcium (8.4-10.2) mg/dL Magnesium (1.6-2.6) mg/dL Total Bilirubin (0.0-1.0) mg/dL Direct Bilirubin (0.0-0.5) mg/dL AST (5-37) U/L ALT (0-40) U/L Alkaline Phosphatase (39-117) U/L Troponin I High Sens < 2.7 (<3.5-35.0) ng/L B-Natriuretic Peptide 15 (<100) pg/mL Total Protein (6.5-8.0) g/dL Albumin (3.5-5.0) g/dL Lipase (8-78) U/L TSH 1.79 (0.32-4.0) uIU/mL Urine Color Urine Appearance Urine pH (5.0-9.0) Ur Specific Thida (1.005-1.025) Urine Protein (Neg-Trace) mg/dL Urine Glucose (UA) (Negative) mg/dL Urine Ketones (Negative) mg/dL Urine Blood (Negative) Urine Nitrite (Negative) Ur Leukocyte Esterase (Negative) Urine RBC (0-2) /HPF Urine WBC (0-5) /HPF Ur Squamous Epith Cells (0-2) /HPF Urine Bacteria (None Seen) Hyaline Casts (0-2) /LPF Urine Opiates Screen (Not Detect) Ur Buprenorphine Scrn (Not Detect) ng/mL Ur Oxycodone Screen (Not Detect) ng/mL Urine Methadone Screen (Not Detect) ng/mL Urine Fentanyl Screen (Not Detect) Ur Barbiturates Screen (Not Detect) Ur Phencyclidine Scrn (Not Detect) Ur Amphetamines Screen (Not Detect) U Benzodiazepines Scrn (Not Detect) Urine Cocaine Screen (Not Detect) U Marijuana (THC) Screen (Not Detect) Influenza Type A (PCR) NEGATIVE (Negative) Influenza Type B (PCR) NEGATIVE (Negative) RSV RNA Qual (PCR) NEGATIVE (Negative) SARS-CoV-2 RNA (RT-PCR) POSITIVE A (Negative) 11/17/24 11/17/24 Range/Units 00:00 00:13 WBC (4.8-10.8) X10*3/uL RBC (4.60-5.80) X10*6/uL Hgb (14.0-18.0) g/dl Hct (42.0-52.0) % MCV (80.0-98.0) fL MCH (27.0-33.0) pg MCHC (31.0-36.0) g/dl RDW (11.0-16.0) % Plt Count (160-400) X10*3/uL MPV (9.4-12.4) fL Immature Gran % (Auto) (0.0-0.4) % Neut % (Auto) (45-73) % Lymph % (Auto) (20-40) % Bossier % (Auto) (2-11) % Eos % (Auto) (0-4) % Baso % (Auto) (0-2) % Lymph # (Auto) (1.2-4.9) X10*3/uL Bossier # (Auto) (0.1-1.2) X10*3/uL Eos # (Auto) (0.0-0.4) X10*3/uL Baso # (Auto) (0.0-0.2) X10*3/uL Abs Immat Gran (auto) (0.00-0.03) X10*3/uL Absolute Neuts (auto) (2.0-8.3) x10*3/uL Absolute Nucleated RBC (0.0-0.012) X10*3/uL Nucleated RBC % (auto) (0.0-0.2) /100WBC VBG pH (7.32-7.43) VBG pCO2 mmHg VBG pO2 mmHg VBG HCO3 (22-26) mmol/L VBG O2 Saturation % VBG Base Excess mmol/L Sodium 142 (135-145) mmol/L Potassium 3.5 (3.3-5.1) mmol/L Chloride 111 H (96-108) mmol/L Carbon Dioxide 22 (22-29) mmol/L Anion Gap 13 (12-20) BUN 12 (9-16) mg/dL Creatinine 0.59 (0.5-1.4) mg/dL Estim Creat Clear Calc 145.1 Estimated GFR > 60 Random Glucose 120 H (60-115) mg/dL Lactic Acid (0.5-2.0) mmol/L Calcium 8.6 (8.4-10.2) mg/dL Magnesium 2.0 (1.6-2.6) mg/dL Total Bilirubin 0.5 (0.0-1.0) mg/dL Direct Bilirubin 0.2 (0.0-0.5) mg/dL AST 24 (5-37) U/L ALT 15 (0-40) U/L Alkaline Phosphatase 84 (39-117) U/L Troponin I High Sens (<3.5-35.0) ng/L B-Natriuretic Peptide (<100) pg/mL Total Protein 6.0 L (6.5-8.0) g/dL Albumin 3.9 (3.5-5.0) g/dL Lipase 9 (8-78) U/L TSH (0.32-4.0) uIU/mL Urine Color RED Urine Appearance Turbid Urine pH 5.0 (5.0-9.0) Ur Specific Thida 1.020 (1.005-1.025) Urine Protein 300 (3+) H (Neg-Trace) mg/dL Urine Glucose (UA) Negative (Negative) mg/dL Urine Ketones Trace (Negative) mg/dL Urine Blood Large (3+) H (Negative) Urine Nitrite Positive H (Negative) Ur Leukocyte Esterase Small (1+) H (Negative) Urine RBC >20 H (0-2) /HPF Urine WBC 6-10 (0-5) /HPF Ur Squamous Epith Cells 0-2 (0-2) /HPF Urine Bacteria Trace (None Seen) Hyaline Casts 0-2 (0-2) /LPF Urine Opiates Screen Not Detected (Not Detect) Ur Buprenorphine Scrn Not Detected (Not Detect) ng/mL Ur Oxycodone Screen Not Detected (Not Detect) ng/mL Urine Methadone Screen Not Detected (Not Detect) ng/mL Urine Fentanyl Screen Not Detected (Not Detect) Ur Barbiturates Screen Not Detected (Not Detect) Ur Phencyclidine Scrn Not Detected (Not Detect) Ur Amphetamines Screen Not Detected (Not Detect) U Benzodiazepines Scrn Not Detected (Not Detect) Urine Cocaine Screen Not Detected (Not Detect) U Marijuana (THC) Screen Not Detected (Not Detect) Influenza Type A (PCR) (Negative) Influenza Type B (PCR) (Negative) RSV RNA Qual (PCR) (Negative) SARS-CoV-2 RNA (RT-PCR) (Negative) Independent Interpretation I performed an independent interpretation of an: EKG and CT Scan Radiology Impression Discussion of test interpretation with radiology: I have reviewed the radiologist's reading. Radiologist Impression: 1. No acute intracranial abnormality. 2. Small chronic left temporal lobe infarct. Study is limited by motion artifact. The alignment of the cervical spine is normal. No fracture is seen. There is multilevel mild degenerative disc disease. There are multilevel mild and moderate neuroforaminal stenoses due to facet and uncovertebral joint osteoarthritis. No acute abnormality in the chest. Critical Care Time Critical Care Time Critical Care Time: Yes Total Critical Care Time: 60 Attestation: I have personally provided critical care time. Time includes review of lab data, radiology results, discussion with consultants, and monitoring for potential decompensation. Intervention performed as documented. Discharge Plan Discharge Clinical Impression: Acute UTI, COVID-19, Encephalopathy acute Patient Disposition: Admitted As Inpatient Print Language: Indian
[2024-11-16 22:56] LABS: MANUAL DIFF FLAG NO
[2024-11-16 22:57] VITALS: BP 116/80; BP 162/124; PULSE 70; PULSE 92; RESP 16; O2SAT 92; O2SAT 95; BMI 31.5
[2024-11-16 22:58] LABS: Basophils Percent Auto 0.3 % (0-2); Eosinophils Absolute Auto 0.1 X10*3/uL (0.0-0.4); Eosinophils Percent Auto 0.7 % (0-4); Hematocrit 39.4 % (42.0-52.0); Hemoglobin 13.4 g/dl (14.0-18.0); Imm Gran Abs Auto 0.02 X10*3/uL (0.00-0.03); Imm Gran Pct Auto 0.2 % (0.0-0.4); Lymphocytes Absolute Auto 1.5 X10*3/uL (1.2-4.9); Lymphocytes Percent Auto 15.5 % (20-40); Mean Corpuscular Hemoglobin 30.2 pg (27.0-33.0); Mean Corpuscular Volume 88.9 fL (80.0-98.0); Mean Platelet Volume 9.4 fL (9.4-12.4); Monocytes Absolute Auto 1.1 X10*3/uL (0.1-1.2); Monocytes Percent Auto 11.9 % (2-11); Neutrophils Absolute Auto 6.7 x10*3/uL (2.0-8.3); Neutrophils Percent Auto 71.4 % (45-73); Platelet Count 239 X10*3/uL (160-400); Red Blood Count 4.43 X10*6/uL (4.60-5.80); Red Cell Distribution Width 14.2 % (11.0-16.0); White Blood Count 9.4 X10*3/uL (4.8-10.8)
[2024-11-16 23:00] LABS: Venous Blood Gas Refer to POC result
--- NOTE | 2024-11-16 23:00 | PC.NURSE ---
pt in CT scan at this time
[2024-11-16 23:01] LABS: VBG Base Excess 2.2 mmol/L; VBG HCO3 27 mmol/L (22-26); VBG pCO2 42 mmHg; VBG pH 7.41 (7.32-7.43); VBG pO2 49 mmHg
[2024-11-16 23:15] LABS: Lactic Acid 1.8 mmol/L (0.5-2.0)
[2024-11-16 23:19] LABS: B Type Natriuretic Peptide 15 pg/mL (<100); Troponin-I High Sensitivity < 2.7 ng/L (<3.5-35.0)
[2024-11-16 23:35] LABS: Influenza A PCR NEGATIVE (Negative); Influenza B PCR NEGATIVE (Negative); Resp Syncy Virus RNA Qual PCR NEGATIVE (Negative); SARS COV2 PCR INHOUSE POSITIVE (Negative)
[2024-11-16] MEDS: Piperacillin Sodium/Tazobactam 3.375 GM in 0.9 % Sodium Chloride 50 ML IV (23:35)
[2024-11-16] MEDS: 0.9 % Sodium Chloride 2,000 ML 999 ML IVCONT (23:35)
[2024-11-16 23:37] VITALS: BP 135/79; PULSE 90; RESP 22; TEMP 35.4; O2SAT 95
[2024-11-16 23:42] LABS: TSH reflex Free T4 1.79 uIU/mL (0.32-4.0)
[2024-11-17] VITALS (12 sets, daily range): BP systolic 114–157; BP diastolic 65–101; PULSE 74–103; RESP 15–20; TEMP 36.1–37.1; O2SAT 94–98
[2024-11-17 00:20] LABS: Appearance Urine Turbid; Color Urine RED; Glucose Urine UA Negative (Negative); Leukocyte Esterase Urine Small (1+) (Negative); Nitrite Urine Positive (Negative); UMIC TRIGGER UACC YES; Urine Blood Large (3+) (Negative); Urine Ketones Trace mg/dL (Negative); Urine Protein 300 (3+) mg/dL (Neg-Trace)
[2024-11-17 00:42] LABS: Bacteria Urine Trace (None Seen); Hyaline Casts Urine 0-2 /LPF (0-2); RBC Urine >20 /HPF (0-2); Squamous Epithelial Cell Urine 0-2 /HPF (0-2); UACC Culture Trigger YES
[2024-11-17 00:44] LABS: Amphetamine Screen Urine Not Detected (Not Detect); Barbiturates, Urine Not Detected (Not Detect); Benzodiazepines Screen Urine Not Detected (Not Detect); Buprenorphine Scr Not Detected (Not Detect); Cannabinoid Screen Urine Not Detected (Not Detect); Cocaine Screen Urine Not Detected (Not Detect); Fentanyl, urine Not Detected (Not Detect); Methadone Screen, Urine Not Detected (Not Detect); Opiate Screen Urine Not Detected (Not Detect); Oxycodone Screen Urine Not Detected (Not Detect); Phencyclidine Screen Urine Not Detected (Not Detect)
[2024-11-17 00:45] LABS: Alanine Aminotransferase 15 U/L (0-40); Albumin Level 3.9 g/dL (3.5-5.0); Alkaline Phosphatase 84 U/L (39-117); Anion Gap 13 (12-20); Aspartate Amino Transferase 24 U/L (5-37); Bilirubin Direct 0.2 mg/dL (0.0-0.5); Bilirubin Total 0.5 mg/dL (0.0-1.0); Blood Urea Nitrogen 12 mg/dL (9-16); Calcium 8.6 mg/dL (8.4-10.2); Carbon Dioxide 22 mmol/L (22-29); Chloride 111 mmol/L (96-108); Creatinine Clr Calc Pharmacy 145.1; Estimated Glomerular Filt Rate > 60; Glucose Random 120 mg/dL (60-115); Lipase 9 U/L (8-78); Potassium 3.5 mmol/L (3.3-5.1); Sodium 142 mmol/L (135-145)
--- NOTE | 2024-11-17 05:23 | PC.NURSE ---
med rec confirmed using list provided from [facility]
--- NOTE | 2024-11-17 05:46 | PM.IMHP ---
History of Present Illness Date of Service: 11/17/24 Chief Complaint: fall This is a 59-year-old male with pertinent history of TBI, schizophrenia, hypothyroidism, dysphagia, BPH, mixed hyperlipidemia, history of opioid use disorder who was brought to the emergency department from [facility] for evaluation of unwitnessed fall. Unable to obtain history from the patient. History obtained from ER provider and chart review. At the time of my evaluation, patient is only eye opening to verbal stimulus and says his name but falls back asleep. Is disoriented to time and place. Does not know why he is in the hospital. Patient was found on the ground by staff at outside facility covered in emesis. Patient was unable to answer questions at the time of EMS arrival. At baseline, patient is alert, oriented and interactive. Unable to obtain review of systems. In the emergency department, patient tested positive for COVID-19 infection and urine concerning for UTI. Review of Systems Review of Systems: Yes Unobtainable due to mental status PMFSH Medical History Pain at surgical site Resides in half-way facility Left inguinal hernia Right groin mass Tubular adenoma Personal history of COVID-19 Presbyopia Dysphagia Zygomatic fracture, left side, sequela Zygomatic fracture, right side, sequela Opioid abuse Insomnia Constipation Traumatic subdural hematoma with loss of consciousness BPH (benign prostatic hyperplasia) Hypothyroidism (acquired) Schizophrenia Diffuse traumatic brain injury Surgical History Hx of left inguinal hernia repair (11/02/23) Hx of colonoscopy Social History Household Members: Other Household Members Other:: [facility] Housing Other:: as above noted Unable to assess alcohol history related to: Unable to respond Alcohol intake: current Alcohol intake frequency: former alcohol drinker Comment: counts correct Patient Tobacco Use Status: Tobacco use Unknown Tobacco use type: Cigarette Cigarette Packs Per Day: 0.5 Cigarettes Per Day: 4 Use of substances other than those prescribed or required for medical reasons: Unable to respond Advance Directives: Yes Advance Directives Information Provided: Yes Advance Directives on File: No Advance Directives Date on File: 10/29/23 Do you have a plan to hurt others: No Plan Nutrition Risks: No Nutritional Risk Meds Allergies Allergy/AdvReac Type Severity Reaction Status Date / Time No Known Allergies Allergy Verified 11/16/24 23:00 Home Medications ?Medication ?Instructions ?Recorded ?Confirmed ?Last Taken ?Type acetaminophen 325 mg tablet 325 mg PO QID PRN Pain 03/09/23 11/17/24 Unknown History benztropine 1 mg tablet 1 mg PO BEDTIME 03/09/23 11/17/24 Unknown History clonazepam 0.5 mg tablet 0.5 mg PO BID 03/09/23 11/17/24 Unknown History ibuprofen 600 mg tablet 600 mg PO Q6H PRN Back Pain 03/09/23 11/17/24 Unknown History lactulose 10 gram/15 mL oral 30 ml PO BID 03/09/23 11/17/24 Unknown History solution propranolol 20 mg tablet 20 mg PO DAILY 03/09/23 10/29/23 Unknown History divalproex 500 mg tablet,extended 500 mg PO 2XD 06/14/23 11/17/24 Unknown History release 24 hr docusate sodium 100 mg capsule 100 mg PO DAILY 06/14/23 11/17/24 Unknown History guaifenesin 200 mg/5 mL oral liquid 400 mg PO Q4H PRN Congestion 06/14/23 11/17/24 Unknown History levothyroxine 50 mcg tablet 50 mcg PO DAILY 06/14/23 11/17/24 Unknown History polyethylene glycol 3350 17 238 g PO ONCE 06/14/23 11/17/24 Unknown History gram/dose oral powder (Miralax) sennosides 8.6 mg tablet (senna) 8.6 mg PO DAILY PRN Constipation 06/14/23 11/17/24 Unknown History sodium phosphates 19 gram-7 118 ml ID DAILY PRN Constipation 06/14/23 11/17/24 Unknown History gram/118 mL enema (Fleet Enema) tamsulosin 0.4 mg capsule 0.4 mg PO BEDTIME 06/14/23 11/17/24 Unknown History metoprolol succinate 25 mg 25 mg PO DAILY 11/15/23 11/17/24 Unknown History tablet,extended release 24 hr clozapine 100 mg tablet 100 mg PO DAILY 03/22/24 03/22/24 Unknown History clozapine 50 mg tablet 50 mg PO BEDTIME 03/22/24 Unknown History lithium carbonate 450 mg 450 mg PO DAILY 03/22/24 Unknown History tablet,extended release quetiapine 50 mg tablet,extended 50 mg PO BEDTIME 03/22/24 Unknown History release 24 hr Physical Exam Vital Signs and Narrative: Vital Signs: Last Vital Signs Temp 98.7 F 11/17/24 05:42 Pulse 85 11/17/24 05:42 Resp 20 11/17/24 05:42 BP 157/101 H 11/17/24 05:42 Pulse Ox 96 11/17/24 05:42 O2 Del Method Room Air 11/17/24 05:42 BMI result Body Mass Index 31.5 Middle-aged male lying in bed in no distress Neck supple Regular rate and rhythm, S1-S2 heard Regular breath sounds bilaterally, no wheezing or crackles appreciated Abdomen soft nontender, no guarding, no rigidity Patient is drowsy and awakens to verbal stimulus, says his name, disoriented to place and time, not following commands Psych: Lethargic Results Labs 11/16/24 22:47 11/17/24 00:13 Labs: Laboratory Results - last 24 hr 11/16/24 11/16/24 11/16/24 22:47 22:54 22:57 MCV 88.9 MCH 30.2 MCHC 34.0 RDW 14.2 Plt Count 239 MPV 9.4 Immature Gran % (Auto) 0.2 Neut % (Auto) 71.4 Lymph % (Auto) 15.5 L [place] % (Auto) 11.9 H Eos % (Auto) 0.7 Baso % (Auto) 0.3 Lymph # (Auto) 1.5 [place] # (Auto) 1.1 Eos # (Auto) 0.1 Baso # (Auto) 0.0 Abs Immat Gran (auto) 0.02 Absolute Neuts (auto) 6.7 Absolute Nucleated RBC 0.000 Nucleated RBC % (auto) 0.0 VBG pH 7.41 VBG pCO2 42 VBG pO2 49 VBG HCO3 27 H VBG O2 Saturation 80.0 VBG Base Excess 2.2 Anion Gap Estim Creat Clear Calc Estimated GFR Random Glucose Lactic Acid 1.8 Calcium Magnesium Total Bilirubin Direct Bilirubin AST ALT Alkaline Phosphatase B-Natriuretic Peptide 15 Total Protein Albumin Lipase TSH 1.79 Urine Color Urine Appearance Urine pH Ur Specific [place] Urine Protein Urine Glucose (UA) Urine Ketones Urine Blood Urine Nitrite Ur Leukocyte Esterase Urine RBC Urine WBC Ur Squamous Epith Cells Urine Bacteria Hyaline Casts Urine Opiates Screen Ur Buprenorphine Scrn Ur Oxycodone Screen Urine Methadone Screen Urine Fentanyl Screen Ur Barbiturates Screen Ur Phencyclidine Scrn Ur Amphetamines Screen U Benzodiazepines Scrn Urine Cocaine Screen U Marijuana (THC) Screen Influenza Type A (PCR) NEGATIVE Influenza Type B (PCR) NEGATIVE RSV RNA Qual (PCR) NEGATIVE SARS-CoV-2 RNA (RT-PCR) POSITIVE A 11/17/24 11/17/24 00:00 00:13 MCV MCH MCHC RDW Plt Count MPV Immature Gran % (Auto) Neut % (Auto) Lymph % (Auto) [place] % (Auto) Eos % (Auto) Baso % (Auto) Lymph # (Auto) [place] # (Auto) Eos # (Auto) Baso # (Auto) Abs Immat Gran (auto) Absolute Neuts (auto) Absolute Nucleated RBC Nucleated RBC % (auto) VBG pH VBG pCO2 VBG pO2 VBG HCO3 VBG O2 Saturation VBG Base Excess Anion Gap 13 Estim Creat Clear Calc 145.1 Estimated GFR > 60 Random Glucose 120 H Lactic Acid Calcium 8.6 Magnesium 2.0 Total Bilirubin 0.5 Direct Bilirubin 0.2 AST 24 ALT 15 Alkaline Phosphatase 84 B-Natriuretic Peptide Total Protein 6.0 L Albumin 3.9 Lipase 9 TSH Urine Color RED Urine Appearance Turbid Urine pH 5.0 Ur Specific [place] 1.020 Urine Protein 300 (3+) H Urine Glucose (UA) Negative Urine Ketones Trace Urine Blood Large (3+) H Urine Nitrite Positive H Ur Leukocyte Esterase Small (1+) H Urine RBC >20 H Urine WBC 6-10 Ur Squamous Epith Cells 0-2 Urine Bacteria Trace Hyaline Casts 0-2 Urine Opiates Screen Not Detected Ur Buprenorphine Scrn Not Detected Ur Oxycodone Screen Not Detected Urine Methadone Screen Not Detected Urine Fentanyl Screen Not Detected Ur Barbiturates Screen Not Detected Ur Phencyclidine Scrn Not Detected Ur Amphetamines Screen Not Detected U Benzodiazepines Scrn Not Detected Urine Cocaine Screen Not Detected U Marijuana (THC) Screen Not Detected Influenza Type A (PCR) Influenza Type B (PCR) RSV RNA Qual (PCR) SARS-CoV-2 RNA (RT-PCR) Assessment and Plan (1) Unwitnessed fall: Status: Acute (2) Encephalopathy acute: Status: Acute Plan This is a 59-year-old male with pertinent history of TBI, schizophrenia, hypothyroidism, dysphagia, BHP, mixed hyperlipidemia, history of opioid use disorder who was brought to the emergency department from [facility] for evaluation of unwitnessed fall. #. Unwitnessed fall: Unclear preceding event. Will monitor on telemetry #. Acute encephalopathy due to UTI and COVID-19 infection in a patient with TBI and schizophrenia: No hypoxia. NPO until mentation improves. Initiating IV ceftriaxone. No sepsis. Aspiration precautions #. Hypothyroidism: Synthroid once able to take p.o. #. Dysphagia: Speech consult #. Schizophrenia: Resume home mood stabilizers once mentation improves and able to take p.o. #. BPH: On Flomax Med rec pending DVT prophylaxis: Lovenox Full code Admit as inpatient and will require two night minimum hospital stay for monitoring of mentation, IV antibiotics (as above), which is not possible in a lesser acute setting. Quality Stroke Does the patient have a stroke diagnosis?: No VTE Prior VTE?: No VTE Risk Level:: Medical - moderate - high VTE Device Contraindication: Treatment Not Indicated VTE Drug Contraindication: N/A - Med Ordered
--- NOTE | 2024-11-17 06:15 | PC.NURSE ---
pt now awake, alert , able to converse and answer questions appropriately. pt able to stand at bedside with one person assist to use urinal. linens changed and new blankets provided. pt resting comfortably on stretcher, in no apparent distress, on clinical research monitor with call orta within reach. plan of care continues.
[2024-11-17] MEDS: cefTRIAXone sodium 1 GM VIAL IVPUSH (06:23)
[2024-11-17] MEDS: Enoxaparin Sodium 40 MG/0.4 ML SYRINGE SUBCUT (06:23)
--- NOTE | 2024-11-17 07:41 | PHA.MEDREC ---
Pharmacy Consult ? Medication Reconciliation Pharmacy has reviewed the medication reconciliation done by nursing and also made correction and addition using list from Andre at [facility]. Per list, patient takes divalproex ER 24hr 500 mg twice a day, and atorvastatin 10 mg twice a day. Total bedtime time dose of clozapine is 550 mg, last dose give on 11/16/24 @2030.
--- NOTE | 2024-11-17 10:23 | MHC.CM.PN ---
[place] 11/17/24, discussed with guardian, Sandoval Kumar, and sent to him in the mail. Pt. resides LTC are [facility]. DCP: return to [facility] via BLS. CM will follow to assist with DC, and will inform guardian when pt. is transferred back to SNF.
--- NOTE | 2024-11-17 10:25 | MHC.SL.SWA ---
Speech Pathologist Impression: Mild oral phase dysphagia Risk of Aspiration Due to: Missing teeth Dysphasia Diet Status: Upgrade from NPO, start on NDD2/THIN Liquid Consistency and Strategies for Safe Swallow: Liquid Intake Recommendation: Thin Solid Food Consistency: Dietary Recommendations: Grnd/Mech Altered (NDD2) Additional Modifications to Solid Foods: Patient presents with mild oral phase dysphagia, with slowed and prolonged mastication pattern likely d/t missing top dentures. At baseline, patient eats a regular texture diet and thin liquids at [facility], and may likely advance back to baseline once his teeth are found. For now, recommend start on GROUND/MECH ALTERED (NDD2) diet for ease of mastication, and THIN liquids, pills WHOLE with LIQUID. Oral Medication Intake: Whole with Liquid Please contact the pharmacy regarding appropriate crushable or liquid drug formulations that are available whenever modified delivery is recommended. Supervision While Eating and Drinking for Safe Swallow: Direct Supervision (1:1) Recommendation for Speech: Inpatient Speech Therapy Comment: 1-2 f/u, re-assess with dentures Frequency/Duration: Date Range for Service Req: Timeline to reassess: Correctional Manager Clinican/Clinical Fellow: No Supervisory Statement: I have reviewed and agree with the student/clinical fellow's documentation: N/A Speech Language Pathologist: Erika Carter M.A., CCC-COMMERCIAL CARPENTER
[2024-11-17] MEDS: Atorvastatin Calcium 10 MG TABLET PO ×2 (10:30→19:57)
[2024-11-17] MEDS: Metoprolol Succinate ER 25 MG TAB.ER.24H PO (10:30)
[2024-11-17] MEDS: Lactulose 20 GM/30 ML SOLUTION PO ×2 (10:30→19:57)
[2024-11-17] MEDS: Tamsulosin HCL 0.4 MG CAPSULE PO ×2 (10:30→19:58)
[2024-11-17] MEDS: clonazePAM 0.5 MG TABLET PO ×2 (10:31→19:58)
[2024-11-17] MEDS: 0.9 % Sodium Chloride Flush 3 ML SYRINGE IVFLUSH ×2 (10:31→19:59)
[2024-11-17] MEDS: cloZAPine 25 MG TABLET 50 MG PO ×2 (10:31→19:58)
[2024-11-17] MEDS: Docusate Sodium 100 MG CAPSULE PO (10:31)
[2024-11-17] MEDS: Divalproex Sodium ER 500 MG TAB.ER.24H PO ×2 (10:31→19:58)
--- NOTE | 2024-11-17 11:42 | PM.EVENT ---
Event Note Date of Service: 11/17/24 Event Note: Chart reviewed patient examined agree with H&P as outlined. We will continue ceftriaxone pending cultures. Hopefully returned to [facility] soon Time Spent With Patient Time: Total time managing care of this patient today ____ minutes.
[2024-11-17] MEDS: cloZAPine 100 MG TABLET 500 MG PO (19:57)
[2024-11-17] MEDS: Melatonin 3 MG TABLET 6 MG PO (19:58)
[2024-11-17] MEDS: Acetaminophen 325 MG TABLET 650 MG PO (19:58)
[2024-11-17] MEDS: Benztropine Mesylate 1 MG TABLET PO (19:58)
[2024-11-18 04:00] VITALS: BP 109/88; PULSE 89; RESP 16; TEMP 37; O2SAT 99
[2024-11-18] MEDS: cefTRIAXone sodium 1 GM VIAL IVPUSH (05:28)
[2024-11-18] MEDS: Enoxaparin Sodium 40 MG/0.4 ML SYRINGE SUBCUT (05:28)
[2024-11-18 06:16] LABS: MANUAL DIFF FLAG NO
[2024-11-18 06:19] LABS: Basophils Percent Auto 0.4 % (0-2); Eosinophils Absolute Auto 0.1 X10*3/uL (0.0-0.4); Eosinophils Percent Auto 1.6 % (0-4); Hematocrit 39.3 % (42.0-52.0); Hemoglobin 13.3 g/dl (14.0-18.0); Imm Gran Abs Auto 0.03 X10*3/uL (0.00-0.03); Imm Gran Pct Auto 0.4 % (0.0-0.4); Lymphocytes Absolute Auto 1.6 X10*3/uL (1.2-4.9); Lymphocytes Percent Auto 20.6 % (20-40); Mean Corpuscular HGB Conc 33.8 g/dl (31.0-36.0); Mean Corpuscular Hemoglobin 29.8 pg (27.0-33.0); Mean Corpuscular Volume 87.9 fL (80.0-98.0); Mean Platelet Volume 9.4 fL (9.4-12.4); Monocytes Absolute Auto 1.1 X10*3/uL (0.1-1.2); Neutrophils Absolute Auto 4.9 x10*3/uL (2.0-8.3); Platelet Count 227 X10*3/uL (160-400); Red Blood Count 4.47 X10*6/uL (4.60-5.80); Red Cell Distribution Width 14.4 % (11.0-16.0); White Blood Count 7.7 X10*3/uL (4.8-10.8)
[2024-11-18 06:39] LABS: Anion Gap 13 (12-20); Blood Urea Nitrogen 7 mg/dL (9-16); Calcium 9.2 mg/dL (8.4-10.2); Carbon Dioxide 25 mmol/L (22-29); Chloride 109 mmol/L (96-108); Creatinine Clr Calc Pharmacy 150.1; Estimated Glomerular Filt Rate > 60; Glucose Random 112 mg/dL (60-115); Potassium 4.2 mmol/L (3.3-5.1); Sodium 143 mmol/L (135-145)
[2024-11-18 08:00] VITALS: BP 131/90; PULSE 103; RESP 18; TEMP 36.5; O2SAT 98
[2024-11-18] MEDS: Atorvastatin Calcium 10 MG TABLET PO ×2 (08:23→19:53)
[2024-11-18] MEDS: Divalproex Sodium ER 500 MG TAB.ER.24H PO ×2 (08:23→19:56)
[2024-11-18] MEDS: Metoprolol Succinate ER 25 MG TAB.ER.24H PO (08:23)
[2024-11-18] MEDS: clonazePAM 0.5 MG TABLET PO ×2 (08:23→19:53)
[2024-11-18] MEDS: Docusate Sodium 100 MG CAPSULE PO (08:23)
[2024-11-18] MEDS: 0.9 % Sodium Chloride Flush 3 ML SYRINGE IVFLUSH ×3 (08:24→19:57)
[2024-11-18] MEDS: Lactulose 20 GM/30 ML SOLUTION PO ×2 (08:24→19:54)
--- NOTE | 2024-11-18 09:33 | P.PNIM_ITS ---
Subjective Subjective Date of Service: 11/18/24 Interval History: Remains at baseline (known to me from [facility]). No acute issues overnight Review of Systems Unable to obtain Physical Exam 2 Vital Signs: Vital Signs: Last Vital Signs Temp 97.7 F 11/18/24 08:00 Pulse 103 H 11/18/24 08:00 Resp 18 11/18/24 08:00 BP 131/90 H 11/18/24 08:00 Pulse Ox 98 11/18/24 08:00 O2 Del Method Room Air 11/18/24 08:00 BMI result Body Mass Index 31.5 Const: Other: Awake alert oriented x1 Resp: Other: Clear to auscultation bilaterally no rales rhonchi or wheezes Cardio: Other: No S4; positive S1-S2; no S3 murmurs rubs or gallops GI: Other: Soft nontender nondistended normoactive bowel sounds Extrem: Other: No edema bilaterally Objective Data Active Medications Acetaminophen (Acetaminophen 325 Mg Tablet) 650 mg PO Q6H PRN PRN Reason: Pain, Mild 1-3,fever,headache Last Admin: 11/17/24 19:58 Dose: 650 mg Documented By: LILLIAN Al Hydroxide/Mg Hydroxide (Magnesium Hydrox/Alum Hydrox 30 Ml Oral.Susp) 30 ml PO Q8H PRN PRN Reason: Indigestion Atorvastatin Calcium (Atorvastatin Calcium 10 Mg Tablet) 10 mg PO BID [facility] Last Admin: 11/18/24 08:23 Dose: 10 mg Documented By: ABBY Benztropine Mesylate (Benztropine Mesylate 1 Mg Tablet) 1 mg PO BEDTIME [facility] Last Admin: 11/17/24 19:58 Dose: 1 mg Documented By: LILLIAN Bisacodyl (Bisacodyl 10 Mg Supp.Rect) 10 mg VT DAILY PRN PRN Reason: Constipation Calcium Carbonate (Calcium Carbonate 750 Mg Tab.Chew) 750 mg PO Q4H PRN PRN Reason: Heartburn Ceftriaxone Sodium (Ceftriaxone Sodium 1 Gm Vial) 1 gm IVPUSH Q24H [facility] Last Admin: 11/18/24 05:28 Dose: 1 gm Documented By: DOMO Clonazepam (Clonazepam 0.5 Mg Tablet) 0.5 mg PO BID [facility] Last Admin: 11/18/24 08:23 Dose: 0.5 mg Documented By: ABBY Clozapine (Clozapine 100 Mg Tablet) 500 mg PO BEDTIME [facility] Last Admin: 11/17/24 19:57 Dose: 500 mg Documented By: LILLIAN Clozapine (Clozapine 25 Mg Tablet) 50 mg PO BEDTIME [facility] Last Admin: 11/17/24 19:58 Dose: 50 mg Documented By: LILLIAN Divalproex Sodium (Divalproex Sodium Er 500 Mg Tab.Er.24h) 500 mg PO BID [facility] Last Admin: 11/18/24 08:23 Dose: 500 mg Documented By: ABBY Docusate Sodium (Docusate Sodium 100 Mg Capsule) 100 mg PO DAILY [facility] Last Admin: 11/18/24 08:23 Dose: 100 mg Documented By: ABBY Enoxaparin Sodium (Enoxaparin Sodium 40 Mg/0.4 Ml Syringe) 40 mg SUBCUT Q24H [facility] Last Admin: 11/18/24 05:28 Dose: 40 mg Documented By: DOMO Ibuprofen (Ibuprofen 600 Mg Tablet) 600 mg PO Q6H PRN PRN Reason: Back Pain Lactulose (Lactulose 20 Gm/30 Ml Solution) 20 gm PO BID [facility] Last Admin: 11/18/24 08:24 Dose: 20 gm Documented By: ABBY Magnesium Hydroxide (Milk Of Magnesia 30 Ml Oral.Susp) 30 ml PO DAILY PRN PRN Reason: Constipation Melatonin (Melatonin 3 Mg Tablet) 6 mg PO BEDTIME PRN PRN Reason: Insomnia Last Admin: 11/17/24 19:58 Dose: 6 mg Documented By: LILLIAN Metoprolol Succinate (Metoprolol Succinate Er 25 Mg Tab.Er.24h) 25 mg PO DAILY [facility]; Protocol Last Admin: 11/18/24 08:23 Dose: 25 mg Documented By: ABBY Ondansetron HCl (Ondansetron Hcl 4 Mg/2 Ml Vial) 4 mg IVPUSH Q8H PRN PRN Reason: Nausea and Vomiting Sodium Chloride (0.9 % Sodium Chloride Flush 3 Ml Syringe) 3 ml IVFLUSH QSHIFT [facility] Last Admin: 11/18/24 08:24 Dose: 3 ml Documented By: ABBY Tamsulosin HCl (Tamsulosin Hcl 0.4 Mg Capsule) 0.4 mg PO BEDTIME [facility] Last Admin: 11/17/24 19:58 Dose: 0.4 mg Documented By: LILLIAN Labs 11/18/24 05:49 11/18/24 05:49 Labs: Laboratory Results - last 24 hr 11/18/24 05:49 MCV 87.9 MCH 29.8 MCHC 33.8 RDW 14.4 Plt Count 227 MPV 9.4 Immature Gran % (Auto) 0.4 Neut % (Auto) 63.0 Lymph % (Auto) 20.6 [place] % (Auto) 14.0 H Eos % (Auto) 1.6 Baso % (Auto) 0.4 Lymph # (Auto) 1.6 [place] # (Auto) 1.1 Eos # (Auto) 0.1 Baso # (Auto) 0.0 Abs Immat Gran (auto) 0.03 Absolute Neuts (auto) 4.9 Absolute Nucleated RBC 0.000 Nucleated RBC % (auto) 0.0 Anion Gap 13 Estim Creat Clear Calc 150.1 Estimated GFR > 60 Random Glucose 112 Calcium 9.2 D Microbiology Microbiology Results: Microbiology 11/16/24 22:54 Blood Culture - Preliminary Blood - Venous No growth after 24 hours. 11/16/24 22:47 Blood Culture - Preliminary Blood - Venous No growth after 24 hours. Assessment and Plan (1) Encephalopathy acute: Status: Acute (2) Acute UTI: Status: Acute Plan This is a 59-year-old male with pertinent history of TBI, schizophrenia, hypothyroidism, dysphagia, BHP, mixed hyperlipidemia, history of opioid use disorder who was brought to the emergency department from [facility] for evaluation of unwitnessed fall. 1.Acute encephalopathy due to UTI (back to baseline) -Ceftriaxone(2) -adjust based on cultures -switch to p.o. when BC cultures negative times 48 hours 2.Hypothyroidism -continue outpatient supplementation 3.Schizophrenia -stable and well compensated -continue outpatient therapies Lovenox Full code Requires ongoing hospitalization for IV antibiotics to treat UTI the cause encephalopathy. Cultures pending Quality Stroke Does the patient have a stroke diagnosis?: No VTE Prior VTE?: No VTE Risk Level:: Medical - moderate - high VTE Device Contraindication: Treatment Not Indicated VTE Drug Contraindication: N/A - Med Ordered
[2024-11-18 12:00] VITALS: BP 140/76; PULSE 76; RESP 18; TEMP 36.6; O2SAT 99
[2024-11-18] MEDS: Levothyroxine Sodium 50 MCG TABLET PO (12:31)
[2024-11-18 15:17] VITALS: BP 159/87; PULSE 100; RESP 20; TEMP 36.7; O2SAT 96
[2024-11-18] MEDS: cloZAPine 100 MG TABLET 500 MG PO (19:52)
[2024-11-18] MEDS: Tamsulosin HCL 0.4 MG CAPSULE PO (19:53)
[2024-11-18] MEDS: cloZAPine 25 MG TABLET 50 MG PO (19:53)
[2024-11-18] MEDS: Benztropine Mesylate 1 MG TABLET PO (19:54)
[2024-11-18 20:06] VITALS: BP 136/85; PULSE 94; RESP 20; TEMP 36.7; O2SAT 96
[2024-11-19] VITALS: BP 121/68; PULSE 80; RESP 18; TEMP 36; O2SAT 94
[2024-11-19 03:50] VITALS: BP 131/71; PULSE 97; RESP 18; TEMP 36.4; O2SAT 97
[2024-11-19] MEDS: Levothyroxine Sodium 50 MCG TABLET PO (05:23)
[2024-11-19] MEDS: cefTRIAXone sodium 1 GM VIAL IVPUSH (05:23)
[2024-11-19] MEDS: Enoxaparin Sodium 40 MG/0.4 ML SYRINGE SUBCUT (05:23)
[2024-11-19 07:41] VITALS: BP 145/85; PULSE 104; RESP 18; TEMP 36.7; O2SAT 96
[2024-11-19 07:54] VITALS: BP 145/85; PULSE 104
[2024-11-19] MEDS: Atorvastatin Calcium 10 MG TABLET PO (07:54)
[2024-11-19] MEDS: Docusate Sodium 100 MG CAPSULE PO (07:54)
[2024-11-19] MEDS: clonazePAM 0.5 MG TABLET PO (07:54)
[2024-11-19] MEDS: Divalproex Sodium ER 500 MG TAB.ER.24H PO (07:54)
[2024-11-19] MEDS: Metoprolol Succinate ER 25 MG TAB.ER.24H PO (07:54)
[2024-11-19] MEDS: Lactulose 20 GM/30 ML SOLUTION PO (07:55)
[2024-11-19] MEDS: 0.9 % Sodium Chloride Flush 3 ML SYRINGE IVFLUSH (07:55)
[2024-11-19 12:00] VITALS: BP 130/76; PULSE 93; RESP 20; TEMP 36.4; O2SAT 97
--- NOTE | 2024-11-19 13:00 | MHC.CM.PN ---
Addendum entered by Osiris Hernández RN 11/19/24 15:24: Third attempt to notify guardian of dc, mailbox full. Original Note: Per hospitalist, patient medically cleared for dc back to LTC @ [facility]. BLS transport scheduled for 4pm. Attempted to reach guardian x2 to notify, no answer and VM box is full. Will continue attempts. [facility] RN aware of patient return.
--- NOTE | 2024-11-19 13:18 | P.DS_ITS ---
DS: Providers Provider Date of Service: 11/19/24 Date of admission: 11/17/24 06:07 Date of discharge: 11/19/24 Primary care physician: Unknown Physician DS: Diagnosis Discharge Diagnosis (1) Encephalopathy acute: Status: Acute (2) Acute UTI: Status: Acute DS: Summary Hospital Course Hospital Course: From the admission HPI: This is a 59-year-old male with pertinent history of TBI, schizophrenia, hyp othyroidism, dysphagia, BPH, mixed hyperlipidemia, history of opioid use disorder who was brought to the emergency department from [facility] for evaluation of unwitnessed fall. Unable to obtain history from the patient. History obtained from ER provider and chart review. At the time of my evaluation, patient is only eye opening to verbal stimulus and says his name but falls back asleep. Is disoriented to time and place. Does not know why he is in the hospital. Patient was found on the ground by staff at outside facility [facility]. Patient was unable to answer questions at the time of EMS arrival. At baseline, patient is alert, oriented and interactive. Unable to obtain review of systems. In the emergency department, patient tested positive for COVID-19 infection and urine concerning for UTI. Hospital course: Pt was treat with ceftriaxone IV for concern for UTI. Mentation improved back to baseline by day 2 where pt was seen and evaluated by Dr. Vega who is his primary physician at [facility]. Patient's hospital course was unremarkable without acute events. Pt was monitored on telemetry without any significant cardiac arrhythmias or abnormalities. Urine and blood cultures negative after 48 hours. For concern for UTI pt will be discharged back to SNF on cefuroxime 250 mg p.o. b.i.d. x5 days. For COVID, pt not hypoxic and asymptomatic from a pulmonary standpoint without SOB, difficulty breathing, or cough. Supportive treatment. For hypothyroidism continue levothyroxine For HLD continue statin For HTN continue metoprolol For BPH continue tamsulosin For schizophrenia continue home mood stabilizers Time Attestation Discharge Coordination Time (in mins): 33 minutes Quality: Safe Use of Opioids Does Pt have an Active Cancer Diagnosis on the Problem List?: No Quality: Stroke Does the patient have a stroke diagnosis?: No Physical Exam Vital Signs: Vital Signs: Last Vital Signs Temp 97.5 F 11/19/24 12:00 Pulse 93 11/19/24 12:00 Resp 20 11/19/24 12:00 BP 130/76 11/19/24 12:00 Pulse Ox 97 11/19/24 12:00 O2 Del Method Room Air 11/19/24 12:00 O2 Flow Rate 2 11/19/24 00:00 BMI result Body Mass Index 31.5 General: AOx1, no acute distress Resp: CTA bilaterally CVS: S1, S2, RRR GI: +BS, NT, no distention Skin: Warm, dry Neuro: Cranial nerves II-XII grossly intact bilaterally. Motor grossly intact bilaterally Extremities: No edema Psych: Pleasantly confused DS: Data Data Completed and Pending Labs on day of discharge: Preliminary micro results at discharge 11/16/24 22:54 Blood Culture - Preliminary Blood - Venous No growth after 48 hours. 11/16/24 22:47 Blood Culture - Preliminary Blood - Venous No growth after 48 hours. Discharge Plan Discharge Anticipated Discharge Date/Time: 11/19/24 12:58 Patient Disposition: Xfer SNF Discharge Diagnosis: Acute metabolic encephalopathy Referrals: [facility] [Outside] - 1 Week Physician,Unknown J [Primary Care Provider] - 1 Week Discharge Medications: New cefuroxime axetil 250 mg tablet 250 mg PO Q12H Qty: 10 0RF Rx Instructions: Take one tablet twice a day for the next 5 days. Continued sennosides [senna] 8.6 mg Tablet 8.6 mg PO DAILY PRN (Reason: Constipation) tamsulosin 0.4 mg capsule 0.4 mg PO BEDTIME levothyroxine 50 mcg tablet 50 mcg PO DAILY@0600 divalproex 500 mg tablet extended release 24 hr 500 mg PO 2XD Fleet Enema 19-7 gram/118 mL Enema 118 ml [place] DAILY PRN (Reason: Constipation) docusate sodium 100 mg Capsule 100 mg PO DAILY guaifenesin 200 mg/5 mL Liquid 400 mg PO Q4H PRN (Reason: Congestion) polyethylene glycol 3350 17 gram Powder In Packet 17 g PO DAILY atorvastatin 10 mg Tablet 10 mg PO BID bisacodyl 10 mg Suppository 10 mg [place] DAILY PRN (Reason: Constipation) Rx Instructions: use if senna is ineffective alum-mag hydroxide-simeth 400-400-40 mg/5 mL Suspension 30 ml PO Q8H PRN (Reason: Indigestion) clozapine 200 mg Tablet 400 mg PO BEDTIME acetaminophen 325 mg tablet 650 mg PO Q6H PRN (Reason: Fever Or Pain) benztropine 1 mg tablet 1 mg PO BEDTIME clonazepam 0.5 mg tablet 0.5 mg PO BID ibuprofen 600 mg tablet 600 mg PO Q6H PRN (Reason: Back Pain) lactulose 10 gram/15 mL solution 30 ml PO BID metoprolol succinate 25 mg tablet extended release 24 hr 25 mg PO DAILY clozapine 100 mg tablet 100 mg PO BEDTIME clozapine 50 mg tablet 50 mg PO BEDTIME Discharge Orders: Discharge Order (Routine); Ordered 11/19/24 Ordered By: Donna Gill Activity on Discharge: As tolerated Stand Alone Forms: Patient Portal Discharge page Print Language: Tajik Care Plan Goals: Complete antibiotics for UTI Health Concerns: Encephalopathy Generalized weakness/falls Plan of Treatment: Will go home on cefuroxime 250 mg p.o. b.i.d. x5 days Assessment: See discharge summary
[2024-11-19 15:29] VITALS: BP 156/93; PULSE 86; RESP 20; TEMP 36.2; O2SAT 95
== END 2024-11-19 16:57 | disposition skilled nursing facility (03) | DRG 137 ==
LOC: HO.ED 11-17 01:03 → HO.EDOVER 11-17 01:05 → HO.IMC 11-17 07:44
PROVIDERS: Admitting Provider Student in an Organized Health Care Education/Training Program; Emergency Provider Emergency Medicine; PCP Hospitalist; Visit Provider Student in an Organized Health Care Education/Training Program
DX: U07.1 COVID-19 (principal); G93.49 Other encephalopathy; N39.0 Urinary tract infection, site not specified; E03.9 Hypothyroidism, unspecified; R13.10 Dysphagia, unspecified; N40.0 Benign prostatic hyperplasia without lower urinary tract symptoms; E78.2 Mixed hyperlipidemia; Z79.890 Hormone replacement therapy; Z87.820 Personal history of traumatic brain injury; Z87.891 Personal history of nicotine dependence; Z79.899 Other long term (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
CPT/HCPCS: 0241U; 36415; 70450; 71250; 72125; 80048; 80076; 80307; 81001; 82803; 83605; 83690; 83735; 83880; 84443; 84484; 85025; 87040; 87086; 92610; 93005; 99222; 99285; J0696; J1650; J2543

== ENCOUNTER → 2024-11-16 22:37 | Outpatient (BNV) | payer MEDICAID, SELFPAY | PROVIDERS: Admitting Provider Student in an Organized Health Care Education/Training Program; Emergency Provider Emergency Medicine; Visit Provider Internal Medicine Cardiovascular Disease | DX: I49.3 Ventricular premature depolarization (principal) | CPT/HCPCS: 93010 ==

== ENCOUNTER → 2024-11-16 22:37 | Outpatient (BNV) | payer OTHER, MEDICAID, SELFPAY | PROVIDERS: Emergency Provider Emergency Medicine; Visit Provider Radiology Diagnostic Radiology | DX: R41.82 Altered mental status, unspecified (principal); I63.532 Cerebral infarction due to unspecified occlusion or stenosis of left posterior cerebral artery | CPT/HCPCS: 70450; 71250; 72125 ==

== ENCOUNTER → 2024-11-17 06:07 | Outpatient (BNV) | payer OTHER, MEDICAID, SELFPAY | PROVIDERS: Admitting Provider Student in an Organized Health Care Education/Training Program; Emergency Provider Emergency Medicine; Visit Provider Student in an Organized Health Care Education/Training Program | DX: G93.40 Encephalopathy, unspecified (principal); N39.0 Urinary tract infection, site not specified | CPT/HCPCS: 99223; 99232; 99239; 99499 ==

== ENCOUNTER 2024-12-19 07:24 | Day surgery (SDC) | payer MEDICAID, SELFPAY ==
--- OUTSIDE RECORDS SUMMARY | 2024-08-23 17:41 | XMS_ITS | Encounter Summary ---
Author Organization [facility] Address [address] [place] [address] Care Team Providers Care Transitional Care Manager Name Role Phone Ronald Webster MD Primary Care Provider +1- [phone] Encounter Details Date Type Department Care Team (Late st Contact Info) Description [address] [facility] - Main Lab [address] [place] [address] Abisai Vega MD [address] [place] [address] [address] [place], [place] Essential (primary) hypertension Social History Tobacco Use Types Packs/Day Years Used Date Smoking Tobacco: Former Cigarettes Q uit: 07/29/2013 Smokeless Tobacco: Former Alcohol Use Standard Drinks/Week Comments No 0 (1 standard drink = 0.6 oz pur e alcohol) Sex and Gender Information Value Date Recorded Sex Assigned at Not on file Legal Sex Male 1:06 PM EST Gender Identity Not on file Sexual Orientation Not on file documented as of this encounter Plan of Treatment Not on file documented as of this encounter Procedures Procedure Name Priority Date/Time Associated Diagnosis Comments CBC WITH AUTO DIFFERENTIAL Routine 2024 6:51 AM EST Essential (primary) hypertension CBC AND DIFFERENTIAL Routine 2024 6:51 AM EST Essential (primary) hypertension documented in this encounter Results * (ABNORMAL) CBC auto differential (2024 6:51 AM EST) [facility] Signature WBC 7.0 4.8 - 10.8 K/[facility] LAB HEMETOLOGY METHOD 2024 8:45 AM EST [facility] LAB RBC 4.90 4.50 - 5.50 M/[facility] LAB HEMETOLOGY METHOD 2024 8:45 AM [facility] LAB Hemoglobin 14.8 13.5 - 17.5 g/dL LAB HEMETOLOGY METHOD 2024 8:45 AM [facility] LAB Hematocrit 45.4 42.0 - 54.0 % LAB HEMETOLOGY METHOD 2024 8:45 AM [facility] LAB MCV 92.7 79.0 - 98.0 FL LAB HEMETOLOGY METHOD 2024 8:45 AM [facility] LAB MCH 30.2 27.0 - 32.0 pcg LAB HEMETOLOGY METHOD 2024 8:45 AM [facility] LAB MCHC 32.6 32.0 - 37.0 g/dL LAB HEMETOLOGY METHOD 2024 8:45 AM [facility] LAB RDW 13.6 11.0 - 15.0 % LAB HEMETOLOGY METHOD 2024 8:45 AM [facility] LAB Platelets 245 130 - 400 K/mcL LAB HEMETOLOGY METHOD 2024 8:45 AM [facility] LAB MPV 9.9 7.0 - 11.0 FL LAB HEMETOLOGY METHOD 2024 8:45 AM [facility] LAB NRBC 0.0 <1.0 % LAB HEMETOLOGY METHOD 2024 8:45 AM [facility] LAB NRBC Absolute 0.00 <0.10 K/mcL LAB HEMETOLOGY METHOD 2024 8:45 AM [facility] LAB Neutrophils Relative 60.7 % LAB HEMETOLOGY METHOD 2024 8:45 AM [facility] LAB Lymphocytes Relative 20.8 % LAB HEMETOLOGY METHOD 2024 8:45 AM [facility] LAB Monocytes Relative 15.9 % LAB HEMETOLOGY METHOD 2024 8:45 AM EST [facility] LAB Eosinophils Relative 1.6 % LAB HEMETOLOGY METHOD 2024 8:45 AM [facility] LAB Basophils Relative 0.4 % LAB HEMETOLOGY METHOD 2024 8:45 AM [facility] LAB Immature Granulocytes Relative 0.6 % LAB HEMETOLOGY METHOD 2024 8:45 AM EST [facility] LAB Neutrophils Absolute 4.23 1.50 - 7.00 K/mcL LAB HEMETOLOGY METHOD 2024 8:45 AM EST [facility] LAB Lymphocytes Absolute 1.45 1.00 - 5.00 K/mcL LAB HEMETOLOGY METHOD 2024 8:45 AM [facility] LAB Monocytes Absolute 1.11(H) 0.20 - 1.00 K/mcL LAB HEMETOLOGY METHOD 2024 8:45 AM EST [facility] LAB Eosinophils Absolute 0.11 0.00 - 0.50 K/mcL LAB HEMETOLOGY METHOD 2024 8:45 AM EST [facility] LAB Basophils Absolute 0.03 0.00 - 0.20 K/mcL LAB HEMETOLOGY METHOD 2024 8:45 AM [facility] LAB Immature Granulocytes Absolute 0.04(H) 0.00 - 0.03 K/mcL LAB HEMETOLOGY METHOD 2024 8:45 AM [facility] LAB Blood Venous blood specimen / Unknown 2024 6:51 AM EST 2024 8:14 AM EST us Abisai Vega MD LAB BLOOD ORDERABLES Final Resul t [facility] [address] [place] [address], documented in this encounter Visit Diagnoses Diagnosis Essential (primary) hypertension Unspecified essential hypertension documented in this encounter Care Teams Transitional Care Manager Relationship Specialty Start Date End Date Ronald Webster MD [address] [address] PCP - General Die Try Out Worker Stamping 04/12/21 documented as of this encounter
--- OUTSIDE RECORDS SUMMARY | 2024-08-23 17:41 | XMS_ITS | Encounter Summary ---
Author Organization [facility] Address [address] [place] [address] Care Team Providers Care Cytology Teacher Name Role Phone Ronald Webster MD Primary Care Provider +1- [phone] Encounter Details Date Type Department Care Team (Late st Contact Info) Description 08/03/2024 Lab Requisition [facility] - Main Lab [address] [facility] [employer] [address] Abisai Vega MD [address] [place] [address] [address] [place], [place] Diffuse traumatic brain injury with loss [...] Procedure Name Priority Date/Time Associated Diagnosis Comments PROSTATE SPECIFIC ANTIGEN SCREEN Routine 08/03/2024 6:38 AM EST Diffuse traumatic brain injury with loss of consciousness of unspecified duration, sequela (CMS/HCC) SST - GOLD Routine 08/03/2024 6:38 AM EST Diffuse traumatic brain injury with loss of consciousness of unspecified duration, sequela (CMS/HCC) LIPID PANEL WITH REFLEX TO DIRECT LDL Routine 08/03/2024 6:38 AM EST Diffuse traumatic brain injury with loss of consciousness of unspecified duration, sequela (CMS/HCC) THYROID STIMULATING HORMONE Routine 08/03/2024 6:38 AM EST Diffuse traumatic brain injury with loss of consciousness of unspecified duration, sequela (CMS/HCC) THYROXINE FREE Routine 08/03/2024 6:38 AM EST Diffuse traumatic brain injury with loss of consciousness of unspecified duration, sequela (CMS/HCC) VALPROIC ACID LEVEL, TOTAL Routine 08/03/2024 6:38 AM EST Diffuse traumatic brain injury with loss of consciousness of unspecified duration, sequela (CMS/HCC) COMPREHENSIVE METABOLIC PANEL Routine 08/03/2024 6:38 AM EST Diffuse traumatic brain injury with loss of consciousness of unspecified duration, sequela (CMS/HCC) documented in this encounter Results * SST tube (08/03/2024 6:38 AM EST) Extra Tube Hold for add-ons. 08/03/2024 9:01 AM EST [facility] Comment:Auto resulted. Blood Venous blood specimen / Unknown 08/03/2024 6:38 AM EST 08/03/2024 7:53 AM EST us Abisai Vega MD LAB BLOOD ORDERABLES Final Resul t Performing Organization Address [facility]/ZIP Co de Phone Number [facility] [address] [place] [address], [place] [phone] * Thyroid stimulating hormone (08/03/2024 6:38 AM EST) TSH 1.19 0.40 - 4.00 mcIU/mL LAB CHEMISTRY METHOD 08/03/2024 8:57 AM EST [facility] Blood Venous blood specimen / Unknown 08/03/2024 6:38 AM EST 08/03/2024 7:53 AM EST us Abisai Vega MD LAB BLOOD ORDERABLES Final Resul t [facility] [address] [place] [address], [place] [phone] * Prostate specific antigen screen (08/03/2024 6:38 AM EST) Pathologist [facility] PSA 0.88 0.00 - 4.00 ng/mL LAB CHEMISTRY METHOD 08/03/2024 8:56 AM EST [facility] Blood Venous blood specimen / Unknown 08/03/2024 6:38 AM EST 08/03/2024 7:53 AM EST Narrative [facility] - 08/03/2024 8:56 AM EST The Siemens Advia ENDOGENXaur Chemiluminescent Immunoassay is used. Results obtained with different assay methods or kits cannot be used interchangeably. Results cannot be interpreted as absolute evidence of the presence or absence of malignant disease. us Abisai Vega MD LAB BLOOD ORDERABLES Final Resul t Performing Organization Address City/[facility]/ZIP Co de Phone Number [facility] [address] [place] [address], [place] [phone] * Thyroxine free (08/03/2024 6:38 AM EST) Free T4 1.34 0.70 - 1.80 ng/dL LAB CHEMISTRY METHOD 08/03/2024 8:56 AM EST [facility] Blood Venous blood specimen / Unknown 08/03/2024 6:38 AM EST 08/03/2024 7:53 AM EST us Abisai Vega MD LAB BLOOD ORDERABLES Final Resul t [facility] [address] [place] [address], [place] [phone] * Valproic acid level, total (08/03/2024 6:38 AM EST) Pathologist [facility] Valproic Acid, Total 60 50 - 100 mcg/mL LAB CHEMISTRY METHOD 08/03/2024 8:47 AM [facility] Blood Venous blood specimen / Unknown 08/03/2024 6:38 AM EST 08/03/2024 7:53 AM EST us Abisai Vega MD LAB BLOOD ORDERABLES Final Resul t [facility] [address] [place] [address], [place] [phone] * Lipid panel with reflex to direct LDL (08/03/2024 6:38 AM EST) Cholesterol 113 0 - 200 mg/dL LAB CHEMISTRY METHOD 08/03/2024 8:47 AM [facility] Triglycerides 113 0 - 150 mg/dL LAB CHEMISTRY METHOD 08/03/2024 8:47 AM [facility] HDL 44 >=40 mg/dL LAB CHEMISTRY METHOD 08/03/2024 8:47 AM [facility] LDL Calculated 46 0 - 100 mg/dL LAB CHEMISTRY METHOD 08/03/2024 8:47 AM [facility] VLDL Cholesterol Naun 22.6 mg/dL LAB CHEMISTRY METHOD 08/03/2024 8:47 AM [facility] Non HDL Chol. (LDL+VLDL) 69 <145 mg/dL LAB CHEMISTRY METHOD 08/03/2024 8:47 AM [facility] Chol/HDL Ratio 2.6 0.0 - 4.4 LAB CHEMISTRY METHOD 08/03/2024 8:47 AM [facility] Blood Venous blood specimen / Unknown 08/03/2024 6:38 AM EST 08/03/2024 7:53 AM EST us Abisai Vega MD LAB BLOOD ORDERABLES Final Resul t [facility] [address] [place] [address], [place] [phone] * (ABNORMAL) Comprehensive metabolic panel (08/03/2024 6:38 AM EST) Sodium 140 133 - 145 mmol/L LAB CHEMISTRY METHOD 08/03/2024 8:47 AM [facility] Potassium 4.1 3.5 - 5.5 mmol/L LAB CHEMISTRY METHOD 08/03/2024 8:47 AM [facility] Chloride 105 96 - 110 mmol/L LAB CHEMISTRY METHOD 08/03/2024 8:47 AM [facility] CO2 29 21 - 32 mmol/L LAB CHEMISTRY METHOD 08/03/2024 8:47 AM [facility] Anion Gap 6 3 - 11 LAB CHEMISTRY METHOD 08/03/2024 8:47 AM [facility] Glucose 83 70 - 100 mg/dL LAB CHEMISTRY METHOD 08/03/2024 8:47 AM [facility] BUN 16 5 - 25 mg/dL LAB CHEMISTRY METHOD 08/03/2024 8:47 AM [facility] Creatinine 0.62(L) 0.70 - 1.30 mg/dL LAB CHEMISTRY METHOD 08/03/2024 8:47 AM [facility] eGFR 110 >=60 mL/min/1. 73m2 LAB CHEMISTRY METHOD 08/03/2024 8:47 AM [facility] Comment:Calculation based on the??Chronic Kidney Disease Epidemiology Collaboration (CKD-EPI) equation refit??without adjustment for race. BUN/Creatinine Ratio 25.8 LAB CHEMISTRY METHOD 08/03/2024 8:47 AM [facility] Calcium 9.5 8.5 - 10.5 mg/dL LAB CHEMISTRY METHOD 08/03/2024 8:47 AM [facility] AST (SGOT) 12 10 - 42 unit/L LAB CHEMISTRY METHOD 08/03/2024 8:47 AM [facility] ALT (SGPT) 21 10 - 60 unit/L LAB CHEMISTRY METHOD 08/03/2024 8:47 AM EST [facility] Alkaline Phosphatase 92 42 - 121 unit/L LAB CHEMISTRY METHOD 08/03/2024 8:47 AM [facility] Total Protein 6.4 6.0 - 8.0 g/dL LAB CHEMISTRY METHOD 08/03/2024 8:47 AM [facility] Albumin 3.5 3.2 - 5.0 g/dL LAB CHEMISTRY METHOD 08/03/2024 8:47 AM [facility] Total Bilirubin 0.8 0.0 - 1.4 mg/dL LAB CHEMISTRY METHOD 08/03/2024 8:47 AM [facility] Blood Venous blood specimen / Unknown 08/03/2024 6:38 AM EST 08/03/2024 7:53 AM EST us Abisai Vega MD LAB BLOOD ORDERABLES Final Resul t [facility] [address] [place] [address], documented in this encounter Visit Diagnoses Diagnosis Diffuse traumatic brain injury with loss of consciousness of unspecified duration, sequela (CMS/HCC) documented in this encounter Care Teams Cytology Teacher Relationship Specialty Start Date End Date Ronald Webster MD [address] [place] [address] PCP - General Grounds Maintenance Worker 04/12/21 documented as of this encounter
--- OUTSIDE RECORDS SUMMARY | 2024-08-23 17:41 | XMS_ITS | Encounter Summary ---
Author Organization [facility] Address [address] [place] [address] Care Team Providers Care [place] Operator Name Role Phone Ronald Webster MD Primary Care Provider [phone]- [phone] Encounter Details Date Type Department Care Team (Late st Contact Info) Description 06/05/2024 Lab Requisition [facility] - Main Lab [address] [facility] [employer] [place] [address] Abisai Vega MD [address] [place] [address] [address] [place], [place] Other usp (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 Social History Tobacco Use [...] DIFFERENTIAL Routine 06/05/2024 7:25 AM EST Other roasterman (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 CLONAZEPAM LEVEL Routine 06/05/2024 7:25 AM EST Other roasterman (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 CBC AND DIFFERENTIAL Routine 06/05/2024 7:25 AM EST Other usp (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 AMMONIA Routine 06/05/2024 7:25 AM EST Other usp (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 VALPROIC ACID LEVEL, TOTAL Routine 06/05/2024 7:25 AM EST Other roasterman (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 COMPREHENSIVE METABOLIC PANEL Routine 06/05/2024 7:25 AM EST Other usp (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 documented in this encounter Results * CBC auto differential (06/05/2024 7:25 AM EST) [facility] WBC 5.8 4.8 - 10.8 K/mcL LAB HEMETOLOGY METHOD 06/05/2024 9:22 AM [facility] RBC 4.60 4.50 - 5.50 M/mcL LAB HEMETOLOGY METHOD 06/05/2024 9:22 AM [facility] Hemoglobin 14.1 13.5 - 17.5 g/dL LAB HEMETOLOGY METHOD 06/05/2024 9:22 AM [facility] Hematocrit 42.8 42.0 - 54.0 % LAB HEMETOLOGY METHOD 06/05/2024 9:22 AM [facility] MCV 92.6 79.0 - 98.0 FL LAB HEMETOLOGY METHOD 06/05/2024 9:22 AM [facility] MCH 30.5 27.0 - 32.0 pcg LAB HEMETOLOGY METHOD 06/05/2024 9:22 AM [facility] MCHC 32.9 32.0 - 37.0 g/dL LAB HEMETOLOGY METHOD 06/05/2024 9:22 AM [facility] RDW 12.7 11.0 - 15.0 % LAB HEMETOLOGY METHOD 06/05/2024 9:22 AM [facility] Platelets 204 130 - 400 K/mcL LAB HEMETOLOGY METHOD 06/05/2024 9:22 AM [facility] Comment:reviewed by slide MPV 10.5 7.0 - 11.0 FL LAB HEMETOLOGY METHOD 06/05/2024 9:22 AM [facility] NRBC 0.0 <1.0 % LAB HEMETOLOGY METHOD 06/05/2024 9:22 AM [facility] NRBC Absolute 0.00 <0.10 K/mcL LAB HEMETOLOGY METHOD 06/05/2024 9:22 AM [facility] Neutrophils Relative 66.2 % LAB HEMETOLOGY METHOD 06/05/2024 9:22 AM [facility] Lymphocytes Relative 20.8 % LAB HEMETOLOGY METHOD 06/05/2024 9:22 AM [facility] Monocytes Relative 10.7 % LAB HEMETOLOGY METHOD 06/05/2024 9:22 AM [facility] Eosinophils Relative 1.7 % LAB HEMETOLOGY METHOD 06/05/2024 9:22 AM [facility] Basophils Relative 0.3 % LAB HEMETOLOGY METHOD 06/05/2024 9:22 AM [facility] Immature Granulocytes Relative 0.3 % LAB HEMETOLOGY METHOD 06/05/2024 9:22 AM [facility] Neutrophils Absolute 3.84 1.50 - 7.00 K/mcL LAB HEMETOLOGY METHOD 06/05/2024 9:22 AM [facility] Lymphocytes Absolute 1.21 1.00 - 5.00 K/mcL LAB HEMETOLOGY METHOD 06/05/2024 9:22 AM [facility] Monocytes Absolute 0.62 0.20 - 1.00 K/mcL LAB HEMETOLOGY METHOD 06/05/2024 9:22 AM [facility] Eosinophils Absolute 0.10 0.00 - 0.50 K/mcL LAB HEMETOLOGY METHOD 06/05/2024 9:22 AM [facility] Basophils Absolute 0.02 0.00 - 0.20 K/mcL LAB HEMETOLOGY METHOD 06/05/2024 9:22 AM EST [facility] Immature Granulocytes Absolute 0.02 0.00 - 0.03 K/[facility] LAB HEMETOLOGY METHOD 06/05/2024 9:22 AM EST [facility] Blood Venous blood specimen / Unknown 06/05/2024 7:25 AM EST 06/05/2024 8:00 AM EST us Abisai Vega MD LAB BLOOD ORDERABLES Final Resul t Performing Organization Address [facility] Co de Phone Number [facility] [address] [place] [address], * Clonazepam level (06/05/2024 7:25 AM EST) Clonazepam <10 15 - 60 ng/mL 06/07/2024 9:54 AM EST [facility] Comment: Clonazepam (Klonopin)toxic level: ??>80 ng/mL If applicable, any drug confirmation testing reported here was developed and the performance characteristics determined by [facility]. This confirmation testing has not been cleared or approved by the FDA. The laboratory is regulated under CLIA as qualified to perform high-complexity testing. This test is used for patient testing purposes. It should not be regarded as investigational or for research. Test performed at [facility], [address] , [place], [place] ??[address] ? [phone] Rosalie Villalba MD, PhD - Professor/Nurse Anesthetist Blood Venous blood specimen / Unknown 06/05/2024 7:25 AM EST 06/05/2024 8:00 AM EST us Abisai Vega MD LAB BLOOD ORDERABLES Final Resul t Performing Organization Address City/[facility]/ZIP Co de Phone Number [facility] [address] [place] [address] * Clozapine (06/05/2024 7:25 AM EST) Clozapine 506 200 - 700 ng/mL 06/07/2024 7:22 AM EST [facility] Comment:Clozapine (Clozaril) toxic level: >1000 ng/mL Norclozapine 214 200 - 700 ng/mL 06/07/2024 7:22 AM EST [facility] Comment: For Refractory Schizophrenia, at least [...] developed and the performance characteristics determined by [facility]. This confirmation testing has not been cleared or approved by the FDA. The laboratory is regulated under CLIA as qualified to perform high-complexity testing. This test is used for patient testing purposes. It should not be regarded as investigational or for research. Test performed at [facility], [address] [place], [place] ??[address] ? [phone] Rosalei Villalba MD, PhD - Professor/Nurse Anesthetist Blood Venous blood specimen / Unknown 06/05/2024 7:25 AM EST 06/05/2024 8:00 AM EST us Abisai Vega MD LAB BLOOD ORDERABLES Final Resul t Performing Organization Address City/[facility]/ZIP Co de Phone Number [facility] [address] [place] [address] * (ABNORMAL) Ammonia (06/05/2024 7:25 AM EST) Ammonia 39(H) 11 - 35 mcmol/L LAB CHEMISTRY METHOD 06/05/2024 8:40 AM EST [facility] Blood Venous blood specimen / Unknown 06/05/2024 7:25 AM EST 06/05/2024 8:00 AM EST us Abisai Vega MD LAB BLOOD ORDERABLES Final Resul t [facility] [address] [place] [address], [place] [phone] * Valproic acid level, total (06/05/2024 7:25 AM EST) Pathologist [facility] Valproic Acid, Total 61 50 - 100 mcg/mL LAB CHEMISTRY METHOD 06/05/2024 8:55 AM EST [facility] Blood Venous blood specimen / Unknown 06/05/2024 7:25 AM EST 06/05/2024 8:00 AM EST Abisai Vega MD LAB BLOOD ORDERABLES Final Resul t Performing Organization Address [facility] Co de Phone Number [facility] [address] [place] [address], [place] [phone] * Comprehensive metabolic panel (06/05/2024 7:25 AM EST) [facility] Sodium 141 133 - 145 mmol/L LAB CHEMISTRY METHOD 06/05/2024 8:55 AM [facility] Potassium 4.3 3.5 - 5.5 mmol/L LAB CHEMISTRY METHOD 06/05/2024 8:55 AM [facility] Chloride 106 96 - 110 mmol/L LAB CHEMISTRY METHOD 06/05/2024 8:55 AM [facility] CO2 28 21 - 32 mmol/L LAB CHEMISTRY METHOD 06/05/2024 8:55 AM [facility] Anion Gap 7 3 - 11 LAB CHEMISTRY METHOD 06/05/2024 8:55 AM [facility] Glucose 88 70 - 100 mg/dL LAB CHEMISTRY METHOD 06/05/2024 8:55 AM [facility] BUN 18 5 - 25 mg/dL LAB CHEMISTRY METHOD 06/05/2024 8:55 AM [facility] Creatinine 0.72 0.70 - 1.30 mg/dL LAB CHEMISTRY METHOD 06/05/2024 8:55 AM [facility] eGFR 106 >=60 mL/min/1. 73m2 LAB CHEMISTRY METHOD 06/05/2024 8:55 AM [facility] Comment:Calculation based on the??Chronic Kidney Disease Epidemiology Collaboration (CKD-EPI) equation refit??without adjustment for race. BUN/Creatinine Ratio 25.0 LAB CHEMISTRY METHOD 06/05/2024 8:55 AM [facility] Calcium 9.0 8.5 - 10.5 mg/dL LAB CHEMISTRY METHOD 06/05/2024 8:55 AM [facility] AST (SGOT) 16 10 - 42 unit/L LAB CHEMISTRY METHOD 06/05/2024 8:55 AM [facility] ALT (SGPT) 19 10 - 60 unit/L LAB CHEMISTRY METHOD 06/05/2024 8:55 AM [facility] Alkaline Phosphatase 76 42 - 121 unit/L LAB CHEMISTRY METHOD 06/05/2024 8:55 AM [facility] Total Protein 6.1 6.0 - 8.0 g/dL LAB CHEMISTRY METHOD 06/05/2024 8:55 AM [facility] Albumin 3.3 3.2 - 5.0 g/dL LAB CHEMISTRY METHOD 06/05/2024 8:55 AM [facility] Total Bilirubin 0.8 0.0 - 1.4 mg/dL LAB CHEMISTRY METHOD 06/05/2024 8:55 AM [facility] Blood Venous blood specimen / Unknown 06/05/2024 7:25 AM EST 06/05/2024 8:00 AM EST us Abisai Vega MD LAB BLOOD ORDERABLES Final Resul t [facility] [address] [place] [address], documented in this encounter Visit Diagnoses Diagnosis Other usp (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 documented in this encounter Care Teams [place] Operator Relationship Specialty Start Date End Date Ronald Webster MD [address] [address] PCP - General Cage Supervisor 04/12/21 documented as of this encounter
--- OUTSIDE RECORDS SUMMARY | 2024-08-23 17:41 | XMS_ITS | Clinical Summary ---
Author Organization [address] Address [address] [place] [address] Phone Care Team Providers Care Pilot Manager Name Role Phone Ronald Webster MD Primary Care Provider [phone] Encounters Date Type Department Care Team Description 08/14/2024 Lab Requisition [facility] Lab [address] [place] [phone] Abisai Vega MD Schizophrenia, unspecified ([facility]) 08/07/2024 Lab Requisition [facility] Lab [address] [place] [phone] Abisai Vega MD Other intermediate (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 08/03/2024 Lab Requisition [facility] Lab [address] [place] [phone] Abisai Vega MD Diffuse traumatic brain injury with loss of consciousness of unspecified duration, sequela ([facility]) 2024 Lab Requisition [facility] Lab [address] [place] [phone] Abisai Vega MD Essential (primary) hypertension 07/27/2024 Lab Requisition [facility] Lab [address] [place] [phone] Abisai Vega MD Schizophrenia, unspecified ([facility]/HCC) 07/24/2024 Lab Requisition [facility] Lab [address] [place] [phone] Abisai Vega MD Hypothyroidism, unspecified; Schizophrenia, unspecified ([facility]/HCC) 06/29/2024 Lab Requisition [facility] Main Lab [address] [place] [phone] Abisai Vega MD Diffuse traumatic brain injury with loss of consciousness of unspecified duration, sequela ([facility]) 06/27/2024 Lab Requisition [facility] Main Lab [address] [place] [phone] Abisai Vega MD Diffuse traumatic brain injury with loss of consciousness of unspecified duration, sequela ([facility]) 06/22/2024 Lab Requisition [facility] Lab [address] [place] [phone] Abisai Vega MD Diffuse traumatic brain injury with loss of consciousness of unspecified duration, sequela ([facility]); Diverticulitis of large intestine without perforation or abscess without bleeding 06/19/2024 Lab Requisition [facility] Lab [address] [place] [phone] Abisai Vega MD Other intermediate (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 06/15/2024 Lab Requisition [facility] Main Lab [address] [place] [phone] Abisai Vega MD 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 termite inspector (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 06/08/2024 Lab Requisition [facility] Main Lab [address] [place] [phone] Abisai Vega MD Other termite inspector (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 06/05/2024 Lab Requisition [facility] Lab [address] [place] [phone] Abisai Vega MD Other intermediate (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 06/02/2024 Lab Requisition [facility] Lab [address] [place] [phone] Abisai Vega MD Other intermediate (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 from Last 3 Months Surgical History Surgery Date Site/Laterality Comments OTHER SURGICAL HISTORY 2003 PROCEDURE:ORIF Left tibia Medical History Medical History Date Comments Schizophrenia ([facility]) DX:Schiz ophrenia ([facility]) 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 ([facility]) 07/27/2016 DX:Schizophrenia spectrum di sorder with psychotic disorder 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 determined (HCC) Noncompliance with medication regimen 07/27/2016 DX:Noncompliance with [...] of 3 - 19+ 3-dose series) 1984 Pneumococcal Vaccine: 50+ Years (1 of 1 - PCV) 2015 Zoster Vaccines (1 of 2) 2015 Colorectal Cancer Screening: Colonoscopy 05/26/2022 Depression Screening 05/26/2022 HIV Screening 05/26/2022 Hepatitis C Screening 05/26/2022 Social Influencers of Health Screening 05/26/2022 COVID-19 Vaccine ( season) 2024 07/14/2021 Influenza Vaccine (#1) 2024 Hypertension/CHF/CAD Annual BMP Blood Test 08/03/2025 08/03/2024, 06/05/2024, 05/16/2024, Additional history exists Cholesterol Screening (Lipid Panel) 08/03/2029 08/03/2024, 06/29/2024 DTaP,Tdap,and Td Vaccines (2 - Td or Tdap) 04/12/2031 04/12/2021 RSV Immunization Patients 60+ Years Old (1 - 1-dose 75+ series) 2040 HIB Vaccines Aged Out No longer eligi [...] patient's age to complete this topic Meningococcal B Vacine Aged Out No lo nger eligible based on patient's age to complete this topic Pneumococcal Vaccine: Pediatrics (0 to 5 Years) and At-Risk Patients (6 to 64 Years) Aged Out No longer eligible based on patient's age to complete this topic RSV Immunization Patients Under 20 months Aged Out No longer eligible based on patient's age to complete this topic Varicella Vaccines Aged Out No longer eligible based on patient's age to complete this topic Procedures Procedure Name Priority Date/Time Associated Diagnosis Comments CBC WITH AUTO DIFFERENTIAL Routine 08/14/2024 6:36 AM EST Schizophrenia, unspecified (CMS/HCC) CBC AND DIFFERENTIAL Routine 08/14/2024 6:36 AM EST Schizophrenia, unspecified (CMS/HCC) CBC WITH AUTO DIFFERENTIAL Routine 08/07/2024 7:03 AM EST Other intermediate (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 CBC AND DIFFERENTIAL Routine 08/07/2024 7:03 AM EST Other intermediate (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 SST - GOLD Routine 08/03/2024 6:38 AM EST Diffuse traumatic brain injury with loss of consciousness of unspecified duration, sequela (CMS/HCC) THYROID STIMULATING HORMONE Routine 08/03/2024 6:38 AM EST Diffuse traumatic brain injury with loss of consciousness of unspecified duration, sequela (CMS/HCC) PROSTATE SPECIFIC ANTIGEN SCREEN Routine 08/03/2024 6:38 [...] sequela (CMS/HCC) CBC WITH AUTO DIFFERENTIAL Routine 2024 6:51 AM EST Essential (primary) hypertension CBC AND DIFFERENTIAL Routine 2024 6:51 AM EST Essential (primary) hypertension CBC WITH AUTO DIFFERENTIAL Routine 07/27/2024 6:30 AM EST Schizophrenia, unspecified (CMS/HCC) CBC AND DIFFERENTIAL Routine 07/27/2024 6:30 AM EST Schizophrenia, unspecified (CMS/HCC) CBC WITH AUTO DIFFERENTIAL Routine 07/24/2024 6:34 [...] DIFFERENTIAL Routine 06/19/2024 5:10 AM EST Other termite inspector (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 CBC AND DIFFERENTIAL Routine 06/19/2024 5:10 AM EST Other termite inspector (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 CBC WITH AUTO DIFFERENTIAL Routine 06/15/2024 7:05 AM EST Other termite inspector (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 CBC AND DIFFERENTIAL Routine 06/15/2024 7:05 AM EST Other termite inspector (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 CBC WITH AUTO DIFFERENTIAL Routine 06/08/2024 5:07 AM EST Other termite inspector (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 CBC AND DIFFERENTIAL Routine 06/08/2024 5:07 AM EST Other termite inspector (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 CBC WITH AUTO DIFFERENTIAL Routine 06/05/2024 7:25 AM EST Other termite inspector (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 CLONAZEPAM LEVEL Routine 06/05/2024 7:25 AM EST Other termite inspector (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 CLOZAPINE Routine 06/05/2024 7:25 AM EST Other intermediate (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 AMMONIA Routine 06/05/2024 7:25 AM EST Other intermediate (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 VALPROIC ACID LEVEL, TOTAL Routine 06/05/2024 7:25 AM EST Other intermediate (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 COMPREHENSIVE METABOLIC PANEL Routine 06/05/2024 7:25 AM EST Other termite inspector (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 CBC AND DIFFERENTIAL Routine 06/05/2024 7:25 AM EST Other termite inspector (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 CBC WITH AUTO DIFFERENTIAL Routine 06/02/2024 5:40 AM EST Other intermediate (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 THYROXINE FREE Routine 06/02/2024 5:40 AM EST Other termite inspector (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 THYROID STIMULATING HORMONE Routine 06/02/2024 5:40 AM EST Other termite inspector (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 CBC AND DIFFERENTIAL Routine 06/02/2024 5:40 AM EST Other termite inspector (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 from Last 3 Months Results * (ABNORMAL) CBC auto differential (08/14/2024 6:36 AM EST) Only the most recent of12 resultswithin the time period is included. [facility] WBC 7.1 4.8 - 10.8 K/mcL LAB HEMETOLOGY METHOD 08/14/2024 7:47 AM EST [facility] RBC 4.90 4.50 - 5.50 M/mcL LAB HEMETOLOGY METHOD 08/14/2024 7:47 AM EST [facility] Hemoglobin 14.8 13.5 - 17.5 g/dL LAB HEMETOLOGY METHOD 08/14/2024 7:47 AM [facility] Hematocrit 43.8 42.0 - 54.0 % LAB HEMETOLOGY METHOD 08/14/2024 7:47 AM [facility] MCV 89.9 79.0 - 98.0 FL LAB HEMETOLOGY METHOD 08/14/2024 7:47 AM [facility] MCH 30.4 27.0 - 32.0 pcg LAB HEMETOLOGY METHOD 08/14/2024 7:47 AM [facility] MCHC 33.8 32.0 - 37.0 g/dL LAB HEMETOLOGY METHOD 08/14/2024 7:47 AM [facility] RDW 13.3 11.0 - 15.0 % LAB HEMETOLOGY METHOD 08/14/2024 7:47 AM [facility] Platelets 245 130 - 400 K/mcL LAB HEMETOLOGY METHOD 08/14/2024 7:47 AM [facility] MPV 9.7 7.0 - 11.0 FL LAB HEMETOLOGY METHOD 08/14/2024 7:47 AM [facility] NRBC 0.0 <1.0 % LAB HEMETOLOGY METHOD 08/14/2024 7:47 AM [facility] NRBC Absolute 0.00 <0.10 K/mcL LAB HEMETOLOGY METHOD 08/14/2024 7:47 AM [facility] Neutrophils Relative 61.0 % LAB HEMETOLOGY METHOD 08/14/2024 7:47 AM [facility] Lymphocytes Relative 22.0 % LAB HEMETOLOGY METHOD 08/14/2024 7:47 AM [facility] Monocytes Relative 14.4 % LAB HEMETOLOGY METHOD 08/14/2024 7:47 AM [facility] Eosinophils Relative 1.4 % LAB HEMETOLOGY METHOD 08/14/2024 7:47 AM [facility] Basophils Relative 0.6 % LAB HEMETOLOGY METHOD 08/14/2024 7:47 AM [facility] Immature Granulocytes Relative 0.6 % LAB HEMETOLOGY METHOD 08/14/2024 7:47 AM EST [facility] Neutrophils Absolute 4.33 1.50 - 7.00 K/mcL LAB HEMETOLOGY METHOD 08/14/2024 7:47 AM EST [facility] Lymphocytes Absolute 1.56 1.00 - 5.00 K/mcL LAB HEMETOLOGY METHOD 08/14/2024 7:47 AM EST [facility] Monocytes Absolute 1.02(H) 0.20 - 1.00 K/mcL LAB HEMETOLOGY METHOD 08/14/2024 7:47 AM [facility] Eosinophils Absolute 0.10 0.00 - 0.50 K/mcL LAB HEMETOLOGY METHOD 08/14/2024 7:47 AM [facility] Basophils Absolute 0.04 0.00 - 0.20 K/mcL LAB HEMETOLOGY METHOD 08/14/2024 7:47 AM [facility] Immature Granulocytes Absolute 0.04(H) 0.00 - 0.03 K/mcL LAB HEMETOLOGY METHOD 08/14/2024 7:47 AM EST [facility] Blood Venous blood specimen / Unknown 08/14/2024 6:36 AM EST 08/14/2024 7:27 AM EST us Abisai Vega MD LAB BLOOD ORDERABLES Final Resul t [facility]) [facility] [address] [place] [address], * Prostate specific antigen screen (08/03/2024 6:38 AM EST) PSA 0.88 0.00 - 4.00 ng/mL LAB CHEMISTRY METHOD 08/03/2024 8:56 AM EST [facility] Blood Venous blood specimen / Unknown 08/03/2024 6:38 AM EST 08/03/2024 7:53 AM EST Narrative [facility] - 08/03/2024 8:56 AM EST The Siemens Advia Centaur Chemiluminescent Immunoassay is used. Results obtained with different assay methods or kits cannot be used interchangeably. Results cannot be interpreted as absolute evidence of the presence or absence of malignant disease. us Abisai Vega MD LAB BLOOD ORDERABLES Final Resul t Performing Organization Address City/[facility]/ZIP Co de Phone Number [facility] [address] [place] [address], [place] [phone] * SST tube (08/03/2024 6:38 AM EST) [facility] Extra Tube Hold for add-ons. 08/03/2024 9:01 AM EST [facility] Comment:Auto resulted. Blood Venous blood specimen / Unknown 08/03/2024 6:38 AM EST 08/03/2024 7:53 AM EST us Abisai Vega MD LAB BLOOD ORDERABLES Final Resul t Performing Organization Address [facility] de Phone Number [facility] [address] [place] [address], [place] [phone] * Lipid panel with reflex to direct LDL (08/03/2024 6:38 AM EST) Only the most recent of2 resultswithin the time period is included. Cholesterol 113 0 - 200 mg/dL LAB CHEMISTRY METHOD 08/03/2024 8:47 AM EST [facility] Triglycerides 113 0 - 150 mg/dL LAB CHEMISTRY METHOD 08/03/2024 8:47 AM EST [facility] HDL 44 >=40 mg/dL LAB CHEMISTRY METHOD 08/03/2024 8:47 AM EST [facility] LDL Calculated 46 0 - 100 mg/dL LAB CHEMISTRY METHOD 08/03/2024 8:47 AM EST [facility] VLDL Cholesterol Naun 22.6 mg/dL LAB CHEMISTRY METHOD 08/03/2024 8:47 AM EST [facility] Non HDL Chol. (LDL+VLDL) 69 <145 mg/dL LAB CHEMISTRY METHOD 08/03/2024 8:47 AM EST [facility] Chol/HDL Ratio 2.6 0.0 - 4.4 LAB CHEMISTRY METHOD 08/03/2024 8:47 AM EST [facility] Blood Venous blood specimen / Unknown 08/03/2024 6:38 AM EST 08/03/2024 7:53 AM EST us Abisai Vega MD LAB BLOOD ORDERABLES Final Resul t Performing Organization Address [facility]/ZIP Co de Phone Number [facility] [address] [place] [address], [place] [phone] * Thyroid stimulating hormone (08/03/2024 6:38 AM EST) Only the most recent of2 resultswithin the time period is included. TSH 1.19 0.40 - 4.00 mcIU/mL LAB CHEMISTRY METHOD 08/03/2024 8:57 AM [facility] Blood Venous blood specimen / Unknown 08/03/2024 6:38 AM EST 08/03/2024 7:53 AM EST us Abisai Vega MD LAB BLOOD ORDERABLES Final Resul t [facility] [address] [place] [address], [place] [phone] * Thyroxine free (08/03/2024 6:38 AM EST) Only the most recent of3 resultswithin the time period is included. Free T4 1.34 0.70 - 1.80 ng/dL LAB CHEMISTRY METHOD 08/03/2024 8:56 AM EST [facility] Blood Venous blood specimen / Unknown 08/03/2024 6:38 AM EST 08/03/2024 7:53 AM EST us Abisai Vega MD LAB BLOOD ORDERABLES Final Resul t Performing Organization Address [facility]/ZIP Co de Phone Number [facility] [address] [place] [address], [place] [phone] * Valproic acid level, total (08/03/2024 6:38 AM EST) Only the most recent of2 resultswithin the time period is included. Valproic Acid, Total 60 50 - 100 mcg/mL LAB CHEMISTRY METHOD 08/03/2024 8:47 AM [facility] Blood Venous blood specimen / Unknown 08/03/2024 6:38 AM EST 08/03/2024 7:53 AM EST us Abisai Vega MD LAB BLOOD ORDERABLES Final Resul t Performing Organization Address [facility]/ZIP Co de Phone Number [facility] [address] [place] [address], [place] [phone] * (ABNORMAL) Comprehensive metabolic panel (08/03/2024 6:38 AM EST) Only the most recent of2 resultswithin the time period is included. Sodium 140 133 - 145 mmol/L LAB CHEMISTRY METHOD 08/03/2024 8:47 AM [facility] Potassium 4.1 3.5 - 5.5 mmol/L LAB CHEMISTRY METHOD 08/03/2024 8:47 AM [facility] Chloride 105 96 - 110 mmol/L LAB CHEMISTRY METHOD 08/03/2024 8:47 AM [facility] CO2 29 21 - 32 mmol/L LAB CHEMISTRY METHOD 08/03/2024 8:47 AM [facility] Anion Gap 6 3 - 11 LAB CHEMISTRY METHOD 08/03/2024 8:47 AM [facility] Glucose 83 70 - 100 mg/dL LAB CHEMISTRY METHOD 08/03/2024 8:47 AM [facility] BUN 16 5 - 25 mg/dL LAB CHEMISTRY METHOD 08/03/2024 8:47 AM [facility] Creatinine 0.62(L) 0.70 - 1.30 mg/dL LAB CHEMISTRY METHOD 08/03/2024 8:47 AM [facility] eGFR 110 >=60 mL/min/1. 73m2 LAB CHEMISTRY METHOD 08/03/2024 8:47 AM [facility] Comment:Calculation based on the??Chronic Kidney Disease Epidemiology Collaboration (CKD-EPI) equation refit??without adjustment for race. BUN/Creatinine Ratio 25.8 LAB CHEMISTRY METHOD 08/03/2024 8:47 AM [facility] Calcium 9.5 8.5 - 10.5 mg/dL LAB CHEMISTRY METHOD 08/03/2024 8:47 AM [facility] AST (SGOT) 12 10 - 42 unit/L LAB CHEMISTRY METHOD 08/03/2024 8:47 AM [facility] ALT (SGPT) 21 10 - 60 unit/L LAB CHEMISTRY METHOD 08/03/2024 8:47 AM [facility] Alkaline Phosphatase 92 42 - 121 unit/L LAB CHEMISTRY METHOD 08/03/2024 8:47 AM [facility] Total Protein 6.4 6.0 - 8.0 g/dL LAB CHEMISTRY METHOD 08/03/2024 8:47 AM [facility] Albumin 3.5 3.2 - 5.0 g/dL LAB CHEMISTRY METHOD 08/03/2024 8:47 AM [facility] Total Bilirubin 0.8 0.0 - 1.4 mg/dL LAB CHEMISTRY METHOD 08/03/2024 8:47 AM [facility] Blood Venous blood specimen / Unknown 08/03/2024 6:38 AM EST 08/03/2024 7:53 AM EST us Abisai Vega MD LAB BLOOD ORDERABLES Final Resul t Performing Organization Address [facility] de Phone Number [facility] [address] [place] [address], [place] [phone] * Prostate specific antigen diagnostic (06/29/2024 6:36 AM EST) PSA 0.93 0.00 - 4.00 ng/mL LAB CHEMISTRY METHOD 06/29/2024 9:39 AM EST [facility] Blood Venous blood specimen / Unknown 06/29/2024 6:36 AM EST 06/29/2024 7:23 AM EST Narrative [facility] - 06/29/2024 9:39 AM EST The Siemens Advia Eyepicaur Chemiluminescent Immunoassay is used. Results obtained with different assay methods or kits cannot be used interchangeably. Results cannot be interpreted as absolute evidence of the presence or absence of malignant disease. us Abisai Vega MD LAB BLOOD ORDERABLES Final Resul t Performing Organization Address [facility] de Phone Number [facility] [address] [place] [address], [place] [phone] * Clozapine (06/05/2024 7:25 AM EST) Clozapine [...] developed and the performance characteristics determined by [facility]. This confirmation testing has not been cleared or approved by the FDA. The laboratory is regulated under CLIA as qualified to perform high-complexity testing. This test is used for patient testing purposes. It should not be regarded as investigational or for research. Test performed at [facility], [address] [place], [place] ??[address] ? [phone] Rosalie Villalba MD, PhD - Engineer Automated Equipment Blood Venous blood specimen / Unknown 06/05/2024 7:25 AM EST 06/05/2024 8:00 AM EST us Abisai Vega MD LAB BLOOD ORDERABLES Final Resul t Performing Organization Address [facility] de Phone Number [facility] [address] [place] [address] * Clonazepam level (06/05/2024 7:25 AM EST) Clonazepam <10 15 - 60 ng/mL 06/07/2024 9:54 AM EST [facility] Comment: Clonazepam (Klonopin)toxic level: ??>80 ng/mL If applicable, any drug confirmation testing reported here was developed and the performance characteristics determined by [facility]. This confirmation testing has not been cleared or approved by the FDA. The laboratory is regulated under CLIA as qualified to perform high-complexity testing. This test is used for patient testing purposes. It should not be regarded as investigational or for research. Test performed at [facility], [address] [place], [place] ??[address] ? [phone] Rosalie Villalba MD, PhD - Engineer Automated Equipment Blood Venous blood specimen / Unknown 06/05/2024 7:25 AM EST 06/05/2024 8:00 AM EST us Abisai Vega MD LAB BLOOD ORDERABLES Final Resul t Performing Organization Address [facility] Co de Phone Number [facility] [address] [place] [address] * (ABNORMAL) Ammonia (06/05/2024 7:25 AM EST) Ammonia 39(H) 11 - 35 mcmol/L LAB CHEMISTRY METHOD 06/05/2024 8:[address] [facility] Blood Venous blood specimen / Unknown 06/05/2024 7:25 AM EST 06/05/2024 8:00 AM EST us Abisai Vega MD LAB BLOOD ORDERABLES Final Resul t 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
--- OUTSIDE RECORDS SUMMARY | 2024-08-23 17:41 | XMS_ITS | Encounter Summary ---
Author Organization [facility] Address [address] [place] [address] Care Team Providers Care Backup Administrative Coordinator Name Role Phone Ronald Webster MD Primary Care Provider +1- [phone] Encounter Details Date Type Department Care Team (Late st Contact Info) Description 07/27/2024 Lab Requisition [facility] - Main Lab [address] [place] [address] Abisai Vega MD [address] [place] [address] [address] [place] Schizophrenia, unspecified (CMS/HCC) Social History Tobacco Use [...] Diagnosis Comments CBC WITH AUTO DIFFERENTIAL Routine 07/27/2024 6:30 AM EST Schizophrenia, unspecified (CMS/HCC) CBC AND DIFFERENTIAL Routine 07/27/2024 6:30 AM EST Schizophrenia, unspecified (CMS/HCC) documented in this encounter Results * (ABNORMAL) CBC auto differential (07/27/2024 6:30 AM EST) WBC 10.1 4.8 - 10.8 K/[facility] LAB HEMETOLOGY METHOD 07/27/2024 8:26 AM EST [facility] LAB RBC 4.50 4.50 - 5.50 M/mcL LAB HEMETOLOGY METHOD 07/27/2024 8:26 AM [facility] LAB Hemoglobin 13.5 13.5 - 17.5 g/dL LAB HEMETOLOGY METHOD 07/27/2024 8:26 AM [facility] LAB Hematocrit 41.0(L) 42.0 - 54.0 % LAB HEMETOLOGY METHOD 07/27/2024 8:26 AM [facility] LAB MCV 91.9 79.0 - 98.0 FL LAB HEMETOLOGY METHOD 07/27/2024 8:26 AM [facility] LAB MCH 30.3 27.0 - 32.0 pcg LAB HEMETOLOGY METHOD 07/27/2024 8:26 AM [facility] LAB MCHC 32.9 32.0 - 37.0 g/dL LAB HEMETOLOGY METHOD 07/27/2024 8:26 AM [facility] LAB RDW 13.8 11.0 - 15.0 % LAB HEMETOLOGY METHOD 07/27/2024 8:26 AM [facility] LAB Platelets 227 130 - 400 K/mcL LAB HEMETOLOGY METHOD 07/27/2024 8:26 AM [facility] LAB MPV 10.3 7.0 - 11.0 FL LAB HEMETOLOGY METHOD 07/27/2024 8:26 AM [facility] LAB NRBC 0.0 <1.0 % LAB HEMETOLOGY METHOD 07/27/2024 8:26 AM [facility] LAB NRBC Absolute 0.00 <0.10 K/mcL LAB HEMETOLOGY METHOD 07/27/2024 8:26 AM [facility] LAB Neutrophils Relative 69.2 % LAB HEMETOLOGY METHOD 07/27/2024 8:26 AM [facility] LAB Lymphocytes Relative 16.0 % LAB HEMETOLOGY METHOD 07/27/2024 8:26 AM [facility] LAB Monocytes Relative 13.2 % LAB HEMETOLOGY METHOD 07/27/2024 8:26 AM EST [facility] LAB Eosinophils Relative 1.0 % LAB HEMETOLOGY METHOD 07/27/2024 8:26 AM [facility] LAB Basophils Relative 0.3 % LAB HEMETOLOGY METHOD 07/27/2024 8:26 AM [facility] LAB Immature Granulocytes Relative 0.3 % LAB HEMETOLOGY METHOD 07/27/2024 8:26 AM [facility] LAB Neutrophils Absolute 7.00 1.50 - 7.00 K/mcL LAB HEMETOLOGY METHOD 07/27/2024 8:26 AM [facility] LAB Lymphocytes Absolute 1.62 1.00 - 5.00 K/mcL LAB HEMETOLOGY METHOD 07/27/2024 8:26 AM [facility] LAB Monocytes Absolute 1.33(H) 0.20 - 1.00 K/mcL LAB HEMETOLOGY METHOD 07/27/2024 8:26 AM [facility] LAB Eosinophils Absolute 0.10 0.00 - 0.50 K/mcL LAB HEMETOLOGY METHOD 07/27/2024 8:26 AM [facility] LAB Basophils Absolute 0.03 0.00 - 0.20 K/mcL LAB HEMETOLOGY METHOD 07/27/2024 8:26 AM [facility] LAB Immature Granulocytes Absolute 0.03 0.00 - 0.03 K/mcL LAB HEMETOLOGY METHOD 07/27/2024 8:26 AM [facility] LAB Blood Venous blood specimen / Unknown 07/27/2024 6:30 AM EST 07/27/2024 7:07 AM EST us Abisai Vega MD LAB BLOOD ORDERABLES Final Resul t [facility] LAB [address] [place] [address], [place] [phone] documented in this encounter Visit Diagnoses Diagnosis Schizophrenia, unspecified (CMS/HCC) documented in this encounter Care Teams Backup Administrative Coordinator Relationship Specialty Start Date End Date Ronald Webster MD [address] [address] PCP - General Boom Supervisor 04/12/21 documented as of this encounter
--- OUTSIDE RECORDS SUMMARY | 2024-08-23 17:41 | XMS_ITS | Encounter Summary ---
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 Social History Tobacco Use [...] DIFFERENTIAL Routine 06/08/2024 5:07 AM EST Other fpc (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 CBC AND DIFFERENTIAL Routine 06/08/2024 5:07 AM EST Other buttermaker helper (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 documented in this encounter Results * (ABNORMAL) CBC auto differential (06/08/2024 5:07 AM EST) WBC 6.6 4.8 - 10.8 K/[facility] LAB HEMETOLOGY METHOD 06/08/2024 6:[address] [facility] LAB RBC 4.60 4.50 - 5.50 M/[facility] LAB HEMETOLOGY METHOD 06/08/2024 6:33 AM [facility] LAB Hemoglobin 14.0 13.5 - 17.5 g/dL LAB HEMETOLOGY METHOD 06/08/2024 6:33 AM [facility] LAB Hematocrit 42.0 42.0 - 54.0 % LAB HEMETOLOGY METHOD 06/08/2024 6:33 AM [facility] LAB MCV 92.3 79.0 - 98.0 FL LAB HEMETOLOGY METHOD 06/08/2024 6:33 AM [facility] LAB MCH 30.8 27.0 - 32.0 pcg LAB HEMETOLOGY METHOD 06/08/2024 6:33 AM [facility] LAB MCHC 33.3 32.0 - 37.0 g/dL LAB HEMETOLOGY METHOD 06/08/2024 6:33 AM [facility] LAB RDW 12.7 11.0 - 15.0 % LAB HEMETOLOGY METHOD 06/08/2024 6:33 AM [facility] LAB Platelets 255 130 - 400 K/mcL LAB HEMETOLOGY METHOD 06/08/2024 6:33 AM [facility] LAB MPV 9.7 7.0 - 11.0 FL LAB HEMETOLOGY METHOD 06/08/2024 6:33 AM [facility] LAB NRBC 0.0 <1.0 % LAB HEMETOLOGY METHOD 06/08/2024 6:33 AM [facility] LAB NRBC Absolute 0.00 <0.10 K/mcL LAB HEMETOLOGY METHOD 06/08/2024 6:33 AM [facility] LAB Neutrophils Relative 56.4 % LAB HEMETOLOGY METHOD 06/08/2024 6:33 AM [facility] LAB Lymphocytes Relative 25.9 % LAB HEMETOLOGY METHOD 06/08/2024 6:33 AM [facility] LAB Monocytes Relative 12.1 % LAB HEMETOLOGY METHOD 06/08/2024 6:[address] [facility] LAB Eosinophils Relative 4.2 % LAB HEMETOLOGY METHOD 06/08/2024 6:33 AM [facility] LAB Basophils Relative 0.8 % LAB HEMETOLOGY METHOD 06/08/2024 6:33 AM [facility] LAB Immature Granulocytes Relative 0.6 % LAB HEMETOLOGY METHOD 06/08/2024 6:[address] [facility] LAB Neutrophils Absolute 3.71 1.50 - 7.00 K/mcL LAB HEMETOLOGY METHOD 06/08/2024 6:33 AM [facility] LAB Lymphocytes Absolute 1.71 1.00 - 5.00 K/mcL LAB HEMETOLOGY METHOD 06/08/2024 6:33 AM [facility] LAB Monocytes Absolute 0.80 0.20 - 1.00 K/mcL LAB HEMETOLOGY METHOD 06/08/2024 6:[address] [facility] LAB Eosinophils Absolute 0.28 0.00 - 0.50 K/mcL LAB HEMETOLOGY METHOD 06/08/2024 6:33 AM [facility] LAB Basophils Absolute 0.05 0.00 - 0.20 K/mcL LAB HEMETOLOGY METHOD 06/08/2024 6:33 AM [facility] LAB Immature Granulocytes Absolute 0.04(H) 0.00 - 0.03 K/mcL LAB HEMETOLOGY METHOD 06/08/2024 6:33 AM [facility] LAB Blood Venous blood specimen / Unknown 06/08/2024 5:07 AM EST 06/08/2024 5:47 AM EST us Abisai Vega MD LAB BLOOD ORDERABLES Final Resul t [facility] LAB [address] [place] [address], documented in this encounter Visit Diagnoses Diagnosis Other buttermaker helper (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 documented in this encounter Care Teams Clinical Program Coordinator Relationship Specialty Start Date End Date Ronald Webster MD [address] [address] PCP - General Manager Traffic 04/12/21 documented as of this encounter
--- OUTSIDE RECORDS SUMMARY | 2024-08-23 17:42 | XMS_ITS | Encounter Summary ---
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 LAB HEMETOLOGY METHOD 06/19/2024 6:31 AM EST [facility] LAB RBC 4.50 4.50 - 5.50 M/[facility] LAB HEMETOLOGY METHOD 06/19/2024 6:31 AM [facility] LAB Hemoglobin 13.8 13.5 - 17.5 g/dL LAB HEMETOLOGY METHOD 06/19/2024 6:31 AM [facility] LAB Hematocrit 41.8(L) 42.0 - 54.0 % LAB HEMETOLOGY METHOD 06/19/2024 6:31 AM [facility] LAB MCV 92.1 79.0 - 98.0 FL LAB HEMETOLOGY METHOD 06/19/2024 6:31 AM [facility] LAB MCH 30.4 27.0 - 32.0 pcg LAB HEMETOLOGY METHOD 06/19/2024 6:31 AM [facility] LAB MCHC 33.0 32.0 - 37.0 g/dL LAB HEMETOLOGY METHOD 06/19/2024 6:31 AM [facility] LAB RDW 12.6 11.0 - 15.0 % LAB HEMETOLOGY METHOD 06/19/2024 6:31 AM [facility] LAB Platelets 254 130 - 400 K/mcL LAB HEMETOLOGY METHOD 06/19/2024 6:31 AM [facility] LAB MPV 9.5 7.0 - 11.0 FL LAB HEMETOLOGY METHOD 06/19/2024 6:31 AM [facility] LAB NRBC 0.0 <1.0 % LAB HEMETOLOGY METHOD 06/19/2024 6:31 AM [facility] LAB NRBC Absolute 0.00 <0.10 K/mcL LAB HEMETOLOGY METHOD 06/19/2024 6:31 AM [facility] LAB Neutrophils Relative 55.4 % LAB HEMETOLOGY METHOD 06/19/2024 6:31 AM [facility] LAB Lymphocytes Relative 26.8 % LAB HEMETOLOGY METHOD 06/19/2024 6:31 AM [facility] LAB Monocytes Relative 14.3 % LAB HEMETOLOGY METHOD 06/19/2024 6:31 AM EST [facility] LAB Eosinophils Relative 2.3 % LAB HEMETOLOGY METHOD 06/19/2024 6:31 AM [facility] LAB Basophils Relative 0.5 % LAB HEMETOLOGY METHOD 06/19/2024 6:31 AM [facility] LAB Immature Granulocytes Relative 0.7 % LAB HEMETOLOGY METHOD 06/19/2024 6:31 AM [facility] LAB Neutrophils Absolute 4.08 1.50 - 7.00 K/mcL LAB HEMETOLOGY METHOD 06/19/2024 6:31 AM [facility] LAB Lymphocytes Absolute 1.97 1.00 - 5.00 K/mcL LAB HEMETOLOGY METHOD 06/19/2024 6:31 AM [facility] LAB Monocytes Absolute 1.05(H) 0.20 - 1.00 K/mcL LAB HEMETOLOGY METHOD 06/19/2024 6:31 AM EST [facility] LAB Eosinophils Absolute 0.17 0.00 - 0.50 K/mcL LAB HEMETOLOGY METHOD 06/19/2024 6:31 AM [facility] LAB Basophils Absolute 0.04 0.00 - 0.20 K/mcL LAB HEMETOLOGY METHOD 06/19/2024 6:31 AM [facility] LAB Immature Granulocytes Absolute 0.05(H) 0.00 - 0.03 K/mcL LAB HEMETOLOGY METHOD 06/19/2024 6:31 AM [facility] LAB Blood Venous blood specimen / Unknown 06/19/2024 5:10 AM EST 06/19/2024 6:14 AM EST us Abisai Vega MD LAB BLOOD ORDERABLES Final Resul t [facility] LAB [address] [place] [address], [place] [phone] documented in this encounter Visit Diagnoses Diagnosis Other formula technician (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 documented in this encounter Care Teams Cosmetic Assembler Relationship Specialty Start Date End Date Ronald Webster MD [address] [address] PCP - General Drupal Php Developer 04/12/21 documented as of this encounter
--- OUTSIDE RECORDS SUMMARY | 2024-08-23 17:42 | XMS_ITS | Encounter Summary ---
Author Organization [facility] Address [address] [place] [address] Care Team Providers Care Lining Closer Name Role Phone Ronald Webster MD Primary Care Provider +1- [phone] Encounter Details Date Type Department Care Team (Late st Contact Info) Description 08/07/2024 Lab Requisition [facility] - Main Lab [address] [place] [address] Abisai Vega MD [address] [place] [address] [address] [place], [place] Other long term care administrator (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 Social History Tobacco Use [...] Diagnosis Comments CBC WITH AUTO DIFFERENTIAL Routine 08/07/2024 7:03 AM EST Other jail (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 CBC AND DIFFERENTIAL Routine 08/07/2024 7:03 AM EST Other long term care administrator (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 documented in this encounter Results * (ABNORMAL) CBC auto differential (08/07/2024 7:03 AM EST) WBC 6.9 4.8 - 10.8 K/[facility] LAB HEMETOLOGY METHOD 08/07/2024 8:[address] [facility] LAB RBC 4.80 4.50 - 5.50 M/[facility] LAB HEMETOLOGY METHOD 08/07/2024 8:31 AM [facility] LAB Hemoglobin 14.4 13.5 - 17.5 g/dL LAB HEMETOLOGY METHOD 08/07/2024 8:31 AM [facility] LAB Hematocrit 44.0 42.0 - 54.0 % LAB HEMETOLOGY METHOD 08/07/2024 8:31 AM [facility] LAB MCV 90.9 79.0 - 98.0 FL LAB HEMETOLOGY METHOD 08/07/2024 8:31 AM [facility] LAB MCH 29.8 27.0 - 32.0 pcg LAB HEMETOLOGY METHOD 08/07/2024 8:31 AM [facility] LAB MCHC 32.7 32.0 - 37.0 g/dL LAB HEMETOLOGY METHOD 08/07/2024 8:31 AM [facility] LAB RDW 13.4 11.0 - 15.0 % LAB HEMETOLOGY METHOD 08/07/2024 8:31 AM [facility] LAB Platelets 255 130 - 400 K/mcL LAB HEMETOLOGY METHOD 08/07/2024 8:31 AM [facility] LAB MPV 9.7 7.0 - 11.0 FL LAB HEMETOLOGY METHOD 08/07/2024 8:31 AM [facility] LAB NRBC 0.0 <1.0 % LAB HEMETOLOGY METHOD 08/07/2024 8:31 AM [facility] LAB NRBC Absolute 0.00 <0.10 K/mcL LAB HEMETOLOGY METHOD 08/07/2024 8:31 AM [facility] LAB Neutrophils Relative 62.0 % LAB HEMETOLOGY METHOD 08/07/2024 8:31 AM [facility] LAB Lymphocytes Relative 20.6 % LAB HEMETOLOGY METHOD 08/07/2024 8:31 AM [facility] LAB Monocytes Relative 14.7 % LAB HEMETOLOGY METHOD 08/07/2024 8:[address] [facility] LAB Eosinophils Relative 1.4 % LAB HEMETOLOGY METHOD 08/07/2024 8:31 AM [facility] LAB Basophils Relative 0.6 % LAB HEMETOLOGY METHOD 08/07/2024 8:31 AM [facility] LAB Immature Granulocytes Relative 0.7 % LAB HEMETOLOGY METHOD 08/07/2024 8:[address] [facility] LAB Neutrophils Absolute 4.30 1.50 - 7.00 K/mcL LAB HEMETOLOGY METHOD 08/07/2024 8:31 AM [facility] LAB Lymphocytes Absolute 1.43 1.00 - 5.00 K/mcL LAB HEMETOLOGY METHOD 08/07/2024 8:31 AM [facility] LAB Monocytes Absolute 1.02(H) 0.20 - 1.00 K/mcL LAB HEMETOLOGY METHOD 08/07/2024 8:[address] [facility] LAB Eosinophils Absolute 0.10 0.00 - 0.50 K/mcL LAB HEMETOLOGY METHOD 08/07/2024 8:31 AM [facility] LAB Basophils Absolute 0.04 0.00 - 0.20 K/mcL LAB HEMETOLOGY METHOD 08/07/2024 8:31 AM [facility] LAB Immature Granulocytes Absolute 0.05(H) 0.00 - 0.03 K/mcL LAB HEMETOLOGY METHOD 08/07/2024 8:31 AM [facility] LAB Blood Venous blood specimen / Unknown 08/07/2024 7:03 AM EST 08/07/2024 8:25 AM EST us Abisai Vega MD LAB BLOOD ORDERABLES Final Resul t [facility] LAB [address] [place], [place] [address] [phone] documented in this encounter Visit Diagnoses Diagnosis Other jail (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 documented in this encounter Care Teams Lining Closer Relationship Specialty Start Date End Date Ronald Webster MD [address] [address] PCP - General Ios Developer 04/12/21 documented as of this encounter
--- OUTSIDE RECORDS SUMMARY | 2024-08-23 17:42 | XMS_ITS | Encounter Summary ---
Author Organization [facility] Address [address] [place] [address] Care Team Providers Care User Acceptance Tester Name Role Phone Ronald Webster MD Primary Care Provider +1- [phone] Encounter Details Date Type Department Care Team (Late st Contact Info) Description 07/24/2024 Lab Requisition [facility] - Main Lab [address] [place] [address] Abisai Vega MD [address] [place] [address] [address] [place] Hypothyroidism, unspecified; Schizophrenia, unspecified (CMS/HCC) Social History [...] AM EST) WBC 8.2 4.8 - 10.8 /[facility] LAB HEMETOLOGY METHOD 07/24/2024 8:58 AM EST [facility] RBC 4.60 4.50 - 5.50 M/mcL LAB HEMETOLOGY METHOD 07/24/2024 8:58 AM [facility] LAB Hemoglobin 13.9 13.5 - 17.5 g/dL LAB HEMETOLOGY METHOD 07/24/2024 8:58 AM [facility] LAB Hematocrit 41.5(L) 42.0 - 54.0 % LAB HEMETOLOGY METHOD 07/24/2024 8:58 AM [facility] LAB MCV 90.2 79.0 - 98.0 FL LAB HEMETOLOGY METHOD 07/24/2024 8:58 AM [facility] LAB MCH 30.2 27.0 - 32.0 pcg LAB HEMETOLOGY METHOD 07/24/2024 8:58 AM [facility] LAB MCHC 33.5 32.0 - 37.0 g/dL LAB HEMETOLOGY METHOD 07/24/2024 8:58 AM [facility] LAB RDW 13.4 11.0 - 15.0 % LAB HEMETOLOGY METHOD 07/24/2024 8:58 AM [facility] LAB Platelets 239 130 - 400 K/mcL LAB HEMETOLOGY METHOD 07/24/2024 8:58 AM [facility] LAB MPV 9.5 7.0 - 11.0 FL LAB HEMETOLOGY METHOD 07/24/2024 8:58 AM [facility] LAB NRBC 0.0 <1.0 % LAB HEMETOLOGY METHOD 07/24/2024 8:58 AM [facility] LAB NRBC Absolute 0.00 <0.10 K/mcL LAB HEMETOLOGY METHOD 07/24/2024 8:58 AM [facility] LAB Neutrophils Relative 62.8 % LAB HEMETOLOGY METHOD 07/24/2024 8:58 AM [facility] LAB Lymphocytes Relative 20.1 % LAB HEMETOLOGY METHOD 07/24/2024 8:58 AM [facility] LAB Monocytes Relative 14.6 % LAB HEMETOLOGY METHOD 07/24/2024 8:58 AM [facility] LAB Eosinophils Relative 1.7 % LAB HEMETOLOGY METHOD 07/24/2024 8:58 AM [facility] LAB Basophils Relative 0.4 % LAB HEMETOLOGY METHOD 07/24/2024 8:58 AM [facility] LAB Immature Granulocytes Relative 0.4 % LAB HEMETOLOGY METHOD 07/24/2024 8:58 AM [facility] LAB Neutrophils Absolute 5.16 1.50 - 7.00 K/mcL LAB HEMETOLOGY METHOD 07/24/2024 8:58 AM [facility] LAB Lymphocytes Absolute 1.65 1.00 - 5.00 K/mcL LAB HEMETOLOGY METHOD 07/24/2024 8:58 AM [facility] LAB Monocytes Absolute 1.20(H) 0.20 - 1.00 K/mcL LAB HEMETOLOGY METHOD 07/24/2024 8:58 AM [facility] LAB Eosinophils Absolute 0.14 0.00 - 0.50 K/mcL LAB HEMETOLOGY METHOD 07/24/2024 8:58 AM [facility] LAB Basophils Absolute 0.03 0.00 - 0.20 K/mcL LAB HEMETOLOGY METHOD 07/24/2024 8:58 AM [facility] LAB Immature Granulocytes Absolute 0.03 0.00 - 0.03 K/mcL LAB HEMETOLOGY METHOD 07/24/2024 8:58 AM [facility] LAB Blood Venous blood specimen / Unknown 07/24/2024 6:34 AM EST 07/24/2024 8:19 AM EST us Abisai Vega MD LAB BLOOD ORDERABLES Final Resul t [facility] [address] [place] [address], documented in this encounter Visit Diagnoses Diagnosis Hypothyroidism, unspecified Schizophrenia, unspecified (CMS/HCC) documented in this encounter Care Teams User Acceptance Tester Relationship Specialty Start Date End Date Ronald Webster MD [address] [facility] [address] [place] [address] PCP - General Ore Miner Blasting 04/12/21 documented as of this encounter
--- OUTSIDE RECORDS SUMMARY | 2024-08-23 17:42 | XMS_ITS | Encounter Summary ---
Author Organization [facility] Address [address] [place] [address] Care Team Providers Care Change Control Coordinator Name Role Phone Ronald Webster MD Primary Care Provider [phone]- [phone] Encounter Details Date Type Department Care Team (Late st Contact Info) Description 05/16/2024 Lab Requisition [facility] - Main Lab [address] [facility] [place] [address] Abisai Vega MD [address] [place] [address] [address] [place], [place] Diffuse traumatic brain injury with loss [...] CBC auto differential (05/16/2024 6:45 AM EST) Pathologist [facility] WBC 9.6 4.8 - 10.8 K/mcL LAB HEMETOLOGY METHOD 05/16/2024 8:27 AM [facility] RBC 4.60 4.50 - 5.50 M/mcL LAB HEMETOLOGY METHOD 05/16/2024 8:27 AM [facility] Hemoglobin 14.2 13.5 - 17.5 g/dL LAB HEMETOLOGY METHOD 05/16/2024 8:27 AM [facility] Hematocrit 43.1 42.0 - 54.0 % LAB HEMETOLOGY METHOD 05/16/2024 8:27 AM [facility] MCV 93.7 79.0 - 98.0 FL LAB HEMETOLOGY METHOD 05/16/2024 8:27 AM [facility] MCH 30.9 27.0 - 32.0 pcg LAB HEMETOLOGY METHOD 05/16/2024 8:27 AM [facility] MCHC 32.9 32.0 - 37.0 g/dL LAB HEMETOLOGY METHOD 05/16/2024 8:27 AM [facility] RDW 12.9 11.0 - 15.0 % LAB HEMETOLOGY METHOD 05/16/2024 8:27 AM [facility] Platelets 227 130 - 400 K/mcL LAB HEMETOLOGY METHOD 05/16/2024 8:27 AM [facility] MPV 9.9 7.0 - 11.0 FL LAB HEMETOLOGY METHOD 05/16/2024 8:27 AM [facility] NRBC 0.0 <1.0 % LAB HEMETOLOGY METHOD 05/16/2024 8:27 AM [facility] NRBC Absolute 0.00 <0.10 K/mcL LAB HEMETOLOGY METHOD 05/16/2024 8:27 AM [facility] Neutrophils Relative 68.4 % LAB HEMETOLOGY METHOD 05/16/2024 8:27 AM [facility] Lymphocytes Relative 16.8 % LAB HEMETOLOGY METHOD 05/16/2024 8:27 AM [facility] Monocytes Relative 12.0 % LAB HEMETOLOGY METHOD 05/16/2024 8:27 AM [facility] Eosinophils Relative 1.7 % LAB HEMETOLOGY METHOD 05/16/2024 8:27 AM [facility] Basophils Relative 0.3 % LAB HEMETOLOGY METHOD 05/16/2024 8:27 AM [facility] Immature Granulocytes Relative 0.8 % LAB HEMETOLOGY METHOD 05/16/2024 8:27 AM [facility] Neutrophils Absolute 6.54 1.50 - 7.00 K/mcL LAB HEMETOLOGY METHOD 05/16/2024 8:27 AM [facility] Lymphocytes Absolute 1.61 1.00 - 5.00 K/mcL LAB HEMETOLOGY METHOD 05/16/2024 8:27 AM [facility] Monocytes Absolute 1.15(H) 0.20 - 1.00 K/mcL LAB HEMETOLOGY METHOD 05/16/2024 8:27 AM [facility] Eosinophils Absolute 0.16 0.00 - 0.50 K/mcL LAB HEMETOLOGY METHOD 05/16/2024 8:27 AM [facility] Basophils Absolute 0.03 0.00 - 0.20 K/mcL LAB HEMETOLOGY METHOD 05/16/2024 8:27 AM EST [facility] Immature Granulocytes Absolute 0.08(H) 0.00 - 0.03 K/mcL LAB HEMETOLOGY METHOD 05/16/2024 8:27 AM EST [facility] Blood Venous blood specimen / Unknown 05/16/2024 6:45 AM EST 05/16/2024 7:53 AM EST us Abisai Vega MD LAB BLOOD ORDERABLES Final Resul t [facility] [address] [place] [address], * (ABNORMAL) Clozapine (05/16/2024 6:45 AM EST) Clozapine 264 200 - 700 ng/mL 05/18/2024 9:05 AM EST [facility] Comment:Clozapine (Clozaril) toxic level: >1000 ng/mL Norclozapine 132(L) 200 - 700 ng/mL 05/18/2024 9:05 AM EST [facility] Comment: For Refractory Schizophrenia, at least [...] developed and the performance characteristics determined by [facility]. This confirmation testing has not been cleared or approved by the FDA. The laboratory is regulated under CLIA as qualified to perform high-complexity testing. This test is used for patient testing purposes. It should not be regarded as investigational or for research. Test performed at [facility], [address] , [place], [place] ??[address] ? [phone] Rosalie Villalba MD, PhD - Manager [employer] Blood Venous blood specimen / Unknown 05/16/2024 6:45 AM EST 05/16/2024 7:53 AM EST us Abisai Veag MD LAB BLOOD ORDERABLES Final Resul t [place] [address] * (ABNORMAL) Comprehensive metabolic panel (05/16/2024 6:45 AM EST) Pathologist [facility] Sodium 143 133 - 145 mmol/L LAB CHEMISTRY METHOD 05/16/2024 8:36 AM [facility] Potassium 4.4 3.5 - 5.5 mmol/L LAB CHEMISTRY METHOD 05/16/2024 8:36 AM [facility] Chloride 109 96 - 110 mmol/L LAB CHEMISTRY METHOD 05/16/2024 8:36 AM [facility] CO2 30 21 - 32 mmol/L LAB CHEMISTRY METHOD 05/16/2024 8:36 AM [facility] Anion Gap 4 3 - 11 LAB CHEMISTRY METHOD 05/16/2024 8:36 AM [facility] Glucose 83 70 - 100 mg/dL LAB CHEMISTRY METHOD 05/16/2024 8:36 AM [facility] BUN 20 5 - 25 mg/dL LAB CHEMISTRY METHOD 05/16/2024 8:36 AM [facility] Creatinine 0.67(L) 0.70 - 1.30 mg/dL LAB CHEMISTRY METHOD 05/16/2024 8:36 AM [facility] eGFR 108 >=60 mL/min/1. 73m2 LAB CHEMISTRY METHOD 05/16/2024 8:36 AM [facility] Comment:Calculation based on the??Chronic Kidney Disease Epidemiology Collaboration (CKD-EPI) equation refit??without adjustment for race. BUN/Creatinine Ratio 29.9 LAB CHEMISTRY METHOD 05/16/2024 8:36 AM [facility] Calcium 8.7 8.5 - 10.5 mg/dL LAB CHEMISTRY METHOD 05/16/2024 8:36 AM [facility] AST (SGOT) 19 10 - 42 unit/L LAB CHEMISTRY METHOD 05/16/2024 8:36 AM [facility] ALT (SGPT) 34 10 - 60 unit/L LAB CHEMISTRY METHOD 05/16/2024 8:36 AM [facility] Alkaline Phosphatase 91 42 - 121 unit/L LAB CHEMISTRY METHOD 05/16/2024 8:36 AM [facility] Total Protein 5.9(L) 6.0 - 8.0 g/dL LAB CHEMISTRY METHOD 05/16/2024 8:36 AM [facility] Albumin 3.2 3.2 - 5.0 g/dL LAB CHEMISTRY METHOD 05/16/2024 8:36 AM [facility] Total Bilirubin 0.6 0.0 - 1.4 mg/dL LAB CHEMISTRY METHOD 05/16/2024 8:36 AM [facility] Blood Venous blood specimen / Unknown 05/16/2024 6:45 AM EST 05/16/2024 7:53 AM EST us Abisia Vega MD LAB BLOOD ORDERABLES Final Resul t [facility] [address] [place] [address], documented in this encounter Visit Diagnoses Diagnosis Diffuse traumatic brain injury with loss of consciousness of unspecified duration, initial encounter (CMS/HCC) Schizophrenia, unspecified (CMS/HCC) documented in this encounter Care Teams Change Control Coordinator Relationship Specialty Start Date End Date Ronald Webster MD [address] [facility] [address] [place] [address] PCP - General Gasoline Pump Mechanic 04/12/21 documented as of this encounter
--- OUTSIDE RECORDS SUMMARY | 2024-08-23 17:42 | XMS_ITS | Encounter Summary ---
Author Organization [facility] Address [address] [place] [address] Care Team Providers Care News Specialist Name Role Phone Ronald Webster MD Primary Care Provider +1- [phone] Encounter Details Date Type Department Care Team (Late st Contact Info) Description 06/02/2024 Lab Requisition [facility] - Main Lab [address] [facility] [address] [place] [address] Abisai Vega MD [address] [place] [address] [address] [place], [place] Other terminal supervisor (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 Social History Tobacco Use [...] DIFFERENTIAL Routine 06/02/2024 5:40 AM EST Other snf (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 CBC AND DIFFERENTIAL Routine 06/02/2024 5:40 AM EST Other terminal supervisor (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 THYROID STIMULATING HORMONE Routine 06/02/2024 5:40 AM EST Other snf (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 THYROXINE FREE Routine 06/02/2024 5:40 AM EST Other snf (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 documented in this encounter Results * (ABNORMAL) CBC auto differential (06/02/2024 5:40 AM EST) [facility] WBC 4.5(L) 4.8 - 10.8 K/mcL LAB HEMETOLOGY METHOD 06/02/2024 6:36 AM [facility] RBC 4.50 4.50 - 5.50 M/mcL LAB HEMETOLOGY METHOD 06/02/2024 6:36 AM [facility] Hemoglobin 13.7 13.5 - 17.5 g/dL LAB HEMETOLOGY METHOD 06/02/2024 6:36 AM [facility] Hematocrit 41.3(L) 42.0 - 54.0 % LAB HEMETOLOGY METHOD 06/02/2024 6:36 AM [facility] MCV 92.6 79.0 - 98.0 FL LAB HEMETOLOGY METHOD 06/02/2024 6:36 AM [facility] MCH 30.7 27.0 - 32.0 pcg LAB HEMETOLOGY METHOD 06/02/2024 6:36 AM [facility] MCHC 33.2 32.0 - 37.0 g/dL LAB HEMETOLOGY METHOD 06/02/2024 6:36 AM [facility] RDW 12.9 11.0 - 15.0 % LAB HEMETOLOGY METHOD 06/02/2024 6:36 AM [facility] Platelets 243 130 - 400 K/mcL LAB HEMETOLOGY METHOD 06/02/2024 6:36 AM [facility] MPV 9.9 7.0 - 11.0 FL LAB HEMETOLOGY METHOD 06/02/2024 6:36 AM [facility] NRBC 0.0 <1.0 % LAB HEMETOLOGY METHOD 06/02/2024 6:36 AM [facility] NRBC Absolute 0.00 <0.10 K/mcL LAB HEMETOLOGY METHOD 06/02/2024 6:36 AM [facility] Neutrophils Relative 34.2 % LAB HEMETOLOGY METHOD 06/02/2024 6:36 AM [facility] Lymphocytes Relative 41.5 % LAB HEMETOLOGY METHOD 06/02/2024 6:36 AM [facility] Monocytes Relative 18.6 % LAB HEMETOLOGY METHOD 06/02/2024 6:36 AM [facility] Eosinophils Relative 4.2 % LAB HEMETOLOGY METHOD 06/02/2024 6:36 AM [facility] Basophils Relative 1.1 % LAB HEMETOLOGY METHOD 06/02/2024 6:36 AM [facility] Immature Granulocytes Relative 0.4 % LAB HEMETOLOGY METHOD 06/02/2024 6:36 AM [facility] Neutrophils Absolute 1.54 1.50 - 7.00 K/mcL LAB HEMETOLOGY METHOD 06/02/2024 6:36 AM [facility] Lymphocytes Absolute 1.87 1.00 - 5.00 K/mcL LAB HEMETOLOGY METHOD 06/02/2024 6:36 AM [facility] Monocytes Absolute 0.84 0.20 - 1.00 K/mcL LAB HEMETOLOGY METHOD 06/02/2024 6:36 AM [facility] Eosinophils Absolute 0.19 0.00 - 0.50 K/mcL LAB HEMETOLOGY METHOD 06/02/2024 6:36 AM [facility] Basophils Absolute 0.05 0.00 - 0.20 K/mcL LAB HEMETOLOGY METHOD 06/02/2024 6:36 AM [facility] Immature Granulocytes Absolute 0.02 0.00 - 0.03 K/mcL LAB HEMETOLOGY METHOD 06/02/2024 6:36 AM [facility] Blood Venous blood specimen / Unknown 06/02/2024 5:40 AM EST 06/02/2024 6:22 AM EST us Abisai Vega MD LAB BLOOD ORDERABLES Final Resul t Performing Organization Address [facility] Co de Phone Number [facility] [address] [place] [address], [place] [phone] * Thyroxine free (06/02/2024 5:40 AM EST) Free T4 1.34 0.70 - 1.80 ng/dL LAB CHEMISTRY METHOD 06/02/2024 7:05 AM EST [facility] Blood Venous blood specimen / Unknown 06/02/2024 5:40 AM EST 06/02/2024 6:22 AM EST us Abisai Vega MD LAB BLOOD ORDERABLES Final Resul t Performing Organization Address [facility] de Phone Number [facility] [address] [place] [address], [place] [phone] * Thyroid stimulating hormone (06/02/2024 5:40 AM EST) TSH 0.85 0.40 - 4.00 mcIU/mL LAB CHEMISTRY METHOD 06/02/2024 7:05 AM EST [facility] Blood Venous blood specimen / Unknown 06/02/2024 5:40 AM EST 06/02/2024 6:22 AM EST us Abisai Vega MD LAB BLOOD ORDERABLES Final Resul t Performing Organization Address City/[facility] Co de Phone Number [facility] [address] [place] [address], [place] [phone] documented in this encounter Visit Diagnoses Diagnosis Other snf (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 documented in this encounter Care Teams News Specialist Relationship Specialty Start Date End Date Ronald Webster MD [address] [place] [address] PCP - General Material Scheduler 04/12/21 documented as of this encounter
--- OUTSIDE RECORDS SUMMARY | 2024-08-23 17:42 | XMS_ITS | Encounter Summary ---
Author Organization [facility] Address [address] [place] [address] Care Team Providers Care Drilling Field Specialist Name Role Phone Ronald Webster MD Primary Care Provider +1- [phone] Encounter Details Date Type Department Care Team (Late st Contact Info) Description 06/29/2024 Lab Requisition [facility] - Main Lab [address] [facility] [place] [address] Abisai Vega MD [address] [place] [address] [address] [place], [place] Diffuse traumatic brain injury with loss [...] LAB CHEMISTRY METHOD 06/29/2024 9:[address] [facility] Blood Venous blood specimen / Unknown 06/29/2024 6:36 AM EST 06/29/2024 7:[address] [facility] - 06/29/2024 9:39 AM EST The Siemens Advia Centaur Chemiluminescent Immunoassay is used. Results obtained with different assay methods or kits cannot be used interchangeably. Results cannot be interpreted as absolute evidence of the presence or absence of malignant disease. us Abisai Vega MD LAB BLOOD ORDERABLES Final Resul t Performing Organization Address [facility]/ZIP Co de Phone Number [facility] [address] [place] [address], [place] [phone] * Thyroxine free (06/29/2024 6:36 AM EST) Free T4 1.30 0.70 - 1.80 ng/dL LAB CHEMISTRY METHOD 06/29/2024 8:[address] [facility] Blood Venous blood specimen / Unknown 06/29/2024 6:36 AM EST 06/29/2024 7:23 AM EST us Abisai Vega MD LAB BLOOD ORDERABLES Final Resul t Performing Organization Address City/[facility]/ZIP Co de Phone Number [facility] [address] [place] [address], [place] [phone] * (ABNORMAL) Lipid panel with reflex to direct LDL (06/29/2024 6:36 AM EST) Cholesterol 150 0 - 200 mg/dL LAB CHEMISTRY METHOD 06/29/2024 8:[address] [facility] Triglycerides 188(H) 0 - 150 mg/dL LAB CHEMISTRY METHOD 06/29/2024 8:02 AM [facility] HDL 39(L) >=40 mg/dL LAB CHEMISTRY METHOD 06/29/2024 8:02 AM [facility] LDL Calculated 73 0 - 100 mg/dL LAB CHEMISTRY METHOD 06/29/2024 8:02 AM [facility] VLDL Cholesterol Naun 37.6 mg/dL LAB CHEMISTRY METHOD 06/29/2024 8:02 AM [facility] Non HDL Chol. (LDL+VLDL) 111 <145 mg/dL LAB CHEMISTRY METHOD 06/29/2024 8:02 AM [facility] Chol/HDL Ratio 3.8 0.0 - 4.4 LAB CHEMISTRY METHOD 06/29/2024 8:02 AM [facility] Blood Venous blood specimen / Unknown 06/29/2024 6:36 AM EST 06/29/2024 7:23 AM EST us Abisai Vega MD LAB BLOOD ORDERABLES Final Resul t [facility] [address] [place] [address], documented in this encounter Visit Diagnoses Diagnosis Diffuse traumatic brain injury with loss of consciousness of unspecified duration, sequela (CMS/HCC) documented in this encounter Care Teams Drilling Field Specialist Relationship Specialty Start Date End Date Ronald Webster MD [address] [facility] [address] [place] [address] PCP - General Powder Carrier 04/12/21 documented as of this encounter
--- OUTSIDE RECORDS SUMMARY | 2024-08-23 17:42 | XMS_ITS | Encounter Summary ---
Author Organization [facility] Address [address] [place] [address] Care Team Providers Care Acetaldehyde Converter Operator Name Role Phone Ronald Webster MD Primary Care Provider +1- [phone] Encounter Details Date Type Department Care Team (Late st Contact Info) Description 08/14/2024 Lab Requisition [facility] - Main Lab [address] [place] [address] Abisai Vega MD [address] [place] [address] [address] [place] Schizophrenia, unspecified (CMS/HCC) Social History Tobacco Use [...] 08/14/2024 6:36 AM EST Schizophrenia, unspecified (CMS/HCC) documented in this encounter Results * (ABNORMAL) CBC auto differential (08/14/2024 6:36 AM EST) WBC 7.1 4.8 - 10.8 K/[facility] LAB HEMETOLOGY METHOD 08/14/2024 7:47 AM EST [facility] RBC 4.90 4.50 - 5.50 M/mcL LAB HEMETOLOGY METHOD 08/14/2024 7:47 AM [facility] Hemoglobin 14.8 13.5 - 17.5 g/dL LAB HEMETOLOGY METHOD 08/14/2024 7:47 AM [facility] Hematocrit 43.8 42.0 - 54.0 % LAB HEMETOLOGY METHOD 08/14/2024 7:47 AM [facility] MCV 89.9 79.0 - 98.0 FL LAB HEMETOLOGY METHOD 08/14/2024 7:47 AM [facility] MCH 30.4 27.0 - 32.0 pcg LAB HEMETOLOGY METHOD 08/14/2024 7:47 AM [facility] MCHC 33.8 32.0 - 37.0 g/dL LAB HEMETOLOGY METHOD 08/14/2024 7:47 AM [facility] RDW 13.3 11.0 - 15.0 % LAB HEMETOLOGY METHOD 08/14/2024 7:47 AM [facility] Platelets 245 130 - 400 K/mcL LAB HEMETOLOGY METHOD 08/14/2024 7:47 AM [facility] MPV 9.7 7.0 - 11.0 FL LAB HEMETOLOGY METHOD 08/14/2024 7:47 AM [facility] NRBC 0.0 <1.0 % LAB HEMETOLOGY METHOD 08/14/2024 7:47 AM [facility] NRBC Absolute 0.00 <0.10 K/mcL LAB HEMETOLOGY METHOD 08/14/2024 7:47 AM [facility] Neutrophils Relative 61.0 % LAB HEMETOLOGY METHOD 08/14/2024 7:47 AM [facility] Lymphocytes Relative 22.0 % LAB HEMETOLOGY METHOD 08/14/2024 7:47 AM [facility] Monocytes Relative 14.4 % LAB HEMETOLOGY METHOD 08/14/2024 7:47 AM EST [facility] Eosinophils Relative 1.4 % LAB HEMETOLOGY METHOD 08/14/2024 7:47 AM [facility] Basophils Relative 0.6 % LAB HEMETOLOGY METHOD 08/14/2024 7:47 AM [facility] Immature Granulocytes Relative 0.6 % LAB HEMETOLOGY METHOD 08/14/2024 7:47 AM [facility] Neutrophils Absolute 4.33 1.50 - 7.00 K/mcL LAB HEMETOLOGY METHOD 08/14/2024 7:47 AM [facility] Lymphocytes Absolute 1.56 1.00 - 5.00 K/mcL LAB HEMETOLOGY METHOD 08/14/2024 7:47 AM [facility] Monocytes Absolute 1.02(H) 0.20 - 1.00 K/mcL LAB HEMETOLOGY METHOD 08/14/2024 7:47 AM [facility] Eosinophils Absolute 0.10 0.00 - 0.50 K/mcL LAB HEMETOLOGY METHOD 08/14/2024 7:47 AM [facility] Basophils Absolute 0.04 0.00 - 0.20 K/mcL LAB HEMETOLOGY METHOD 08/14/2024 7:47 AM [facility] Immature Granulocytes Absolute 0.04(H) 0.00 - 0.03 K/mcL LAB HEMETOLOGY METHOD 08/14/2024 7:47 AM [facility] Blood Venous blood specimen / Unknown 08/14/2024 6:36 AM EST 08/14/2024 7:27 AM EST us Abisai Vega MD LAB BLOOD ORDERABLES Final Resul t [facility] [address] [place] [address], [place] [phone] documented in this encounter Visit Diagnoses Diagnosis Schizophrenia, unspecified (CMS/HCC) documented in this encounter Care Teams Acetaldehyde Converter Operator Relationship Specialty Start Date End Date Ronald Webster MD [address] [address] PCP - General Garageman 04/12/21 documented as of this encounter
--- OUTSIDE RECORDS SUMMARY | 2024-08-23 17:42 | XMS_ITS | Encounter Summary ---
Author Organization [facility] Address [address] [place] [address] Care Team Providers Care Alumni Relations Coordinator Name Role Phone Ronald Webster MD Primary Care Provider +1- [phone] Encounter Details Date Type Department Care Team (Late st Contact Info) Description 06/22/2024 Lab Requisition [facility] - Main Lab [address] [facility] [place] [address] Abisai Vega MD [address] [place] [address] [address] [place], [place] Diffuse traumatic brain injury with loss [...] CBC auto differential (06/22/2024 6:38 AM EST) [facility] WBC 7.4 4.8 - 10.8 K/mcL LAB HEMETOLOGY METHOD 06/22/2024 7:[address] [facility] RBC 4.80 4.50 - 5.50 M/mcL LAB HEMETOLOGY METHOD 06/22/2024 7:[address] [facility] Hemoglobin 14.3 13.5 - 17.5 g/dL LAB HEMETOLOGY METHOD 06/22/2024 7:[address] [facility] Hematocrit 44.1 42.0 - 54.0 % LAB HEMETOLOGY METHOD 06/22/2024 7:[address] [facility] MCV 92.5 79.0 - 98.0 FL LAB HEMETOLOGY METHOD 06/22/2024 7:[address] [facility] MCH 30.0 27.0 - 32.0 pcg LAB HEMETOLOGY METHOD 06/22/2024 7:[address] [facility] MCHC 32.4 32.0 - 37.0 g/dL LAB HEMETOLOGY METHOD 06/22/2024 7:[address] [facility] RDW 12.7 11.0 - 15.0 % LAB HEMETOLOGY METHOD 06/22/2024 7:[address] [facility] Platelets 250 130 - 400 K/mcL LAB HEMETOLOGY METHOD 06/22/2024 7:[address] [facility] MPV 9.4 7.0 - 11.0 FL LAB HEMETOLOGY METHOD 06/22/2024 7:[address] [facility] NRBC 0.0 <1.0 % LAB HEMETOLOGY METHOD 06/22/2024 7:[address] [facility] NRBC Absolute 0.00 <0.10 K/mcL LAB HEMETOLOGY METHOD 06/22/2024 7:[address] [facility] Neutrophils Relative 60.2 % LAB HEMETOLOGY METHOD 06/22/2024 7:[address] [facility] Lymphocytes Relative 23.1 % LAB HEMETOLOGY METHOD 06/22/2024 7:[address] [facility] Monocytes Relative 13.4 % LAB HEMETOLOGY METHOD 06/22/2024 7:[address] [facility] Eosinophils Relative 2.4 % LAB HEMETOLOGY METHOD 06/22/2024 7:[address] [facility] Basophils Relative 0.4 % LAB HEMETOLOGY METHOD 06/22/2024 7:[address] [facility] Immature Granulocytes Relative 0.5 % LAB HEMETOLOGY METHOD 06/22/2024 7:[address] [facility] Neutrophils Absolute 4.47 1.50 - 7.00 K/mcL LAB HEMETOLOGY METHOD 06/22/2024 7:[address] [facility] Lymphocytes Absolute 1.72 1.00 - 5.00 K/mcL LAB HEMETOLOGY METHOD 06/22/2024 7:[address] [facility] Monocytes Absolute 1.00 0.20 - 1.00 K/mcL LAB HEMETOLOGY METHOD 06/22/2024 7:[address] [facility] Eosinophils Absolute 0.18 0.00 - 0.50 K/mcL LAB HEMETOLOGY METHOD 06/22/2024 7:[address] [facility] Basophils Absolute 0.03 0.00 - 0.20 K/mcL LAB HEMETOLOGY METHOD 06/22/2024 7:[address] [facility] Immature Granulocytes Absolute 0.04(H) 0.00 - 0.03 K/mcL LAB HEMETOLOGY METHOD 06/22/2024 7:[address] [facility] Blood Venous blood specimen / Unknown 06/22/2024 6:38 AM EST 06/22/2024 7:36 AM EST us Abisai Vega MD LAB BLOOD ORDERABLES Final Resul t [facility] [address] [place] [address], documented in this encounter Visit Diagnoses Diagnosis Diffuse traumatic brain injury with loss of consciousness of unspecified duration, sequela (CMS/HCC) Diverticulitis of large intestine without perforation or abscess without bleeding documented in this encounter Care Teams Alumni Relations Coordinator Relationship Specialty Start Date End Date Ronald Webster MD [address] [place] [address] PCP - General Plant General Manager 04/12/21 documented as of this encounter
--- OUTSIDE RECORDS SUMMARY | 2024-08-23 17:42 | XMS_ITS | Encounter Summary ---
Author Organization [facility] Address [address] [place] [address] Care Team Providers Care Set Up And Charger Name Role Phone Ronald Webster MD Primary Care Provider +1- [phone] Encounter Details Date Type Department Care Team (Late st Contact Info) Description 05/05/[address] [facility] - Main Lab [address] [place] [address] Abisai Vega MD [address] [place] [address] [address] [place], [place] Other terminal make up operator (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 Social History Tobacco [...] DIFFERENTIAL Routine 05/05/2024 4:50 AM EST Other half-way (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 CBC AND DIFFERENTIAL Routine 05/05/2024 4:50 AM EST Other terminal make up operator (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 documented in this encounter Results * (ABNORMAL) CBC auto differential (05/05/2024 4:50 AM EST) WBC 7.5 4.8 - 10.8 K/[facility] LAB HEMETOLOGY METHOD 05/05/2024 7:26 AM EST [facility] LAB RBC 4.00(L) 4.50 - 5.50 M/mcL LAB HEMETOLOGY METHOD 05/05/2024 7:26 AM [facility] LAB Hemoglobin 12.4(L) 13.5 - 17.5 g/dL LAB HEMETOLOGY METHOD 05/05/2024 7:26 AM [facility] LAB Hematocrit 38.0(L) 42.0 - 54.0 % LAB HEMETOLOGY METHOD 05/05/2024 7:26 AM [facility] LAB MCV 94.8 79.0 - 98.0 FL LAB HEMETOLOGY METHOD 05/05/2024 7:26 AM [facility] LAB MCH 30.9 27.0 - 32.0 pcg LAB HEMETOLOGY METHOD 05/05/2024 7:26 AM [facility] LAB MCHC 32.6 32.0 - 37.0 g/dL LAB HEMETOLOGY METHOD 05/05/2024 7:26 AM [facility] LAB RDW 12.7 11.0 - 15.0 % LAB HEMETOLOGY METHOD 05/05/2024 7:26 AM [facility] LAB Platelets 255 130 - 400 K/mcL LAB HEMETOLOGY METHOD 05/05/2024 7:26 AM [facility] LAB MPV 9.8 7.0 - 11.0 FL LAB HEMETOLOGY METHOD 05/05/2024 7:26 AM [facility] LAB NRBC 0.0 <1.0 % LAB HEMETOLOGY METHOD 05/05/2024 7:26 AM [facility] LAB NRBC Absolute 0.00 <0.10 K/mcL LAB HEMETOLOGY METHOD 05/05/2024 7:26 AM [facility] LAB Neutrophils Relative 50.7 % LAB HEMETOLOGY METHOD 05/05/2024 7:26 AM [facility] LAB Lymphocytes Relative 32.4 % LAB HEMETOLOGY METHOD 05/05/2024 7:26 AM [facility] LAB Monocytes Relative 13.7 % LAB HEMETOLOGY METHOD 05/05/2024 7:26 AM [facility] LAB Eosinophils Relative 2.1 % LAB HEMETOLOGY METHOD 05/05/2024 7:26 AM [facility] LAB Basophils Relative 0.7 % LAB HEMETOLOGY METHOD 05/05/2024 7:26 AM [facility] LAB Immature Granulocytes Relative 0.4 % LAB HEMETOLOGY METHOD 05/05/2024 7:26 AM [facility] LAB Neutrophils Absolute 3.78 1.50 - 7.00 K/mcL LAB HEMETOLOGY METHOD 05/05/2024 7:26 AM [facility] LAB Lymphocytes Absolute 2.42 1.00 - 5.00 K/mcL LAB HEMETOLOGY METHOD 05/05/2024 7:26 AM [facility] LAB Monocytes Absolute 1.02(H) 0.20 - 1.00 K/mcL LAB HEMETOLOGY METHOD 05/05/2024 7:26 AM [facility] LAB Eosinophils Absolute 0.16 0.00 - 0.50 K/mcL LAB HEMETOLOGY METHOD 05/05/2024 7:26 AM [facility] LAB Basophils Absolute 0.05 0.00 - 0.20 K/mcL LAB HEMETOLOGY METHOD 05/05/2024 7:26 AM [facility] LAB Immature Granulocytes Absolute 0.03 0.00 - 0.03 K/mcL LAB HEMETOLOGY METHOD 05/05/2024 7:26 AM [facility] LAB Blood Venous blood specimen / Unknown 05/05/2024 4:50 AM EST 05/05/2024 6:44 AM EST us Abisai Vega MD LAB BLOOD ORDERABLES Final Resul t [facility] LAB [address] [place] [address], [place] [phone] documented in this encounter Visit Diagnoses Diagnosis Other terminal make up operator (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 documented in this encounter Care Teams Set Up And Charger Relationship Specialty Start Date End Date Ronald Webster MD [address] [facility] [address] [place] [address] PCP - General Pre Billing Specialist 04/12/21 documented as of this encounter
--- OUTSIDE RECORDS SUMMARY | 2024-08-23 17:42 | XMS_ITS | Clinical Summary ---
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 Care Teams Can Patcher Relationship Specialty Start Date End Date Ronald Webster MD [address] [facility] [address] [facility] [place] [address] PCP - General Miter Grinder Operator 04/12/21
--- OUTSIDE RECORDS SUMMARY | 2024-08-23 17:42 | XMS_ITS | Encounter Summary ---
Author Organization [facility] Address [address] [place] [address] Care Team Providers Care Furniture Delivery Driver Name Role Phone Ronald Webster MD Primary Care Provider +1- [phone] Encounter Details Date Type Department Care Team (Late st Contact Info) Description 05/22/[address] [facility] - Main Lab [address] [place] [address] Abisai Vega MD [address] [place] [address] [address] [place], [place] Other exterminator termite (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 Social History Tobacco Use [...] DIFFERENTIAL Routine 05/22/2024 6:55 AM EST Other assisted (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 CBC AND DIFFERENTIAL Routine 05/22/2024 6:55 AM EST Other exterminator termite (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 documented in this encounter Results * (ABNORMAL) CBC auto differential (05/22/2024 6:55 AM EST) WBC 7.6 4.8 - 10.8 K/[facility] LAB HEMETOLOGY METHOD 05/22/2024 7:[address] [facility] LAB RBC 4.70 4.50 - 5.50 M/[facility] LAB HEMETOLOGY METHOD 05/22/2024 7:40 AM [facility] LAB Hemoglobin 14.6 13.5 - 17.5 g/dL LAB HEMETOLOGY METHOD 05/22/2024 7:40 AM [facility] LAB Hematocrit 43.8 42.0 - 54.0 % LAB HEMETOLOGY METHOD 05/22/2024 7:40 AM [facility] LAB MCV 93.2 79.0 - 98.0 FL LAB HEMETOLOGY METHOD 05/22/2024 7:40 AM [facility] LAB MCH 31.1 27.0 - 32.0 pcg LAB HEMETOLOGY METHOD 05/22/2024 7:40 AM [facility] LAB MCHC 33.3 32.0 - 37.0 g/dL LAB HEMETOLOGY METHOD 05/22/2024 7:40 AM [facility] LAB RDW 12.7 11.0 - 15.0 % LAB HEMETOLOGY METHOD 05/22/2024 7:40 AM [facility] LAB Platelets 267 130 - 400 K/mcL LAB HEMETOLOGY METHOD 05/22/2024 7:40 AM [facility] LAB MPV 9.4 7.0 - 11.0 FL LAB HEMETOLOGY METHOD 05/22/2024 7:40 AM [facility] LAB NRBC 0.0 <1.0 % LAB HEMETOLOGY METHOD 05/22/2024 7:40 AM [facility] LAB NRBC Absolute 0.00 <0.10 K/mcL LAB HEMETOLOGY METHOD 05/22/2024 7:40 AM [facility] LAB Neutrophils Relative 55.3 % LAB HEMETOLOGY METHOD 05/22/2024 7:40 AM [facility] LAB Lymphocytes Relative 25.4 % LAB HEMETOLOGY METHOD 05/22/2024 7:40 AM [facility] LAB Monocytes Relative 15.5 % LAB HEMETOLOGY METHOD 05/22/2024 7:[address] [facility] LAB Eosinophils Relative 2.5 % LAB HEMETOLOGY METHOD 05/22/2024 7:40 AM [facility] LAB Basophils Relative 0.5 % LAB HEMETOLOGY METHOD 05/22/2024 7:40 AM [facility] LAB Immature Granulocytes Relative 0.8 % LAB HEMETOLOGY METHOD 05/22/2024 7:[address] [facility] LAB Neutrophils Absolute 4.19 1.50 - 7.00 K/mcL LAB HEMETOLOGY METHOD 05/22/2024 7:40 AM [facility] LAB Lymphocytes Absolute 1.93 1.00 - 5.00 K/mcL LAB HEMETOLOGY METHOD 05/22/2024 7:40 AM [facility] LAB Monocytes Absolute 1.18(H) 0.20 - 1.00 K/mcL LAB HEMETOLOGY METHOD 05/22/2024 7:[address] [facility] LAB Eosinophils Absolute 0.19 0.00 - 0.50 K/mcL LAB HEMETOLOGY METHOD 05/22/2024 7:40 AM [facility] LAB Basophils Absolute 0.04 0.00 - 0.20 K/mcL LAB HEMETOLOGY METHOD 05/22/2024 7:40 AM [facility] LAB Immature Granulocytes Absolute 0.06(H) 0.00 - 0.03 K/mcL LAB HEMETOLOGY METHOD 05/22/2024 7:40 AM [facility] LAB Blood Venous blood specimen / Unknown 05/22/2024 6:55 AM EST 05/22/2024 7:26 AM EST us Abisai Vega MD LAB BLOOD ORDERABLES Final Resul t [facility] LAB [address] [place], [place] [address] [phone] documented in this encounter Visit Diagnoses Diagnosis Other assisted (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 documented in this encounter Care Teams Furniture Delivery Driver Relationship Specialty Start Date End Date Ronald Webster MD [address] [address] PCP - General Residential Real Estate Assistant 04/12/21 documented as of this encounter
--- OUTSIDE RECORDS SUMMARY | 2024-08-23 17:42 | XMS_ITS | Encounter Summary ---
Author Organization [facility] Address [address] [place] [address] Care Team Providers Care Corporate Job Titles Name Role Phone Ronald Webster MD Primary Care Provider +1- [phone] Encounter Details Date Type Department Care Team (Late st Contact Info) Description 06/15/[address] 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 documented in this encounter Results * (ABNORMAL) CBC auto differential (06/15/2024 7:05 AM EST) WBC 7.6 4.8 - 10.8 K/[facility] LAB HEMETOLOGY METHOD 06/15/2024 7:56 AM EST [facility] LAB RBC 4.60 4.50 - 5.50 M/[facility] LAB HEMETOLOGY METHOD 06/15/2024 7:56 AM [facility] LAB Hemoglobin 14.1 13.5 - 17.5 g/dL LAB HEMETOLOGY METHOD 06/15/2024 7:56 AM [facility] LAB Hematocrit 42.8 42.0 - 54.0 % LAB HEMETOLOGY METHOD 06/15/2024 7:56 AM [facility] LAB MCV 92.2 79.0 - 98.0 FL LAB HEMETOLOGY METHOD 06/15/2024 7:56 AM [facility] LAB MCH 30.4 27.0 - 32.0 pcg LAB HEMETOLOGY METHOD 06/15/2024 7:56 AM [facility] LAB MCHC 32.9 32.0 - 37.0 g/dL LAB HEMETOLOGY METHOD 06/15/2024 7:56 AM [facility] LAB RDW 12.8 11.0 - 15.0 % LAB HEMETOLOGY METHOD 06/15/2024 7:56 AM [facility] LAB Platelets 257 130 - 400 K/mcL LAB HEMETOLOGY METHOD 06/15/2024 7:56 AM [facility] LAB MPV 9.6 7.0 - 11.0 FL LAB HEMETOLOGY METHOD 06/15/2024 7:56 AM [facility] LAB NRBC 0.0 <1.0 % LAB HEMETOLOGY METHOD 06/15/2024 7:56 AM [facility] LAB NRBC Absolute 0.00 <0.10 K/mcL LAB HEMETOLOGY METHOD 06/15/2024 7:56 AM [facility] LAB Neutrophils Relative 63.0 % LAB HEMETOLOGY METHOD 06/15/2024 7:56 AM [facility] LAB Lymphocytes Relative 20.8 % LAB HEMETOLOGY METHOD 06/15/2024 7:56 AM [facility] LAB Monocytes Relative 12.4 % LAB HEMETOLOGY METHOD 06/15/2024 7:56 AM [facility] LAB Eosinophils Relative 2.4 % LAB HEMETOLOGY METHOD 06/15/2024 7:56 AM [facility] LAB Basophils Relative 0.7 % LAB HEMETOLOGY METHOD 06/15/2024 7:56 AM [facility] LAB Immature Granulocytes Relative 0.7 % LAB HEMETOLOGY METHOD 06/15/2024 7:56 AM EST [facility] LAB Neutrophils Absolute 4.79 1.50 - 7.00 K/mcL LAB HEMETOLOGY METHOD 06/15/2024 7:56 AM [facility] LAB Lymphocytes Absolute 1.58 1.00 - 5.00 K/mcL LAB HEMETOLOGY METHOD 06/15/2024 7:56 AM [facility] LAB Monocytes Absolute 0.94 0.20 - 1.00 K/mcL LAB HEMETOLOGY METHOD 06/15/2024 7:56 AM EST [facility] LAB Eosinophils Absolute 0.18 0.00 - 0.50 K/mcL LAB HEMETOLOGY METHOD 06/15/2024 7:56 AM [facility] LAB Basophils Absolute 0.05 0.00 - 0.20 K/mcL LAB HEMETOLOGY METHOD 06/15/2024 7:56 AM [facility] LAB Immature Granulocytes Absolute 0.05(H) 0.00 - 0.03 K/mcL LAB HEMETOLOGY METHOD 06/15/2024 7:56 AM [facility] LAB Blood Venous blood specimen / Unknown 06/15/2024 7:05 AM EST 06/15/2024 7:41 AM EST us Abisai Vega MD LAB BLOOD ORDERABLES Final Resul t [facility] LAB [address] [place] [address], documented in this encounter Visit Diagnoses Diagnosis 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
--- OUTSIDE RECORDS SUMMARY | 2024-08-23 17:42 | XMS_ITS | Encounter Summary ---
Author Organization [facility] Address [address] [place] [address] Care Team Providers Care Processing Archivist Name Role Phone Ronald Webster MD Primary Care Provider +1- [phone] Encounter Details Date Type Department Care Team (Late st Contact Info) Description 06/27/2024 Lab Requisition [facility] - Main Lab [address] [facility] [place] [address] Abisai Vega MD [address] [place] [address] [address] [place], [place] Diffuse traumatic brain injury with loss [...] AM EST) WBC 7.6 4.8 - 10.8 K/[facility] LAB HEMETOLOGY METHOD 06/27/2024 8:07 AM [facility] LAB RBC 4.70 4.50 - 5.50 M/mcL LAB HEMETOLOGY METHOD 06/27/2024 8:07 AM [facility] LAB Hemoglobin 14.3 13.5 - 17.5 g/dL LAB HEMETOLOGY METHOD 06/27/2024 8:07 AM [facility] LAB Hematocrit 43.5 42.0 - 54.0 % LAB HEMETOLOGY METHOD 06/27/2024 8:07 AM [facility] LAB MCV 93.3 79.0 - 98.0 FL LAB HEMETOLOGY METHOD 06/27/2024 8:07 AM [facility] LAB MCH 30.7 27.0 - 32.0 pcg LAB HEMETOLOGY METHOD 06/27/2024 8:07 AM [facility] LAB MCHC 32.9 32.0 - 37.0 g/dL LAB HEMETOLOGY METHOD 06/27/2024 8:07 AM [facility] LAB RDW 13.1 11.0 - 15.0 % LAB HEMETOLOGY METHOD 06/27/2024 8:07 AM [facility] LAB Platelets 228 130 - 400 K/mcL LAB HEMETOLOGY METHOD 06/27/2024 8:07 AM [facility] LAB MPV 9.8 7.0 - 11.0 FL LAB HEMETOLOGY METHOD 06/27/2024 8:07 AM [facility] LAB NRBC 0.0 <1.0 % LAB HEMETOLOGY METHOD 06/27/2024 8:07 AM [facility] LAB NRBC Absolute 0.00 <0.10 K/mcL LAB HEMETOLOGY METHOD 06/27/2024 8:07 AM [facility] LAB Neutrophils Relative 62.2 % LAB HEMETOLOGY METHOD 06/27/2024 8:07 AM [facility] LAB Lymphocytes Relative 20.9 % LAB HEMETOLOGY METHOD 06/27/2024 8:07 AM [facility] LAB Monocytes Relative 13.6 % LAB HEMETOLOGY METHOD 06/27/2024 8:07 AM [facility] LAB Eosinophils Relative 2.2 % LAB HEMETOLOGY METHOD 06/27/2024 8:07 AM [facility] LAB Basophils Relative 0.7 % LAB HEMETOLOGY METHOD 06/27/2024 8:07 AM [facility] LAB Immature Granulocytes Relative 0.4 % LAB HEMETOLOGY METHOD 06/27/2024 8:07 AM [facility] LAB Neutrophils Absolute 4.75 1.50 - 7.00 K/mcL LAB HEMETOLOGY METHOD 06/27/2024 8:07 AM [facility] LAB Lymphocytes Absolute 1.60 1.00 - 5.00 K/mcL LAB HEMETOLOGY METHOD 06/27/2024 8:07 AM [facility] LAB Monocytes Absolute 1.04(H) 0.20 - 1.00 K/mcL LAB HEMETOLOGY METHOD 06/27/2024 8:07 AM [facility] LAB Eosinophils Absolute 0.17 0.00 - 0.50 K/mcL LAB HEMETOLOGY METHOD 06/27/2024 8:07 AM [facility] LAB Basophils Absolute 0.05 0.00 - 0.20 K/mcL LAB HEMETOLOGY METHOD 06/27/2024 8:07 AM [facility] LAB Immature Granulocytes Absolute 0.03 0.00 - 0.03 K/mcL LAB HEMETOLOGY METHOD 06/27/2024 8:07 AM [facility] LAB Blood Venous blood specimen / Unknown 06/27/2024 7:00 AM EST 06/27/2024 7:57 AM EST Abisai Vega MD LAB BLOOD ORDERABLES Final Resul t [facility] [place] [facility] [address] [place] [address], documented in this encounter Visit Diagnoses Diagnosis Diffuse traumatic brain injury with loss of consciousness of unspecified duration, sequela (CMS/HCC) documented in this encounter Care Teams Processing Archivist Relationship Specialty Start Date End Date Ronald Webster MD [address] [facility] [address] [place] [address] PCP - General Director Strategic Account Management 04/12/21 documented as of this encounter
--- NOTE | 2024-12-18 12:35 | HO.ANESPROP2 ---
Documented by User: Claudia Jonas NP 12/18/24 12:36 HPI - Anesthesia Eval Consult details Narrative: 59yo M for Colonoscopy SNF resident, hx TBI PMFSH Active Problems Active Problems: All Active Problems COVID-19 (Acute) Acute UTI (Acute) Pain at surgical site (Acute) Hernia (Acute) Hemorrhoid (Acute) Left inguinal hernia (Acute) Right groin mass (Acute) Tubular adenoma (Acute) Past Medical History Medical History Pain at surgical site Resides in prison facility Left inguinal hernia Right groin mass Tubular adenoma Personal history of COVID-19 Presbyopia Dysphagia Zygomatic fracture, left side, sequela Zygomatic fracture, right side, sequela Opioid abuse Insomnia Constipation Traumatic subdural hematoma with loss of consciousness BPH (benign prostatic hyperplasia) Hypothyroidism (acquired) Schizophrenia Diffuse traumatic brain injury Family History Family history of problems with anesthesia: No Surgical History Surgical History Hx of left inguinal hernia repair (11/02/23) Hx of colonoscopy History of Problems with Anesthesia: No Social History Social History Household Members: Other Household Members Other:: [facility] Housing: Other Housing Other:: as above noted Unable to assess alcohol history related to: Unable to respond Alcohol intake: current Alcohol intake frequency: does not drink Comment: counts correct Patient Tobacco Use Status: Former Tobacco user Tobacco use type: Cigarette Cigarette Packs Per Day: 0.5 Cigarettes Per Day: 4 Have you been hit, kicked, punched, or otherwise hurt by someone within the past year? If so, by whom?: No Are you DNR?: No Advance Directives: No Advance Directives Information Provided: Yes Advance Directives Date on File: 10/29/23 service: No Meds Allergies Allergy/AdvReac Type Severity Reaction Status Date / Time No Known Allergies Allergy Verified 11/16/24 23:00 Home Medications ?Medication ?Instructions ?Recorded ?Confirmed ?Last Taken ?Type acetaminophen 325 mg tablet 650 mg PO Q6H PRN Fever Or Pain 03/09/23 11/17/24 10/24/24 History benztropine 1 mg tablet 1 mg PO BEDTIME 03/09/23 11/17/24 11/16/24 History clonazepam 0.5 mg tablet 0.5 mg PO BID 03/09/23 11/17/24 11/16/24 History ibuprofen 600 mg tablet 600 mg PO Q6H PRN Back Pain 03/09/23 11/17/24 10/26/24 History lactulose 10 gram/15 mL oral 30 ml PO BID 03/09/23 11/17/24 11/16/24 History solution divalproex 500 mg tablet,extended 500 mg PO 2XD 06/14/23 11/17/24 11/16/24 History release 24 hr docusate sodium 100 mg capsule 100 mg PO DAILY 06/14/23 11/17/24 11/16/24 History guaifenesin 200 mg/5 mL oral liquid 400 mg PO Q4H PRN Congestion 06/14/23 11/17/24 Unknown History levothyroxine 50 mcg tablet 50 mcg PO DAILY@0600 06/14/23 11/17/24 11/15/24 History sennosides 8.6 mg tablet (senna) 8.6 mg PO DAILY PRN Constipation 06/14/23 11/17/24 Unknown History sodium phosphates 19 gram-7 118 ml MO DAILY PRN Constipation 06/14/23 11/17/24 Unknown History gram/118 mL enema (Fleet Enema) tamsulosin 0.4 mg capsule 0.4 mg PO BEDTIME 06/14/23 11/17/24 11/16/24 History metoprolol succinate 25 mg 25 mg PO DAILY 11/15/23 11/17/24 11/16/24 History tablet,extended release 24 hr clozapine 100 mg tablet 100 mg PO BEDTIME 03/22/24 11/17/24 11/16/24 History clozapine 50 mg tablet 50 mg PO BEDTIME 03/22/24 11/17/24 11/16/24 History aluminum-mag hydroxide-simethicone 30 ml PO Q8H PRN Indigestion 11/17/24 11/17/24 11/04/24 History 400 mg-400 mg-40 mg/5 mL oral susp atorvastatin 10 mg tablet 10 mg PO BID 11/17/24 11/17/24 11/16/24 History bisacodyl 10 mg rectal suppository 10 mg MO DAILY PRN Constipation 11/17/24 11/17/24 Unknown History clozapine 200 mg tablet 400 mg PO BEDTIME 11/17/24 11/17/24 11/16/24 History polyethylene glycol 3350 17 gram 17 g PO DAILY 11/17/24 11/17/24 11/16/24 History oral powder packet Assessment and Plan Assessment Anesthesia Assessment: Chart Reviewed Final Anesthetic Review Family History of Problems with Anesthesia: No History of Problems with Anesthesia: No Documented by User: Jhon Bowles MD 12/19/24 09:11 [facility] Past Medical History Medical History Pain at surgical site Resides in prison facility Left inguinal hernia Right groin mass Tubular adenoma Personal history of COVID-19 Presbyopia Dysphagia Zygomatic fracture, left side, sequela Zygomatic fracture, right side, sequela Opioid abuse Insomnia Constipation Traumatic subdural hematoma with loss of consciousness BPH (benign prostatic hyperplasia) Hypothyroidism (acquired) Schizophrenia Diffuse traumatic brain injury Surgical History Surgical History Hx of left inguinal hernia repair (11/02/23) Hx of colonoscopy Social History Social History Household Members: Other Household Members Other:: [facility] Housing: Other Housing Other:: as above noted Unable to assess alcohol history related to: Unable to respond Alcohol intake: current Alcohol intake frequency: does not drink Comment: counts correct Patient Tobacco Use Status: Former Tobacco user Tobacco use type: Cigarette Cigarette Packs Per Day: 0.5 Cigarettes Per Day: 4 Have you been hit, kicked, punched, or otherwise hurt by someone within the past year? If so, by whom?: No Are you DNR?: No Advance Directives: No Advance Directives Information Provided: Yes Advance Directives Date on File: 10/29/23 service: No Meds Allergies Allergy/AdvReac Type Severity Reaction Status Date / Time No Known Allergies Allergy Verified 11/16/24 23:00 Home Medications ?Medication ?Instructions ?Recorded ?Confirmed ?Last Taken ?Type acetaminophen 325 mg tablet 650 mg PO Q6H PRN Fever Or Pain 03/09/23 11/17/24 10/24/24 History benztropine 1 mg tablet 1 mg PO BEDTIME 03/09/23 11/17/24 11/16/24 History clonazepam 0.5 mg tablet 0.5 mg PO BID 03/09/23 11/17/24 11/16/24 History ibuprofen 600 mg tablet 600 mg PO Q6H PRN Back Pain 03/09/23 11/17/24 10/26/24 History lactulose 10 gram/15 mL oral 30 ml PO BID 03/09/23 11/17/24 11/16/24 History solution divalproex 500 mg tablet,extended 500 mg PO 2XD 06/14/23 11/17/24 11/16/24 History release 24 hr docusate sodium 100 mg capsule 100 mg PO DAILY 06/14/23 11/17/24 11/16/24 History guaifenesin 200 mg/5 mL oral liquid 400 mg PO Q4H PRN Congestion 06/14/23 11/17/24 Unknown History levothyroxine 50 mcg tablet 50 mcg PO DAILY@0600 06/14/23 11/17/24 11/15/24 History sennosides 8.6 mg tablet (senna) 8.6 mg PO DAILY PRN Constipation 06/14/23 11/17/24 Unknown History sodium phosphates 19 gram-7 118 ml MO DAILY PRN Constipation 06/14/23 11/17/24 Unknown History gram/118 mL enema (Fleet Enema) tamsulosin 0.4 mg capsule 0.4 mg PO BEDTIME 06/14/23 11/17/24 11/16/24 History metoprolol succinate 25 mg 25 mg PO DAILY 11/15/23 11/17/24 11/16/24 History tablet,extended release 24 hr clozapine 100 mg tablet 100 mg PO BEDTIME 03/22/24 11/17/24 11/16/24 History clozapine 50 mg tablet 50 mg PO BEDTIME 03/22/24 11/17/24 11/16/24 History aluminum-mag hydroxide-simethicone 30 ml PO Q8H PRN Indigestion 11/17/24 11/17/24 11/04/24 History 400 mg-400 mg-40 mg/5 mL oral susp atorvastatin 10 mg tablet 10 mg PO BID 11/17/24 11/17/24 11/16/24 History bisacodyl 10 mg rectal suppository 10 mg MO DAILY PRN Constipation 11/17/24 11/17/24 Unknown History clozapine 200 mg tablet 400 mg PO BEDTIME 11/17/24 11/17/24 11/16/24 History polyethylene glycol 3350 17 gram 17 g PO DAILY 11/17/24 11/17/24 11/16/24 History oral powder packet Exam Airway Mallampati Class: II TM Dist: <=3cm Neck ROM: Full Heart: ok Lungs: ok Assessment and Plan Assessment Anesthesia Assessment: Anesthesia Plan Discussed Final Anesthetic Review NPO: Yes ASA Class: III Final Preanesthetic Review: No Changes in Pt Med Stat, Meds/Allgs Chart Reviewed, Consent Obtained/Reviewed and Anes Risks/Benef Reviewed Patient Risk: High Procedure Risk: Low Anesthetic Plan Anesthetic Plan: MAC: and Agree w/ Assess. and Plan Disposition: Standard PACU
[2024-12-19 07:00] VITALS: BMI 28.6
[2024-12-19 07:41] VITALS: BP 143/84; PULSE 100; RESP 20; TEMP 36.3; O2SAT 99; BMI 26.9
[2024-12-19] MEDS: Lactated Ringers 1,000 ML 100 ML IVCONT (08:04)
--- NOTE | 2024-12-19 08:07 | PC.NURSE ---
pt a/ox4 cant be aggressive at times yelling at rn and called this rn whore easily redirected it support engineer and psych sitter with patient comes from [facility]
--- NOTE | 2024-12-19 08:46 | P.OPN-COLO_ITS ---
Colonoscopy Operative Note Operative Note Date of Service: 12/19/24 Narrative: Operative Information Procedure Description: Colonoscopy Indication: screening Anesthesia: MAC COLONOSCOPY Instrument: Olympus variable stiffness ADULT scope 190L Colonoscopy Monitoring: Vital signs and clinical assessment, continuous EKG monitoring, Pulse oximetry, Carbon Dioxide monitoring and blood pressure monitoring were done throughout the procedure. Colon withdrawal time was 12 minutes. Procedure: The patient was placed in the left lateral decubitis position and pre-procedure medications were administered. After a digital rectal examination of the ano-rectum, the video colonoscope was inserted into the rectum and advanced through the colon to the cecum/TI. The colonoscope was slowly withdrawn in a retrograde panoramic fashion and the colon mucosa was carefully examined including a retroflexed view of the rectum. Findings and interventions are described below. Procedure Difficulty: moderate Findings: Terminal Ileum-normal Cecum:normal Ascending Colon: 8-10 mm sessile polyp removed with cold snare Transverse Colon -normal Descending Colon: moderate diverticulosis Sigmoid Colon: moderate severe diverticulosis Rectum: Retroflexion with small internal hemorrhoids seen, grade I Anorectum - normal Intervention: cold snare Colon preparation: [place] Bowel Preparation Scale Right colon; 2 Transverse colon: 2 Left colon; 1-2 (0 = Unprepared colon segment with mucosa not seen due to solid stool that cannot be cleared. 1 = Portion of mucosa of the colon segment seen, but other areas of the colon segment not well seen due to staining, residual stool and/or opaque liquid. 2 = Minor amount of residual staining, small fragments of stool and/or opaque liquid, but mucosa of colon segment seen well. 3 = Entire mucosa of colon segment seen well with no residual staining, small fragments of stool or opaque liquid) Impression and Post Procedure Diagnosis: diverticulosis colon polyps internal hemorrhoids Plan: High fiber diet leaflet Avoid straining at stool, epsom salts and sitz bath, anusol supps or cream Repeat Colonoscopy in 3 years due to polyp and some areas of fair prep or earlier if clinically indicated Above findings were reviewed with the patient and relevant handouts were provided if indicated.
--- NOTE | 2024-12-19 08:47 | P.HPSUR_ITS ---
Pre-Procedural Eval Section A - 24 Hr Update-Section A only Date of Service: 12/19/24 Section B - Complete if H&P > 30 days Chief Complaint: screening Relevant Family History (Specify if Yes): No Relevant Social History: None Present Medications: see Short Stay Collaborative assessment Medical History: Significant History (Pain at surgical site [facility]ides in [facility] Left inguinal hernia Right groin mass Tubular adenoma Personal history of COVID-19 Presbyopia Dysphagia Zygomatic fracture, left side, sequela Zygomatic fracture, right side, sequela Opioid abuse Insomnia Constipation Trau matic subdural hemat) History of Previous Operations: Relevant previous surgery/procedure and date(s) (Hx of left inguinal hernia repair (11/02/23) Hx of colonoscopy) Allergies: Allergies Allergy/AdvReac Type Severity Reaction Status Date / Time No Known Allergies Allergy Verified 11/16/24 23:00 Review of Systems Sugical H&P ROS: Negative: Constitution, Cardiovascular, Respiratory, Neurological, Psychiatric, Hem-Onc, Allergic/Immunologic, Gastrointestinal, Genitourinary, Musculoskeletal, Integumentary, Endocrine and Eyes/Ears/Nose/Throat Exam Surgical H&P Exam: Normal: HEENT, Normal: Heart, Normal: Lungs, Normal: Extremities, Normal: Abdomen, Normal: Skin and Normal: Neurological Plan Diagnosis/Plan: Unchanged I have reviewed the history and physical and performed a pertinent physical examination on my patient. No changes have occurred unless specified. Time Spent With Patient Time: Total time managing care of this patient today ____ minutes.
[2024-12-19 09:32] VITALS: BP 117/77; PULSE 79; RESP 16; TEMP 36.7; O2SAT 96
[2024-12-19 09:47] VITALS: BP 118/73; PULSE 84; RESP 20; TEMP 36.6; O2SAT 96
== END 2024-12-19 09:47 | disposition home or self-care (01) ==
PROVIDERS: PCP Hospitalist; Visit Provider Internal Medicine Gastroenterology
PROC: 0DJD8ZZ Inspection of Lower Intestinal Tract, Via Natural or Artificial Opening Endoscopic (ICD-10-PCS; CPT 45378; principal; 2024-12-19 09:10)
DX: Z12.11 Encounter for screening for malignant neoplasm of colon (principal); D12.2 Benign neoplasm of ascending colon; K57.30 Diverticulosis of large intestine without perforation or abscess without bleeding; K64.0 First degree hemorrhoids; Z86.0101 Personal history of adenomatous and serrated colon polyps; E03.9 Hypothyroidism, unspecified; F17.210 Nicotine dependence, cigarettes, uncomplicated
CPT/HCPCS: 45385; 88305; J2003; J2704

== ENCOUNTER → 2024-12-19 07:24 | Outpatient (BNV) | payer MEDICAID, SELFPAY | PROVIDERS: PCP Hospitalist; Visit Provider Internal Medicine Gastroenterology | DX: Z12.11 Encounter for screening for malignant neoplasm of colon (principal); K63.5 Polyp of colon; K57.90 Diverticulosis of intestine, part unspecified, without perforation or abscess without bleeding; K64.0 First degree hemorrhoids | CPT/HCPCS: 45385 ==